=== PATIENT | female | born 1950 | race Caucasian/White ===

== ENCOUNTER 2020-07-20 09:26 | Outpatient (CLI) | payer OTHER, SELFPAY ==
--- NOTE | ~2020-07-20 | MM_ITS ---
EXAMINATION: MM screening [facility] BI w noe HISTORY: Screening TECHNIQUE: Craniocaudal and mediolateral oblique 3-D tomosynthesis images were obtained and synthetic 2-D images were generated. CAD analysis was submitted and interpreted. COMPARISON: Comparison to multiple prior studies sequentially, with oldest reviewed study dated 07/01. BREAST PARENCHYMAL COMPOSITION: There are scattered areas of fibroglandular density. FINDINGS: There is no evidence of suspicious mass, calcification, or architectural distortion to sugg est malignancy in either breast. There has been no suspicious interval change. IMPRESSION: 1. No mammographic evidence of malignancy. 2. Recommend routine screening mammography in one year. BI-RADS Category 1: Negative Reviewed, dictated and finalized at location A.
== END 2020-07-20 09:27 | disposition home or self-care (01) ==
LOC: ANHIMG 09:32
PROVIDERS: PCP Physician Assistant; Visit Provider Physician Assistant
DX: Z12.31 Encounter for screening mammogram for malignant neoplasm of breast (principal)
CPT/HCPCS: 77063; 77067

== ENCOUNTER → 2020-09-02 10:21 | Outpatient (CLI) | payer OTHER, SELFPAY ==
--- NOTE | ~2020-09-02 | MR_ITS ---
EXAMINATION: MR shoulder RT wo con DATE: 09/02/2020 11:18 INDICATION: Right shoulder pain. TECHNIQUE: Magnetic resonance imaging (MRI) of the right shoulder was performed without intravenous c ontrast. Sequences included axial PD-weighted FS FSE, coronal oblique PD-weighted FS FSE and T2-weigh russ FS FSE, and sagittal oblique T2-weighted FS FSE and T1-weighted FSE. COMPARISON: None. FINDINGS: Coracoacromial arch: The acromion undersurface is curved in morphology (type II). There is severe acromioclavicular joint osteoarthritis including inferiorly directed osteophytes. There is moderate subacromial/subdeltoid bu rsitis. Rotator cuff: There is a full-thickness tear of anterior supraspinatus tendon measuring 4 mm anterior to posterior by 8 mm proximal to distal. There is severe supraspinatus and infraspinatus tendinopathy. Teres minor tendon is normal. There is mild subscapularis tendinopathy. There is no asymmetric fatty atrophy of the rotator cuff muscle bellies. Biceps tendon and glenoid labrum: Biceps tendon is in bicipital groove. Intra-articular biceps tendon is normal. The glenoid labrum is normal. Fluid: There is a small glenohumeral joint effusion. Bones/cartilage: There is cartilage surface irregularity of glenoid and humeral head. IMPRESSION: 1. Full-thickness rotator cuff tear. 2. Mild glenohumeral joint chondrosis. 3. Severe acromioclavicular joint osteoarthritis. 4. Moderate subacromial/subdeltoid bursitis and small glenohumeral joint effusion. Reviewed, dictated and finalized at location A. 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 Full-thickness rotator cuff tear. 2. Mild glenohumeral joint chondrosis. 3. Severe acromioclavicular joint osteoarthritis. 4. Moderate subacromial/subdeltoid bursitis and small glenohumeral joint effusi on.
== END ==
PROVIDERS: PCP Physician Assistant; Visit Provider Orthopaedic Surgery
DX: M19.012 Primary osteoarthritis, left shoulder (principal); M75.51 Bursitis of right shoulder; M75.121 Complete rotator cuff tear or rupture of right shoulder, not specified as traumatic; M25.411 Effusion, right shoulder
CPT/HCPCS: 73221

== ENCOUNTER 2020-09-12 09:09 | Outpatient (NON) | payer OTHER, SELFPAY ==
[2020-09-12 18:51] LABS: SARS-CoV-2 RNA PCR Positive
== END 2020-09-12 09:10 ==
LOC: ANHCOVIDDT 09:12
PROVIDERS: PCP Physician Assistant; Visit Provider Physician Assistant
DX: U07.1 COVID-19 (principal)
CPT/HCPCS: 87635; C9803; U0003

== ENCOUNTER → 2021-01-02 14:17 | Outpatient (REF) | payer OTHER, SELFPAY | LOC: ANHLAB 14:17 | PROVIDERS: PCP Physician Assistant; Visit Provider Nurse Practitioner | DX: L72.0 Epidermal cyst (principal) | CPT/HCPCS: 88304 ==

== ENCOUNTER → 2021-06-14 10:45 | Outpatient (CLI) | payer OTHER, SELFPAY ==
--- NOTE | ~2021-06-14 | XR_ITS ---
EXAMINATION: XR hip RT min 2V EXAM DATE: 06/14/2021 11:00 INDICATION: Right groin pain for one month. No known recent injury. TECHNIQUE: Right hip frontal, 'frog leg' projections for interpretation. There is no prior study for comparison. FINDINGS: Smooth right hip femoral head contour, no radiographic evidence of avascular necrosis. The re is mild right hip primary osteoarthritis. There are no acute fractures or dislocations identified. There is no subcutaneous gas. Pelvic calcifications which are most likely phleboliths. There are no radiopaque foreign bodies. IMPRESSION: Mild right hip osteoarthritis. Reviewed, dictated and finalized at location A.
== END ==
PROVIDERS: PCP Physician Assistant; Visit Provider Physician Assistant
DX: M17.11 Unilateral primary osteoarthritis, right knee (principal); R10.31 Right lower quadrant pain
CPT/HCPCS: 73502

== ENCOUNTER 2021-07-06 09:22 | Outpatient (CLI) | payer OTHER, SELFPAY ==
[2021-07-06 10:10] LABS: Basophils Absolute Auto 0.1 K/mm3 (0.0-0.1); Basophils Percent Auto 0.7 % (0.2-1.2); Eosinophils Absolute Auto 0.2 K/mm3 (0-0.3); Eosinophils Percent Auto 2.2 % (0-4.4); Hematocrit 39.5 % (37.0-47.0); Hemoglobin 12.7 g/dL (12.0-15.0); Immature Granulocyte Absolute 0.04 K/mm3 (0.00-0.031); Immature Granulocyte Percent A 0.4 % (0-0.5); Lymphocytes Absolute Auto 2.68 K/mm3 (0.9-3.2); Lymphocytes Percent Auto 28.2 % (18.3-44.2); Mean Corpuscular HGB Conc 32.2 g/dl (32-36); Mean Corpuscular Hemoglobin 31.4 pg (26-34); Mean Corpuscular Volume 97.5 fl (80-100); Mean Platelet Volume 8.4 fl (7.4-10.4); Monocytes Absolute Auto 0.6 K/mm3 (0.1-0.6); Monocytes Percent Auto 6.1 % (2.6-8.5); Neutrophils Absolute Auto 5.9 K/mm3 (1.3-6.7); Neutrophils Percent Auto 62.4 % (45.5-73.1); Platelet Count Result 422 k/mm3 (150-375); Red Blood Count 4.05 M/mm3 (4.2-5.4); White Blood Count 9.5 K/mm3 (4.5-10.0)
[2021-07-06 10:21] LABS: CRP < 0.5 mg/dL (<1.0)
[2021-07-06 12:35] LABS: Erythrocyte Sedimentation Rate 21 mm/hr (0-20)
== END 2021-07-06 09:23 | disposition home or self-care (01) ==
PROVIDERS: PCP Physician Assistant
DX: M25.559 Pain in unspecified hip (principal)
CPT/HCPCS: 36415; 85025; 85652; 86140

== ENCOUNTER 2021-08-31 10:40 | Emergency (ER) | payer OTHER, SELFPAY ==
--- NOTE | ~2021-08-31 | XR_ITS ---
EXAMINATION: XR foot RT min 3V DATE: 08/31/2021 10:58 INDICATION: Lateral right midfoot pain post injury 2 days prior TECHNIQUE: Dorsoplantar, two oblique and lateral views of the right foot were obtained. COMPARISON: None. FINDINGS: Nondisplaced intra-articular fracture at the lateral base/tuberosity of the right fifth metatarsal. A lignment remains essentially anatomic with no significant fracture gap or incongruity at the articula r surface. No other fractures identified. Mild polyarticular osteoarthritis at the first metatarsopha langeal and a few tarsometatarsal and interphalangeal joints. IMPRESSION: 1. Nondisplaced intra-articular fracture at the lateral base of the right fifth metatarsal. Reviewed, dictated and finalized at location A. DESIGNER
--- NOTE | 2021-08-31 10:57 | ED.GENADULT ---
HPI - General Adult General Chief complaint: Extremity Injury, Lower Stated complaint: ight foot pain Time Seen by Provider: 08/31/21 10:57 Source: patient Mode of arrival: ambulatory Limitations: no limitations History of Present Illness HPI narrative: 71-year-old female patient presents to the [facility] with complaints of right foot pain. Patient states that 2 days ago she was walking out to the garage and tripped over her 's shoe and twisted her foot. Patient states that she has been having pain to the lateral side of the foot since then. Patient states she has been trying to elevate it and ice it but has been walking on it due to the recent holiday. Denies any numbness or tingling to the toes. Related Data Home Medications Medication Instructions Recorded Confirmed Ca 600 mg-D3 20 mcg-mag oxide 50 tablet PO 07/17/21 zb-Gb-nhvavg-manganese-boron tablet ascorbic acid (vitamin C) 1,000 mg 1 g PO DAILY 07/17/21 tablet aspirin 81 mg tablet,delayed 81 mg PO DAILY 07/17/21 release duloxetine 60 mg capsule,delayed 60 mg PO DAILY 07/17/21 release fluticasone propionate 50 1 spray INTRANASAL DAILY 07/17/21 mcg/actuation nasal spray,suspension gabapentin 800 mg tablet 800 mg PO DAILY 07/17/21 levothyroxine 50 mcg capsule 50 mcg PO DAILY 07/17/21 lisinopril 10 mg tablet 10 mg PO DAILY 07/17/21 metformin 500 mg tablet 500 mg PO DAILY 07/17/21 omega 8-zjd-lmw-fish oil 1,000 mg 1 cap PO DAILY 07/17/21 (120 mg-180 mg) capsule omeprazole 40 mg capsule,delayed 40 mg PO DAILY 07/17/21 release rosuvastatin 5 mg tablet 5 mg PO DAILY 07/17/21 valacyclovir 1 gram tablet 1,000 mg PO .PRN tablet 07/17/21 alendronate 70 mg PO DAILY 08/31/21 08/31/21 Allergies Allergy/AdvReac Type Severity Reaction Status Date / Time No Known Allergies Allergy Unknown Verified 08/31/21 10:56 Review of Systems Review of Systems: CONSTITUTIONAL: Denies fever, chills, or sweats. EYES: Denies visual changes, redness, or discharge. ENT: Denies rhinorrhea, congestion, sore throat, or otalgia. CARDIOVASCULAR: Denies chest pain, palpitations, or edema. RESPIRATORY: Denies cough or dyspnea. GASTROINTESTINAL: Denies abdominal pain, nausea, vomiting, or diarrhea. GENITOURINARY: Denies dysuria or hematuria. SKIN: Denies rash or itching. MUSCULOSKELETAL: Denies back pain, joint pain, or myalgia. Positive right lateral foot pain NEUROLOGIC: Denies headache, numbness, or weakness. PSYCHIATRIC: Denies anxiety or depression. [facility] Past Medical History Medical History Anxiety Diabetes High cholesterol Hypertension after donor nephrectomy requiring medication Thyroid disease Surgical History Surgical History H/O: hysterectomy 1982 History of cholecystectomy History of thyroid surgery Family History Family History Mother Hypertension Family history of diabetes mellitus in first degree relative Other Carcinoma of colon Family history of cardiovascular disease Family history of malignant neoplasm Social History Social History Smoking status: Never smoker Alcohol intake: never Comments At the time of my signature I agree with nursing past medical history, surgical, social, and family history. There is no relevant family history pertinent to the presenting complaint. Exam Narrative: GENERAL: Well-appearing, well-nourished, and in no acute distress. HEAD: Normocephalic, atraumatic. EYES: PERRLA and EOMI. ENT: Nares clear, no rhinorrhea or epistaxis. Mucous membranes moist. NECK: Supple. No lymphadenopathy CHEST: Clear to auscultation. No respiratory distress. HEART: Regular rate and rhythm. No murmur heard. Normal peripheral pulses. ABDOMEN: Soft, nontender, nondistended, normal active bow
[2021-08-31 11:06] VITALS: BP 115/68; PULSE 99; RESP 18; TEMP 36.7; O2SAT 97
== END 2021-08-31 11:16 | disposition home or self-care (01) ==
PROVIDERS: Emergency Provider Nurse Practitioner Family; PCP Physician Assistant
DX: S92.901A Unspecified fracture of right foot, initial encounter for closed fracture (principal); W18.09XA Striking against other object with subsequent fall, initial encounter; E11.9 Type 2 diabetes mellitus without complications; E78.00 Pure hypercholesterolemia, unspecified; I10 Essential (primary) hypertension; Z90.5 Acquired absence of kidney; E07.9 Disorder of thyroid, unspecified; Z79.82 Long term (current) use of aspirin
CPT/HCPCS: 73630; 99213; G0463

== ENCOUNTER → 2021-09-14 09:06 | Outpatient (CLI) | payer OTHER, SELFPAY ==
--- NOTE | ~2021-09-14 | MR_ITS ---
EXAMINATION: MR cervical spine wo con EXAM DATE: 09/14/2021 10:07 INDICATION: Paresthesia of skin paresthesia of skin. Bilateral foot numbness. TECHNIQUE: Multi-sequential, multiplanar MR images of the cervical spine were obtained without contra st. Axial T2, axial T2 MERGE sequence. Sagittal T1, T2, T2 fat saturation images also obtained. Th ere is no prior study for comparison. FINDINGS: There is moderate disc disease from C3 through C7. The vertebral bodies are aligned in the AP dimension. The spinal cord signal intensity and intrinsic morphology is normal. Cervicomedullary junction is normal in appearance. There are no suspicious marrow signal abnormalities. Paraspinal sof t tissue is unremarkable. Level by level evaluation: C2-C3: Disc does not extend beyond the endplate margin. Uncovertebral joint arthropathy: None. Facet joint arthropathy: Mild to moderate right, mild left. Neural foraminal stenosis: No stenosis. Central canal stenosis: No stenosis. C3-C4: There is a mild diffuse disc bulge. Uncovertebral joint arthropathy: Moderate bilateral. Facet joint arthropathy: Moderate to severe bilateral. Neural foraminal stenosis: Moderate to severe bilateral. Central canal stenosis: Mild. C4-C5: There is a mild diffuse disc bulge. Uncovertebral joint arthropathy: Moderate to severe right, moderate left. Facet joint arthropathy: Moderate to severe bilateral. Neural foraminal stenosis: Moderate to severe bilateral. Central canal stenosis: Mild. C5-C6: There is a mild diffuse disc bulge. Uncovertebral joint arthropathy: Moderate to severe left, moderate right. Facet joint arthropathy: Moderate bilateral. Neural foraminal stenosis: Moderate to severe left, mild right. Central canal stenosis: Mild. C6-C7: There is a mild to moderate diffuse disc bulge. Uncovertebral joint arthropathy: Moderate bilateral. Facet joint arthropathy: Moderate bilateral. Neural foraminal stenosis: Moderate left, mild right. Central canal stenosis: Mild. C7-T1: Disc does not extend beyond the endplate margin. Uncovertebral joint arthropathy: Moderate bilateral. Facet joint arthropathy: Moderate right, mild left. Neural foraminal stenosis: No stenosis. Central canal stenosis: No stenosis. IMPRESSION: 1. Significant multilevel neural foraminal stenosis as detailed above. Reviewed, dictated and finalized at location A. 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
== END ==
PROVIDERS: PCP Physician Assistant; Visit Provider Nurse Practitioner Gerontology
DX: R20.2 Paresthesia of skin (principal); M47.813 Spondylosis without myelopathy or radiculopathy, cervicothoracic region; M48.03 Spinal stenosis, cervicothoracic region
CPT/HCPCS: 72141

== ENCOUNTER → 2022-01-28 11:22 | Outpatient (CLI) | payer OTHER, SELFPAY ==
--- NOTE | ~2022-01-28 | DEXA_ITS ---
Bone Density Report Name: DEVANTE RING Age: 71 Sex: Female Ethnicity: White Date of : 1950 Indication: postmenopausal; screening for osteoporosis; parental hip fracture; height loss; hysterectomy; Referring Provider: ELSA, SHANTANU Study: Bone densitometry was performed. Exam Date: January 28, 2022 Accession number: [id number] Bone Density: Region BMD T-score Z-score Classification AP Spine (L1-L4) 0.837 -1.9 0.2 Osteopenia Femoral Neck (Left) 0.710 -1.3 0.5 Osteopenia Total Hip (Left) 0.863 -0.7 0.8 Normal Femoral Neck (Right) 0.798 -0.5 1.3 Normal Total Hip (Right) 0.843 -0.8 0.7 Normal Total Hip Mean 0.853 -0.8 0.8 Normal World Health Organization criteria for BMD impression classify patients as: Normal (T-score at or above -1.0), Osteopenia (T-score between -1.0 and -2.5), or Osteoporosis (T-score at or below -2.5). 10-year Fracture Risk: FRAX not reported because: Treated for osteoporosis Clinical Information Provided by Patient: Parent has had a hip fracture Is being treated for osteoporosis Has used the following medications: Fosamax (i.e. alendronate), Vitamin D, Calcium, LEVOTHYROXINE Has the following medical conditions: Hysterectomy, HX OF VAGINAL CA W/ RADIATION AND CHEMO -2019 Patient maximum height was 62.0 Menopause Age: 32 No regular weight bearing exercise Drinks caffeinated beverages Onset of menses at age 14 Number of children 2 Impression: The patient has low bone mass, based on the Total Spine T-score. The patient has risk factors, including: parental hip fracture. Discussion: It is important to ask patients whether they are taking their medications and to encourage continued and appropriate compliance with their osteoporosis therapies to reduce fracture risk. It is also important to review their risk factors and encourage appropriate calcium and vitamin D intakes, exercise, fall prevention and other lifestyle measures. Follow-Up: Consider a repeat BMD and Vertebral Fracture Assessment (VFA) exam in 2 years or sooner if medically necessary, to reassess this patient's status. Reported by: KAREN on 01/28/2022 1:54:00 PM. Reviewed, dictated and finalized at location ALisa HANKINS
--- NOTE | ~2022-01-28 | MM_ITS ---
EXAMINATION: MM screening [facility] BI w noe HISTORY: Screening TECHNIQUE: Craniocaudal and mediolateral oblique 3-D tomosynthesis images were obtained and synthetic 2-D images were generated. CAD analysis was submitted and interpreted. COMPARISON: Comparison to multiple prior studies sequentially, with oldest reviewed study dated 06/2014. BREAST PARENCHYMAL COMPOSITION: There are scattered areas of fibroglandular density. FINDINGS: There is no evidence of suspicious mass, calcification, or architectural distortion to sugg est malignancy in either breast. There has been no suspicious interval change. IMPRESSION: 1. No mammographic evidence of malignancy. 2. Recommend routine screening mammography in one year. BI-RADS Category 1: Negative Reviewed, dictated and finalized at location A.
== END ==
PROVIDERS: PCP Physician Assistant; Visit Provider Physician Assistant
DX: Z12.31 Encounter for screening mammogram for malignant neoplasm of breast (principal); Z78.0 Asymptomatic menopausal state; M85.89 Other specified disorders of bone density and structure, multiple sites
CPT/HCPCS: 77063; 77067; 77080

== ENCOUNTER → 2023-04-16 12:19 | Outpatient (CLI) | payer OTHER, SELFPAY ==
--- NOTE | ~2023-04-16 | MM_ITS ---
EXAMINATION: MM screening [facility] BI w noe HISTORY: Screening mammogram TECHNIQUE: Craniocaudal and mediolateral oblique 3-D tomosynthesis images were obtained and synthetic 2-D images were generated. CAD analysis was submitted and interpreted. COMPARISON: January 28, 2022, July 20, 2020, May 01, 2019 bilateral screening mammogram examination s BREAST PARENCHYMAL COMPOSITION: There are scattered areas of fibroglandular density. FINDINGS: There is no evidence of suspicious mass, calcification, or architectural distortion to sugg est malignancy in either breast. There has been no suspicious interval change. IMPRESSION: 1. No mammographic evidence of malignancy. 2. Recommend routine screening mammography in one year. BI-RADS Category 1: Negative Reviewed, dictated and finalized at location A.
== END ==
PROVIDERS: PCP Physician Assistant; Visit Provider Physician Assistant
DX: Z12.31 Encounter for screening mammogram for malignant neoplasm of breast (principal)
CPT/HCPCS: 77063; 77067

== ENCOUNTER 2023-08-06 16:40 | Emergency (ER) | payer OTHER, SELFPAY ==
--- NOTE | ~2023-08-06 | XR_ITS ---
EXAM: XR knee RT min 4V DATE: 08/06/2023 17:03 HISTORY: KNEE GAVE OUT ON STAIRS, LIMITED ROM . COMPARISON: None available. FINDINGS: Decreased mineralization. No fracture or dislocation. No lytic or blastic lesion. Mild tri compartmental osteoarthritis spaces are maintained. No erosion or periosteal change. Soft tissues wit hin normal limits. IMPRESSION: No acute osseous finding in the right knee. Reviewed, dictated and finalized at location K.
[2023-08-06 16:50] VITALS: BP 109/62; PULSE 100; RESP 12; TEMP 36.9; O2SAT 96
--- NOTE | 2023-08-06 17:23 | ED.LOWEXIN ---
HPI - Extremity Injury (Lower) General Chief Complaint: Extremity Injury, Lower Stated Complaint: Right Knee Pain Time Seen by Provider: 08/06/23 17:00 Source: patient Mode of arrival: ambulatory Limitations: no limitations History of Present Illness HPI Narrative: Tracey is a 73-year-old female patient presenting to clinic today with complaints of right knee pain that occurred today. She reports she was walking up some steps and posteriorly hyperextended her knee and felt a pop. Has pain to the posterior knee. States pain is very severe when she is trying to ambulate. Related Data Home Medications Medication Instructions Recorded Confirmed Ca 600 mg-D3 20 mcg-mag oxide 50 1 tablet PO DAILY 07/17/21 01/02/23 qg-Dn-fifrcg-manganese-boron tablet (Calcium 600-D3 Plus (mag-zinc)) ascorbic acid (vitamin C) 1,000 mg 1 g PO DAILY 07/17/21 01/02/23 tablet aspirin 81 mg tablet,delayed 81 mg PO DAILY 07/17/21 01/02/23 release (Adult Aspirin Regimen) duloxetine 60 mg capsule,delayed 60 mg PO DAILY 07/17/21 01/02/23 release fluticasone propionate 50 1 spray intranasal DAILY 07/17/21 01/02/23 mcg/actuation nasal spray,suspension gabapentin 800 mg tablet 800 mg PO DAILY 07/17/21 01/02/23 levothyroxine 50 mcg capsule 50 mcg PO DAILY 07/17/21 01/02/23 lisinopril 10 mg tablet 10 mg PO DAILY 07/17/21 01/02/23 metformin 500 mg tablet 500 mg PO DAILY 07/17/21 01/02/23 omega 0-wld-zkn-fish oil 1,000 mg 1 cap PO DAILY 07/17/21 01/02/23 (120 mg-180 mg) capsule (Fish Oil) omeprazole 40 mg capsule,delayed 40 mg PO DAILY 07/17/21 01/02/23 release rosuvastatin 5 mg tablet 5 mg PO DAILY 07/17/21 01/02/23 valacyclovir 1 gram tablet 1,000 mg PO .PRN 07/17/21 01/02/23 alendronate 70 mg tablet 70 mg PO DAILY 08/31/21 01/02/23 tumeric 100 mg-iona 150 mg-olive cap PO 08/02/22 01/02/23 50 mg-oreg 150 mg-caprylate capsule Allergies Allergy/AdvReac Type Severity Reaction Status Date / Time No Known Allergies Allergy Unknown Verified 08/06/23 16:50 Review of Systems Review of Systems: Pertinent positives per HPI. Patient denies any fever, chills, rash, headache, visual changes, dizziness, cough, shortness of breath, chest pain, palpitations, nausea, vomiting, diarrhea, constipation, abdominal pain, or any urinary issues. PMFSH Past Medical History Medical History Anxiety Diabetes High cholesterol History of bruising easily History of stress test Hypertension after donor nephrectomy requiring medication Numbness of left hand Thyroid disease Surgical History Surgical History H/O: hysterectomy 1982 History of carpal tunnel surgery History of cholecystectomy History of thyroid surgery History of tooth extraction Family History Family History Mother Hypertension Family history of diabetes mellitus in first degree relative Grandparent Cancer Other Carcinoma of colon Family history of cardiovascular disease Family history of malignant neoplasm Social History Social History Smoking status: Never smoker Alcohol intake: never Substance use: never Substance use type: does not use Lack of Transportation: No Lack of Food: Never True Current Housing: I Have Housing Concerned About Future Housing: No Difficulty Paying Gas/Electric Bills: No Difficulty Paying for Meds: No Currently Unemployed: No Education: High School Diploma/GED Difficulty w/ Childcare or Family Care: No Comments At the time of my signature, I reviewed and agree with the nursing past medical, surgical, social, and family history. There is no relevant family history pertinent to the patient complaint. Exam Narrative: General: Well-developed, well nourished, in no apparen
== END 2023-08-06 17:30 | disposition home or self-care (01) ==
PROVIDERS: Emergency Provider Nurse Practitioner Family; PCP Physician Assistant
DX: S83.521A Sprain of posterior cruciate ligament of right knee, initial encounter (principal); X50.9XXA Other and unspecified overexertion or strenuous movements or postures, initial encounter; E78.00 Pure hypercholesterolemia, unspecified; I10 Essential (primary) hypertension; E11.9 Type 2 diabetes mellitus without complications; Z79.84 Long term (current) use of oral hypoglycemic drugs; E89.0 Postprocedural hypothyroidism; Z79.82 Long term (current) use of aspirin; Z90.5 Acquired absence of kidney
CPT/HCPCS: 73564; 99213; G0463

== ENCOUNTER → 2023-09-18 12:48 | Outpatient (CLI) | payer OTHER, SELFPAY ==
--- NOTE | ~2023-09-18 | MR_ITS ---
EXAMINATION: MR shoulder LT wo con DATE: 09/18/2023 13:25 INDICATION: Generalized left shoulder pain radiating down the arm and decreased range of motion TECHNIQUE: Magnetic resonance imaging (MRI) of the left shoulder was performed without intravenous co ntrast. Sequences included axial PD-weighted FS FSE, coronal oblique PD-weighted FS FSE, coronal obli que T2-weighted FS FSE, sagittal PD-weighted FS FSE, and sagittal T1-weighted SE. COMPARISON: None. FINDINGS: Coracoacromial arch: The acromion undersurface is curved in morphology (type II). Small anterior subacromial spur at the a cromial attachment of the otherwise normal coracoacromial ligament. Moderate acromioclavicular osteoa rthritis. Rotator cuff: Moderate supraspinatus and infraspinatus tendinopathy. There is a linear tear plane which appears to extend obliquely from the anterior bursal side of the supraspinatus tendon posteriorly to the bursal side of the infraspinatus tendon without a homogeneously fluid signal intensity tear defect. There is associated 1 cm medial retraction of an intrasubstance component to the tear at the conjoined portio n of the tendon. Intrasubstance split tear in the distal infraspinatus tendon with small ganglion cys t tracking 2.5 cm medially from the middle facet footplate. The subscapularis and teres minor tendons are normal. Normal rotator cuff muscle bulk and signal. Biceps tendon, glenoid labrum and glenohumeral cartilage: Long head of the biceps tendon is normal. Glenoid labrum is normal. Glenohumeral cartilage is normal. Fluid: Physiologic amount of fluid in the glenohumeral joint and biceps tendon sheath. No loose osteochondr al bodies. Small to moderate amount of fluid in the subacromial/subdeltoid bursa consistent with burs itis. Bones: There is focal mild cystlike and edema-like signal change centrally along the middle facet of the gre ater tuberosity likely related to rotator cuff disease. There is otherwise normal marrow signal with no fracture or pathologic marrow replacing process. IMPRESSION: 1. Moderate supraspinatus and infraspinatus tendinopathy with oblique tear, partial thickness at any given location, but which appears to extend from the bursal side of the supraspinatus tendon anterior ly to the articular side of the infraspinatus tendon posteriorly and with intervening mild retraction of a mild intrasubstance portion of the tear. 2. Moderate acromioclavicular osteoarthritis. 3. Moderate subacromial/subdeltoid bursitis. Reviewed, dictated and finalized at location A. 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 Moderate supraspinatus and infraspinatus tendinopathy with oblique tear, par tial thickness at any given location, but which appears to extend from the burs al side of the supraspinatus tendon anteriorly to the articular side of the inf raspinatus tendon posteriorly and with intervening mild retraction of a mild in trasubstance portion of the tear. 2. Moderate acromioclavicular osteoarthritis. 3. Moderate subacromial/subdeltoid bursitis.
== END ==
PROVIDERS: PCP Physician Assistant
DX: M75.82 Other shoulder lesions, left shoulder (principal); M67.814 Other specified disorders of tendon, left shoulder; M19.012 Primary osteoarthritis, left shoulder; M75.52 Bursitis of left shoulder
CPT/HCPCS: 73221

== ENCOUNTER 2024-01-13 13:02 | Outpatient (CLI) | payer OTHER, SELFPAY ==
--- NOTE | 2024-01-13 13:21 | ECG_ITS ---
Measurements Intervals [place] Rate: 92 P: 36 HI: 160 QRS: 48 QRSD: 85 T: -2 QT: 340 QTc: 390 LOW QRS VOLTAGE IN PRECORDIAL LEADS (QRS DEFLECTION <10 mV IN CHEST LEADS) POSSIBLE ANTERIOR MYOCARDIAL INFARCTION [30 ms Q WAVE IN V3/V4, OR R < 0.2 mV IN V4) OF INDETERMINATE AGE ABNORMAL ECG MTDD
--- NOTE | 2024-01-13 13:21 | ECG_ITS ---
Measurements Intervals [place] Rate: 92 P: 36 [place]: 160 QRS: 48 QRSD: 85 T: -2 QT: 340 QTc: 390 Interpretive Statements SINUS RHYTHM LOW QRS VOLTAGE IN PRECORDIAL LEADS [QRS DEFLECTION < 1.0 mV IN CHEST LEADS] POSSIBLE ANTERIOR MYOCARDIAL INFARCTION [30 ms Q WAVE IN V3/V4, OR R < 0.2 mV IN V4], OF INDETERMINATE AGE ABNORMAL ECG SEE SCANNED COPY FOR SIGNATURE MTDD
[2024-01-13 14:14] LABS: Anion Gap 11 mmol/L (4-12); Blood Urea Nitrogen 19 mg/dL (7-17); Calcium 9.8 mg/dL (8.4-10.2); Carbon Dioxide 24 mmol/L (22-30); Chloride 105 mmol/L (98-107); Estimated Glomerular Filt Rate > 60; Glucose 139 mg/dL (65-110); Potassium 4.1 mmol/L (3.4-5.0); Sodium 140 mmol/L (137-145)
== END 2024-01-13 13:03 | disposition home or self-care (01) ==
LOC: ANHSURGERY 13:05
PROVIDERS: Anesthesiology; PCP Physician Assistant; Visit Provider Orthopaedic Surgery
DX: Z01.818 Encounter for other preprocedural examination (principal); E11.9 Type 2 diabetes mellitus without complications; R94.31 Abnormal electrocardiogram [ECG] [EKG]; R93.1 Abnormal findings on diagnostic imaging of heart and coronary circulation
CPT/HCPCS: 36415; 80048; 93005

== ENCOUNTER 2024-01-16 01:09 | Day surgery (SDC) | payer OTHER, SELFPAY ==
[2024-01-12 12:46] VITALS: BMI 27.1
--- NOTE | 2024-01-12 12:57 | PC.NURSE ---
PRE-OP INSTRUCTIONS, PLEASE READ CAREFULLY Report to the Outpatient Waiting Room, entrance under the green pavilion located off [facility], at time _1000_ on date _01/16/24_. Planned Procedure Time: _1200_. Time changes happen often and if your time is changed the preop area will call you the afternoon before. - You and your visitor will be asked to self-screen and do not enter if you have any COVID symptoms. - A mask is optional within the hospital at this time. Patients may have clear liquids (water, carbonated beverages, clear teas, apple juice) until 3 hours prior to surgery with a maximum of 20 ounces. - No food from midnight until time of surgery Take the following medications with a SIP of water the morning of surgery: _DULOXETINE, GABAPENTIN, LEVOTHYROXINE, & NASAL SPRAY_ DO NOT STOP ANY OF YOUR OTHER PRESCRIPTION MEDICATIONS PRIOR TO SURGERY ?EXCEPT THE FOLLOWING Medications to discontinue per DR. MARTINEZ - _PT STATES STOPPING ASPIRIN 12/26/23_ Medications to discontinue per ANESTHESIA - _VITAMINS/SUPPLEMENTS 3 DAYS PRIOR TO SURGERY, Date to take last dose 01/12/24_ Please no make-up, nail yemeni, hairspray, perfume, deodorant, or body powder the day of surgery. No jewelry (including any body piercings) or valuables the day of surgery, leave them at home. Please take a shower or bath the night before, or the morning of, surgery with an antibacterial soap. Wear comfortable, loose fitting clothing. Children are encouraged to wear pajamas. - Jewelry must be removed prior to entering the operating room. Rings and piercings that are not removed may be cut off. - The hospital will not accept responsibility for valuables. - Please leave all valuables, including medications, at home the day of surgery. If you are going home after surgery, a licensed dedicated regional driver must drive you home. - NO public transportation without another adult if you receive anesthesia. - We recommend that an adult stay with you for 24 hours following discharge. - We also recommend that you do not drive, make important decision, drink alcoholic beverages, or take any drugs that were not prescribed by your health care provider for at least 24 hours after your discharge time. Follow any additional instructions given to you from your surgeon. If you or anyone in your household have experienced Covid symptoms in the past week, please notify your surgeon or the nurse liaison at the phone number below for possible testing. Telephone instructions given to _PATIENT_and asked if any additional questions and then verbalized understanding. Patient advised to call surgeon office or pre surgery nurse liaison [phone] if any additional questions.
[2024-01-16] VITALS (8 sets, daily range): BP systolic 109–129; BP diastolic 56–74; PULSE 82–87; RESP 13–19; TEMP 36.3–36.4; O2SAT 93–100; BMI 26.7
[2024-01-16] MEDS: LACTATED RINGERS 1,000 ML 30 ML IV CONT ×2 (10:25→14:20)
[2024-01-16 10:37] LABS: Glucose Point of Care 122 mg/dl (65-105)
[2024-01-16] MEDS: ACETAMINOPHEN 500 MG TABLET 1000 MG PO (10:47)
[2024-01-16] MEDS: KETOROLAC 15 MG/ML VIAL (*BKC) IV PUSH (10:48)
--- NOTE | 2024-01-16 11:18 | WPDHPUPDATE1 ---
History and Physical Update Update Date/Time: 01/16/24 11:18 History and Physical has been reviewed, including an updated exam of the patient. There are NO changes in the patient's condition. Risks, benefits, and alternatives have been discussed and questions answered. Patient agrees to proceed with procedure.
--- NOTE | 2024-01-16 11:23 | WPDANESEPPF ---
Anes - Initial Pre Proc Eval Procedure: Operation Date: 01/16/24 12:00 Proposed Procedures p Left Arthroscopic Rotator Cuff Repair with Biceps Tenodesis, Subacromial Decompression - Refugio Gomez MD Date/Time: 01/16/24 11:23 Surgeon: Refugio Gomez MD Pre Op Diagnosis: partial rot cuff tear, impingement syndrome lft Patient Data Age: 73 Gender: F Height: 1.55 m Weight: 64.2 kg Last Vital Signs Temp 97.6 F 01/16/24 10:07 Pulse 87 01/16/24 10:07 Resp 16 01/16/24 10:07 BP 114/66 01/16/24 10:07 Pulse Ox 96 01/16/24 10:07 O2 Del Method Room Air 01/16/24 10:07 Allergies Allergy/AdvReac Type Severity Reaction Status Date / Time No Known Allergies Allergy Unknown Verified 01/16/24 10:53 Home Medications Medication Instructions Recorded Confirmed Type Ca 600 mg-D3 20 mcg-mag oxide 50 1 tablet PO DAILY 07/17/21 01/16/24 History qb-Rg-nrocnt-manganese-boron tablet (Calcium 600-D3 Plus (mag-zinc)) ascorbic acid (vitamin C) 1,000 mg 1 g PO DAILY 07/17/21 01/16/24 History tablet aspirin 81 mg tablet,delayed 81 mg PO DAILY 07/17/21 01/12/24 History release (Adult Aspirin Regimen) duloxetine 60 mg capsule,delayed 60 mg PO DAILY 07/17/21 01/16/24 History release fluticasone propionate 50 1 spray intranasal DAILY 07/17/21 01/12/24 History mcg/actuation nasal spray,suspension gabapentin 800 mg tablet 800 mg PO TID 07/17/21 01/16/24 History levothyroxine 50 mcg capsule 50 mcg PO DAILY 07/17/21 01/16/24 History lisinopril 10 mg tablet 10 mg PO DAILY 07/17/21 01/12/24 History metformin 500 mg tablet 500 mg PO DAILY 07/17/21 01/16/24 History omega 9-kjd-nmu-fish oil 1,000 mg 1 cap PO DAILY 07/17/21 01/16/24 History (120 mg-180 mg) capsule (Fish Oil) omeprazole 40 mg capsule,delayed 40 mg PO DAILY 07/17/21 01/12/24 History release rosuvastatin 5 mg tablet 5 mg PO DAILY 07/17/21 01/12/24 History valacyclovir 1 gram tablet 1,000 mg PO .PRN PRN Cold Sores 07/17/21 01/12/24 History alendronate 70 mg tablet 70 mg PO DAILY 08/31/21 01/12/24 History Laboratory Tests 01/16/24 10:34 POC Capillary Glucose 122 H mg/dl (65-105) Patient hx anesthesia problems: none Family hx anesthesia problems: none Results Review: All pre-operative results and documents have been reviewed as part of the pre-operative evaluation. [facility] Past Medical History Medical History Anxiety Diabetes High cholesterol History of bruising easily History of stress test Hypertension after donor nephrectomy requiring medication Numbness of left hand Thyroid disease Surgical History Surgical History H/O: hysterectomy 1982 History of carpal tunnel surgery History of cholecystectomy History of thyroid surgery History of tooth extraction Family History Family History Mother Hypertension Family history of diabetes mellitus in first degree relative Grandparent Cancer Other Carcinoma of colon Family history of cardiovascular disease Family history of malignant neoplasm Social History Social History Smoking status: Never smoker Second hand tobacco smoke exposure: No Alcohol intake: never Substance use: never Substance use type: does not use Do You Feel Safe in your Home?: Yes Lack of Transportation: No Lack of Food: Never True Current Housing: I Have Housing Concerned About Future Housing: No Difficulty Paying Gas/Electric Bills: No Difficulty Paying for Meds: No Currently Unemployed: No Education: High School Diploma/GED Difficulty w/ Childcare or Family Care: No Living arrangements: with family Spiritual care concerns: No Anes - Eval Final PreProcedure Day of Procedure
--- NOTE | 2024-01-16 12:06 | WPDANESPNB ---
Anes - Peripheral Nerve Block Date/Time: 01/16/24 12:06 I have discussed with the patient/family/POA the placement of a peripheral nerve block for post-operative pain management, including associated risks, benefits, complications, and side effects. Alternative methods of post-operative analgesia were detailed. Questions were solicited and answers provided to the satisfaction of the patient/family/POA. Time-Out: A pre-procedural Time-Out was completed immediately before starting the procedure and confirmed: Patient Identification, Site, Procedure, Patient Position and the Availability of Requisite Equipment. Clinical Indications: Acute post-operative pain management requested by the operative surgeon. Nerve Block Insertion Note Anes-nerve block: interscalene left Patient position: supine Skin prep: chlorhexidine Needle: 22 gauge, stimulating, insulated echogenic needle. Needle length: 80 mm Technique: ultrasound Injectate: other (Bupiv 0.5%, 15 mls. ) Observations: tolerated well Complications: none Procedure start time:: 1150 Procedure end time:: 1157
[2024-01-16] MEDS: EPINEPHrine HCL INJ 1 MG/ML AMPUL 3 MG IRRIGATION (13:17)
--- NOTE | 2024-01-16 14:21 | W.PM.PROC2 ---
Procedure Note - Detailed Date of Procedure 01/16/24 Pre-op Diagnosis partial rot cuff tear, impingement syndrome t Post-op Diagnosis Other (Left shoulder 1. Complete Rotator cuff tear 2. Subacromial impingement) Procedure Performed Left shoulder 1. Arthroscopic rotator cuff repair 2. Arthroscopic subacromial decompression Surgeon Refugio Gomez MD Anesthesia General and Regional ( interscalene block) Findings Full-thickness tear of the supraspinatus with retraction. U shaped type tear with significant tendon loss. Fairly narrow and width. Able to just create 2 bone tunnels. Six tunnel rip stop. Two additional horizontal mattress sutures brought to a supplemental SwiveLock anchor laterally. Description of Procedure Preoperative antibiotics were given. An interscalene block was administered in the preoperative area. The patient was bought brought to the operating room. A general anesthetic was administered. The patient was carefully positioned in the beach chair position. The head and neck were carefully positioned. The non operative extremity was also carefully positioned. The shoulder was prepped and draped in the usual sterile fashion. Examination was performed. Standard posterior and anterior arthroscopic portals were established. Inflow achieved with the arthroscopic pump using saline and epinephrine. The glenohumeral joint was carefully inspected. There was no arthritic change. The labrum was intact. The biceps was healthy. The subscapularis normal. The supraspinatus anteriorly was completely torn. There was a thin cuff of bursa and intact bursal tissue over some of the defect. Attention was turned to the subacromial space. A complete bursectomy was performed. The rotator cuff and footprint were lightly debrided. A modest acromioplasty was performed. The tear configuration was carefully assessed. At this point, 2 tunnels were created at the rotator cuff. The ArthroTunneler technique was utilized. Three sutures were passed through each tunnel. All sutures were then passed through the cuff tissue. The sutures were tied arthroscopically. An additional horizontal mattress suture was placed at the anterior supraspinatus tissue and also at the center of the main retracted portion of the supraspinatus. These were brought laterally to a SwiveLock anchor reinforcing the tear nicely. The arthroscopic instruments were removed. The wounds were closed with 3-0 Monocryl subcuticular suture and steri strips. There were no complications. A sling was applied and the patient brought to the recovery room. Implants Arthrex SwiveLock anchor 4.75 mm. Estimated Blood Loss 10 Pathology None sent Complications No immediate complications Condition Stable Disposition PACU [facility] Billing Surgery - Charge Forward: Surgery Billing
[2024-01-16 14:59] LABS: Glucose Point of Care 127 mg/dl (65-105)
== END 2024-01-16 16:09 | disposition home or self-care (01) ==
PROVIDERS: PCP Physician Assistant; Visit Provider Orthopaedic Surgery
PROC: (CPT 29805; principal; 2024-01-16 12:00)
DX: M75.112 Incomplete rotator cuff tear or rupture of left shoulder, not specified as traumatic (principal); M75.42 Impingement syndrome of left shoulder; G89.18 Other acute postprocedural pain; E11.9 Type 2 diabetes mellitus without complications; E78.00 Pure hypercholesterolemia, unspecified; E07.9 Disorder of thyroid, unspecified; Z90.5 Acquired absence of kidney; Z79.82 Long term (current) use of aspirin; Z79.84 Long term (current) use of oral hypoglycemic drugs
CPT/HCPCS: 29827; 29826; 64415; 36415; 80048; 82948; 93005; A4565; A9270; C1713; J0171; J0690; J1100; J1885; J2250; J2405; J2704; J3010; J7120

== ENCOUNTER 2024-02-23 15:28 | Outpatient (CLI) | payer OTHER, SELFPAY ==
--- NOTE | ~2024-02-23 | XR_ITS ---
EXAMINATION: XR knee LT min 4V DATE: 02/23/2024 15:54 INDICATION: Left knee pain TECHNIQUE: Weight bearing anteroposterior and Rinaldi, sunrise, and flexed lateral views of the lef t knee were obtained COMPARISON: None. FINDINGS: Alignment is normal. No fracture. There are tiny marginal osteophytes in all 3 compartments with rel atively preserved joint spaces consistent with minimal tricompartmental osteoarthritis. No joint effu luciano/layering lipohemarthrosis. Soft tissues are unremarkable. IMPRESSION: 1. Minimal tricompartmental osteoarthritis at the left knee. Reviewed, dictated and finalized at location A.
== END 2024-02-23 15:29 | disposition home or self-care (01) ==
LOC: ANHIMG 15:31
PROVIDERS: PCP Physician Assistant; Visit Provider Physician Assistant Surgical
DX: M17.12 Unilateral primary osteoarthritis, left knee (principal)
CPT/HCPCS: 73564

== ENCOUNTER 2024-03-29 08:29 | Outpatient (CLI) | payer OTHER, SELFPAY ==
--- NOTE | ~2024-03-29 | MR_ITS ---
EXAMINATION: MR knee LT wo con DATE: 03/29/2024 09:03 INDICATION: Meniscal tear presenting with 3 months of posterior and medial left knee pain and knee gi ving out TECHNIQUE: Magnetic resonance imaging (MRI) of the left knee was performed without intravenous contra st. Sequences included coronal PD-weighted FSE, coronal PD-weighted FS FSE, sagittal T2-weighted FSE , sagittal PD-weighted FS FSE and axial PD weighted fat saturated FSE. COMPARISON: None. FINDINGS: Medial compartment: Complex tear of the medial meniscus with both a longitudinal horizontal tear plane extending to the i nferior articular surface of the body and posterior horn and a vertical parrot beak configuration tea r plane beginning at the inner free edge at the posterior horn and extending peripherally and lateral ly to the junction of the posterior horn and body. Shallow chondral ulceration and deeper fissuring a long the lateral half of the anterior weightbearing medial femoral condyle with underlying tiny centr al subchondral osteophyte and mild subarticular edema-like signal change. Cartilage along the medial tibial plateau appears relatively preserved. Lateral compartment: Lateral meniscus is normal. Articular cartilage is normal. Patellofemoral compartment: Deep chondral ulceration with mild underlying edema-like signal change at the central aspect of the p atellar apical ridge and along the inferior margin of the lateral patellar facet. Additional less sev ere partial thickness patellar cartilage loss with mild chondral surface irregularity. Small region o f deep chondral ulceration with mild subarticular edema-like signal change at the superolateral demi n of the lateral trochlea and deep fissuring with mild underlying cortical irregularity and minimal s ubarticular signal change at the inferior aspect of the trochlear groove. Ligaments and tendons: Anterior and posterior cruciate ligaments are normal. The medial collateral ligament and fibular johnnie ateral ligament complex are normal. Patellar tendon is normal. Minimal distal quadriceps tendinopathy . The visualized medial and lateral hamstring tendons as well as the iliotibial band are normal. Fluid: Mild synovitis at the suprapatellar pouch without joint effusion. Tiny loose osteochondral body in th e superior aspect of the recess posterior to the lateral femoral condyle. Small multilobulated Hernandez' s cyst. There is an additional moderate-sized ganglion cyst, potentially a meniscal cyst arising from the medial meniscal tear which extends along the distal semimembranosus tendon and deep to the pes a nserinus. Osseous/other: Bone alignment is normal. No fracture or pathologic marrow replacing process. IMPRESSION: 1. Complex medial meniscal tear. 2. Mild osteoarthritis with regions of high-grade chondromalacia at the medial and patellofemoral com partments. Reviewed, dictated and finalized at location B. IMPRESSION: 1. Complex medial meniscal tear. 2. 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
== END 2024-03-29 08:30 ==
PROVIDERS: PCP Orthopaedic Surgery; Visit Provider Orthopaedic Surgery
DX: S83.232A Complex tear of medial meniscus, current injury, left knee, initial encounter (principal); M17.12 Unilateral primary osteoarthritis, left knee; M94.262 Chondromalacia, left knee; X58.XXXA Exposure to other specified factors, initial encounter
CPT/HCPCS: 73721

== ENCOUNTER 2024-06-10 09:55 | Outpatient (CLI) | payer OTHER, SELFPAY ==
[2024-06-10 12:02] LABS: Anion Gap 14 mmol/L (4-12); Blood Urea Nitrogen 19 mg/dL (7-17); Calcium 10.2 mg/dL (8.4-10.2); Carbon Dioxide 23 mmol/L (22-30); Chloride 100 mmol/L (98-107); Estimated Glomerular Filt Rate > 60; Glucose 158 mg/dL (65-110); Sodium 137 mmol/L (137-145)
== END 2024-06-10 09:56 | disposition home or self-care (01) ==
PROVIDERS: Anesthesiology; PCP Physician Assistant; Visit Provider Orthopaedic Surgery
DX: Z01.818 Encounter for other preprocedural examination (principal); E11.9 Type 2 diabetes mellitus without complications
CPT/HCPCS: 36415; 80048

== ENCOUNTER 2024-06-17 01:39 | Day surgery (SDC) | payer OTHER, SELFPAY ==
--- NOTE | 2024-06-09 10:39 | PC.NURSE ---
Report to the Outpatient Waiting Room, entrance under the green pavilion located off [facility], at time _9 AM on date _06/17/24 . Planned Procedure Time: _11 AM .? Time changes happen often and if your time is changed the preop area will call you the afternoon before. - You and your visitor will be asked to self-screen and do not enter if you have any COVID symptoms. Please call surgeon if you need to reschedule. - A mask is optional within the hospital at this time. Patients may have clear liquids (water, carbonated beverages, clear teas, apple juice) until 3 hours prior to surgery ( 8 AM)with a maximum of 20 ounces. - No food from midnight until time of surgery and no smoking - Infants may have breast milk until 4 hours before surgery, formula 6 hours prior to surgery. - Children will be allowed to drink immediately following surgery.? If applicable, please bring a bottle or sippy cup to assist with drinking. Juice, water, soda, and popsicles are readily available.? For infants on formula, please bring formula the day of surgery.? Pacifiers are allowed. Take only the following medications with a SIP of water on the morning of surgery: _DULOXETINE,GABAPENTIN,LEVOTHYROXINE, DO NOT STOP ANY OF YOUR OTHER PRESCRIPTION MEDICATIONS PRIOR TO SURGERY EXCEPT THE FOLLOWING Medications to discontinue per physician _HOLD ASPIRIN AND IBUPROFEN 7 DAYS PRE OP PER DR MARTINEZ.LAST DOSE 06/09/24.MAY TAKE TYLENOL IF NEEDED FOR PAIN. HOLD ALL VITAMINS AND SUPPLEMENTS 3 DAYS PRE OP.LAST DOSE 06/13/24 Please no make-up, nail iranian, hairspray, perfume, deodorant, or body powder the day of surgery.? No jewelry (including any body piercings) or valuables the day of surgery, leave them at home.? Please take a shower or bath the night before, or the morning of, surgery with an antibacterial soap.? Wear comfortable, loose fitting clothing.? Children are encouraged to wear pajamas. - Jewelry must be removed prior to entering the operating room.? Rings and piercings that are not removed may be cut off. - The hospital will not accept responsibility for valuables.? - Please leave all valuables, including medications, at home the day of surgery. If you are going home after surgery, a licensed route sales delivery driver must drive you home.? - NO public transportation without another adult if you receive anesthesia. - We recommend that an adult stay with you for 24 hours following discharge. - We also recommend that you do not drive, make important decision, drink alcoholic beverages, or take any drugs that were not prescribed by your health care provider for at least 24 hours after your discharge time. Follow any additional instructions given to you from your surgeon. Telephone instructions given to __PATIENT and asked if any additional questions and then verbalized understanding. Patient advised to call surgeon office or pre surgery nurse liaison [phone] if any additional questions.
[2024-06-09 10:48] VITALS: BMI 25.6
[2024-06-17] VITALS (8 sets, daily range): BP systolic 94–113; BP diastolic 62–73; PULSE 74–86; RESP 13–20; TEMP 36.6–37.2; O2SAT 93–96; BMI 26.1
[2024-06-17 09:35] LABS: Glucose Point of Care 142 mg/dl (65-105)
--- NOTE | 2024-06-17 09:53 | WPDANESEPPF ---
Anes - Initial Pre Proc Eval Procedure: Operation Date: 06/17/24 11:00 Proposed Procedures p Left Knee Arthroscopic Partial Medial Meniscectomy - Refugio Gomez MD Date/Time: 06/17/24 09:53 Surgeon: Refugio Gomez MD Pre Op Diagnosis: left knee medial meniscal tear Patient Data Age: 74 Gender: F Height: 1.57 m Weight: 64.8 kg Allergies Allergy/AdvReac Type Severity Reaction Status Date / Time No Known Allergies Allergy Unknown Verified 06/09/24 10:30 Home Medications Medication Instructions Recorded Confirmed Type Ca 600 mg-D3 20 mcg-mag oxide 50 1 tablet PO DAILY 07/17/21 06/09/24 History ub-Ko-jlszja-manganese-boron tablet (Calcium 600-D3 Plus (mag-zinc)) ascorbic acid (vitamin C) 1,000 mg 1 g PO DAILY 07/17/21 06/09/24 History tablet aspirin 81 mg tablet,delayed 81 mg PO DAILY 07/17/21 06/09/24 History release (Adult Aspirin Regimen) duloxetine 60 mg capsule,delayed 60 mg PO DAILY 07/17/21 06/09/24 History release fluticasone propionate 50 1 spray intranasal DAILY 07/17/21 06/09/24 History mcg/actuation nasal spray,suspension gabapentin 800 mg tablet 800 mg PO TID 07/17/21 06/09/24 History levothyroxine 50 mcg capsule 50 mcg PO DAILY 07/17/21 06/09/24 History lisinopril 10 mg tablet 10 mg PO DAILY 07/17/21 06/09/24 History metformin 500 mg tablet 500 mg PO DAILY 07/17/21 06/09/24 History omega 3-hps-zvr-fish oil 1,000 mg 1 cap PO DAILY 07/17/21 06/09/24 History (120 mg-180 mg) capsule (Fish Oil) omeprazole 40 mg capsule,delayed 40 mg PO DAILY 07/17/21 06/09/24 History release rosuvastatin 5 mg tablet 5 mg PO DAILY 07/17/21 06/09/24 History valacyclovir 1 gram tablet 1,000 mg PO .PRN PRN Cold Sores 07/17/21 06/09/24 History alendronate 70 mg tablet 70 mg PO WEEKLY 08/31/21 06/09/24 History acetaminophen 650 mg 650 mg PO Q12H PRN Pain 06/09/24 06/09/24 History tablet,extended release ibuprofen 400 mg tablet 400 mg PO Q6H PRN Pain 06/09/24 06/09/24 History Laboratory Tests 06/17/24 09:18 POC Capillary Glucose 142 H mg/dl (65-105) Patient hx anesthesia problems: none Family hx anesthesia problems: none Results Review: All pre-operative results and documents have been reviewed as part of the pre-operative evaluation. [facility] Past Medical History Medical History Anxiety Diabetes High cholesterol History of bruising easily History of stress test Hypertension after donor nephrectomy requiring medication Numbness of left hand Thyroid disease Surgical History Surgical History H/O: hysterectomy 1982 History of carpal tunnel surgery History of cholecystectomy History of thyroid surgery History of tooth extraction Status post arthroscopy of left shoulder (~01/16/24) Left RCR, SAD, Biceps tenodesis Family History Family History Mother Hypertension Family history of diabetes mellitus in first degree relative Grandparent Cancer Other Carcinoma of colon Family history of cardiovascular disease Family history of malignant neoplasm Social History Social History Smoking status: Never smoker Second hand tobacco smoke exposure: No Alcohol intake: never Substance use: never Substance use type: does not use Do You Feel Safe in your Home?: Yes Lack of Transportation: No Lack of Food: Never True Current Housing: I Have Housing Concerned About Future Housing: No Difficulty Paying Gas/Electric Bills: No Difficulty Paying for Meds: No Currently Unemployed: No Education: High School Diploma/GED Difficulty w/ Childcare or Family Care: No Living arrangements: with family Spiritual care concerns: No Anes - Eval Final PreProcedure Day of Procedure 06/17/24 09:53
--- NOTE | 2024-06-17 09:57 | WPDHPUPDATE1 ---
History and Physical Update Update Date/Time: 06/17/24 09:57 History and Physical has been reviewed, including an updated exam of the patient. There are NO changes in the patient's condition. Risks, benefits, and alternatives have been discussed and questions answered. Patient agrees to proceed with procedure.
[2024-06-17] MEDS: ACETAMINOPHEN 500 MG TABLET 1000 MG PO (10:08)
[2024-06-17] MEDS: LACTATED RINGERS 1,000 ML 30 ML IV CONT (10:08)
[2024-06-17] MEDS: KETOROLAC 15 MG/ML VIAL (*BKC) IV PUSH (10:08)
[2024-06-17] MEDS: ceFAZolin 2 GM/D5W 50 ML 2 GM/50 ML BAG IVPB (10:34)
[2024-06-17] MEDS: BUPIVACAINE/EPINEPHRINE 0.5% 10 ML VIAL 20 ML INFILTRATE (11:20)
--- NOTE | 2024-06-17 11:51 | W.PM.PROC2 ---
Procedure Note - Detailed Date of Procedure 06/17/24 Pre-op Diagnosis Left knee medial meniscal tear Post-op Diagnosis Other (1. Left knee medial meniscus tear 2. Left knee osteochondral defect medial femoral condyle) Procedure Performed Arthroscopic partial medial meniscectomy, and medial femoral condyle microfracture, left knee. Surgeon Refugio Gomez MD Anesthesia General Findings 5 mm x 10 mm osteochondral defect medial femoral condyle. Extensive posterior horn complex medial meniscus tear. The remaining femoral cartilage and tibial cartilage appeared healthy. The ACL was intact. Lateral joint was normal. The patellofemoral articulation showed grade 2/Iii chondromalacia at the distal pole of the patella. The trochlea was normal. Description of Procedure The patient was identified and the surgical site confirmed and signed in the preoperative holding area. Antibiotics were started per protocol, and the patient was brought to the operative room and transferred to the OR table. A general anesthetic was administered. Supine position with the operative lower extremity position in the leg oh[place] after placement of a well padded tourniquet. The leg support was lowered and the contralateral limb was supported with a soft bolster. The knee was prepped and draped in the usual sterile fashion. A time-out was performed. The portal sites were marked and infiltrated with 0.5% Marcaine 20 mL. The limb was exsanguinated and the tourniquet inflated to 300 mL Hg. Standard inferolateral and inferomedial portals were established. Inflow was obtained with the saline pump. The camera was introduced. Diagnostic inspection of the joint was accomplished. The meniscus was debrided with the arthroscopic shaver and punches until stable. The radiofrequency probe was also used for further d?bridement. The medial femoral condylar defect was debrided with the arthroscopic shaver and a curette. Good stable rim of cartilage was created. The 1 cm x 5 mm defect was treated with microfracture. Good bleeding was confirmed at the release of the tourniquet. The arthroscopic instruments were removed. The tourniquet released and wounds closed with subcutaneous 4-0 Monocryl absorbable suture. Steri strips and a sterile dressing were applied. A light elastic wrap was placed. The patient was extubated and brought to the recovery room in stable condition. Estimated Blood Loss 5 Drains No Complications No immediate complications Condition Stable Disposition PACU [facility] Billing Surgery - Charge Forward: Surgery Billing
[2024-06-17 12:32] LABS: Glucose Point of Care 127 mg/dl (65-105)
== END 2024-06-17 13:40 | disposition home or self-care (01) ==
PROVIDERS: PCP Physician Assistant; Visit Provider Orthopaedic Surgery
PROC: (CPT 29870; principal; 2024-06-17 11:00)
DX: S83.232A Complex tear of medial meniscus, current injury, left knee, initial encounter (principal); M24.19 Other articular cartilage disorders, other specified site; X50.0XXA Overexertion from strenuous movement or load, initial encounter; E11.9 Type 2 diabetes mellitus without complications; E78.00 Pure hypercholesterolemia, unspecified; F41.9 Anxiety disorder, unspecified; E07.9 Disorder of thyroid, unspecified; Z90.5 Acquired absence of kidney; Z79.84 Long term (current) use of oral hypoglycemic drugs; Z79.82 Long term (current) use of aspirin
CPT/HCPCS: 29881; 29879; 36415; 80048; 82948; A9270; J0690; J1100; J1885; J2371; J2405; J2704; J3010; J7120

== ENCOUNTER 2024-09-09 13:29 | Outpatient (CLI) | payer OTHER, SELFPAY ==
--- NOTE | ~2024-09-09 | MM_ITS ---
EXAMINATION: MM screening jerald BI w noe HISTORY: Screening TECHNIQUE: Craniocaudal and mediolateral oblique 3-D tomosynthesis images were obtained and synthetic 2-D images were generated. CAD analysis was submitted and interpreted. COMPARISON: Comparison to multiple prior studies sequentially, with oldest reviewed study dated 11/19. BREAST PARENCHYMAL COMPOSITION: Not dense: There are scattered areas of fibroglandular density. FINDINGS: There is no evidence of suspicious mass, calcification, or architectural distortion to sugg est malignancy in either breast. There has been no suspicious interval change. IMPRESSION: 1. No mammographic evidence of malignancy. 2. Recommend routine screening mammography in one year. BI-RADS Category 1: Negative Reviewed, dictated and finalized at location B. [facility]
== END 2024-09-09 13:30 | disposition home or self-care (01) ==
PROVIDERS: PCP Physician Assistant; Visit Provider Physician Assistant
DX: Z12.31 Encounter for screening mammogram for malignant neoplasm of breast (principal)
CPT/HCPCS: 77063; 77067

== ENCOUNTER 2025-03-09 07:59 | Outpatient (CLI) | payer OTHER, SELFPAY ==
--- NOTE | ~2025-03-09 | CT_ITS ---
Non-contrast Head CT History: Dizziness Technique: Axial imaging of the brain was performed prior to and following intravenous administratio n of 100 cc of Omnipaque 350 contrast material. Dose reduction technique was used on this scan by uti lizing automated exposure control and iterative reconstruction technique. The dose-length product (DL P) was 1059.33 mGy-cm. Findings: There is no evidence of intracranial hemorrhage, mass lesion, or acute infarct. Brain par enchyma appears normal. The ventricles and subarachnoid spaces are normal in size. The calvarium ap pears normal. The visualized paranasal sinuses and mastoid air cells are clear. No abnormal postcontrast enhancement. Impression: No significant abnormality seen. Reviewed, dictated and finalized at [facility]. Impression: No significant abnormality seen.
--- OUTSIDE RECORDS SUMMARY | 2025-03-09 08:04 | XMS_ITS | Clinical Summary ---
Author Organization [facility] [address] [facility] Address [address] [place] [address] Care Team Providers Care Healthcare Translator Name Role Phone Christiano Kidd MD Unavailable [phone] Malcom Ramirez MD Unavailable [phone] Jatin Carver MD Unavailable [phone] Adryan Carver MD Unavailable [phone] Tracie Raphael MD Unavailable [phone] Jatin Giron MD Unavailable [phone] Monica Harvey Primary Care Provider [phone] Allergies No known active allergies Medications omega-3 fatty acids-fish oil 360-1,200 mg capsule 1,200 mg 2 (two) times a day Active aspirin 81 mg enteric coated tablet Take 1 tablet (81 mg total) by mouth daily Active ascorbic acid (VITAMIN C) 1,000 mg tablet Take 1 tablet (1,000 mg total) by mouth daily Active calcium carbonate/vitamin D3 (CALCIUM 600 + D,3, ORAL) Take 1 tablet by mouth daily Active blood glucose diagnostic (Contour Next Test Strips) strip TEST EVERYDAY DIRECTED 100 strip 1 2 Active Contour Next Meter misc USE TO TEST SUGAR DAILY 2 Active Microlet Lancet misc USE STRIPS TO TEST ONCE DAILY 2 Active fluticasone propionate (FLONASE) 50 mcg/actuation nasal sprayIndications:S easonal allergies SPRAY 1 SPRAY INTO EACH NOSTRIL EVERY DAY 48 mL 2 4 Active levothyroxine (SYNTHROID) 50 mcg tabletIndications: Acquired hypothyroidism TAKE 1 TABLET (50 MCG TOTAL) BY MOUTH WELLNESS PROGRAM MANAGER BEFORE BREAKFAST 90 tablet 2 4 Active lisinopriL (PRINIVIL,ZESTRIL) 10 mg tabletIndications: 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) Take 1 tablet (10 mg total) by mouth daily 90 tablet 2 4 Active gabapentin (NEURONTIN) 800 mg tablet Take 1 tablet (800 mg total) by mouth 3 (three) times a day 270 tablet [address] (CYMBALTA) 60 mg capsuleIndications :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),Moderate episode of recurrent major depressive disorder (HCC) Take 1 capsule (60 mg total) by mouth 2 (two) times a day 180 capsule 1 4 Active alendronate (FOSAMAX) 70 mg tabletIndications: Osteopenia of lumbar spine Take 1 tablet (70 mg total) by mouth every 7 days Take in the morning with a full glass of water, on an empty stomach, and do not take anything else by mouth or lie down for the next 30 min. 12 tablet 2 4 Active metFORMIN (GLUCOPHAGE) 500 mg tabletIndications: 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) Take 1 tablet (500 mg total) by mouth 2 (two) times a day with meals 180 tablet 2 4 Active valACYclovir (VALTREX) 1 gram tabletIndications: HSV (herpes simplex virus) infection TAKE 1 TABLET BY MOUTH EVERY DAY 90 tablet 1 5 Active omeprazole (PriLOSEC) 20 mg capsuleIndications :Gastroesophageal reflux disease with esophagitis, unspecified whether hemorrhage TAKE 1 CAPSULE BY MOUTH EVERY DAY BEFORE BREAKFAST 90 capsule 2 5 Active rosuvastatin (CRESTOR) 10 mg tablet TAKE 1 TABLET BY MOUTH EVERY DAY 90 tablet 1 5 Active ferrous sulfate 325 mg (65 mg of elemental iron) tabletIndications: Iron Deficiency Anemia Take 1 tablet (325 mg total) by mouth daily with breakfast 90 tablet 1 5 Active Active Problems Problem Noted Date Diagnosed Date Dizziness 02/07/2025 Assessment & Plan (02/07/2025 1:22 PM CDT): This is a significant, separately identifiable problem that was evaluated and managed on the same day as the wellness exam Patient presents with intermittent dizziness over the past 2 months that comes and goes without specific trigger. She has never been worked up for intracranial pathology, but with history of CRC, we will obtain CT head to rule it out. Neuro exam is normal except for some lightheadedness with gait testing and Romberg. EKG shows T-wave inversions, but we have no previous EKG to compare. She reports tinnitus and hearing loss unilaterally in her right ear from an unknown cause, diagnosed when she was 18. Has never seen an ENT but gets frequent ear wax cleanings. Inner ear pathology cannot be excluded due to uncertainty of etiology of her hearing loss, and we may pursue ENT eval if CT head is unremarkable and symptoms persist. Patient's hemoglobin was also noticed to be lower than her baseline with a low transferrin saturation (19%) which could contribute to patient's dizziness. No S/S of bleeding and recent colonoscopy was normal. Will prescribe iron supplement and monitor. - If symptoms persist or worsen or you have an episode of loss of consciousness, please go get evaluated at the emergency department - Start taking your ferrous sulfate, the iron supplement Dyspnea on exertion 02/07/2025 Assessment & Plan (02/07/2025 12:53 PM CDT): This is a significant, separately identifiable problem that was evaluated and managed on the same day as the wellness exam Patient admits to some dyspnea on exertion especially when climbing a hill in her backyard that makes her fatigued. She is otherwise pretty active but there are certain activities that tire her out more than they used to. EKG in clinic today shows T-wave inversions, but we have no previous EKG to compare to. She has never had a cardiac work-up. She denies chest pain or shortness of breath today. Will refer to cardiology for ischemic work-up especially with the new onset dizziness symptoms. - If you start to have severe shortness of breath or chest pain at rest or with exertion, please go to the emergency room for evaluation - Avoid lifting heavy objects and straining as that can precipitate cardiac events Screening for colon cancer 01/06/2025 Family history of colon cancer 01/06/2025 Neuropathy due to type 2 diabetes mellitus 08/29 Assessment & Plan (02/07/2025 1:12 PM CDT): She has history of lower extremity neuropathy. Now she is starting to have some numbness in her left hand, digits 3-5. Likely due to diabetes and history of chemotherapy. She reports her neuropathy has recently gotten worse, but she is on max dose of gabapentin and Cymbalta. Of note, she has stopped taking her B12 supplements. Will obtain a B12 and folate to check her levels. Encouraged patient to start taking her B12 supplement again as that can contribute to nerve health. - Take a B12 supplement OTC daily - Lab work has been sent to [email or web address] for you to get your B12 and folate levels checked Assessment & Plan (08/29/2024 8:09 PM COMBAT CONTROL): 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 Continue gabapentin 800 t.i.d. in the Cymbalta 60 mg b.i.d. she is also on B12 supplementation Need for influenza vaccination 08/29/2024 Assessment & Plan (08/29/2024 8:09 PM COMBAT CONTROL): Flu vaccine updated in the office today Medicare annual wellness visit, subsequent 08/29 Assessment & Plan (08/29/2024 8:09 PM COMBAT CONTROL): Encouraged healthy lifestyle, good nutrition and exercise. Encouraged Calcium and Vitamin D and weight bearing exercise for bone health. Reviewed immunizations. Reviewed age appropirate screenings. Medicare Wellness Documentation is completed within the chart Bilateral impacted cerumen 01/03/2024 Assessment & Plan (01/03/2024 3:50 PM CDT): Bilateral cerumen impaction. Both ears were washed as described under physical exam. Hearing improved and returned to baseline. Difficulty hearing, left 01/03/2024 Assessment & Plan (01/03/2024 3:50 PM CDT): Patient with difficulty hearing. Resolved and returned to baseline after removal cerumen impaction Left foot pain 12/27/2023 Assessment & Plan (12/27/2023 1:09 AM CDT): Patient is complaining of left foot pain. She has not had a history of an injury. Will check an x-ray determine additional follow-up. Instability of knee joint 08/25/2023 Assessment & Plan (08/25/2023 2:29 PM COMBAT CONTROL): This is a significant, separately identifiable problem that was evaluated and managed on the same day as the wellness exam Patient was picking up Halloween decorations. She was walking up the steps she bear weight and felt pain in the right knee and it gave way. She feels like the pain is is localized in the back of the knee. She is continued to have pain in the area especially in the back difficulty bearing weight. She has been using asleep like brace as well as her mom's walker. X-rays done at [facility] were negative. Has an appointment with Orthopedics but hoping to get MRI prior to that visit due to possible derangement of the internal working of the knee. Suspect meniscus verses PCL tear. Will place order for MRI right knee to be done at [facility]. Vitamin D deficiency 08/25/2023 Assessment & Plan (12/27/2023 1:07 AM CDT): Supplement Assessment & Plan (08/25/2023 2:29 PM COMBAT CONTROL): Supplement Annual physical exam 12/22/2022 Assessment & Plan (02/07/2025 9:06 AM CDT): Discussed age-appropriate screening tests. Discussed immunizations. Please keep your future appointments with PCP and/or other specialists. Maintain healthy weight with regular exercise and diet. Assessment & Plan (12/27/2023 1:08 AM CDT): Encouraged healthy lifestyle, good nutrition and exercise. Encouraged Calcium and Vitamin D and weight bearing exercise for bone health. Reviewed immunizations Reviewed age appropirate screenings. Assessment & Plan (12/22/2022 9:35 AM CDT): Encouraged healthy lifestyle, good nutrition and exercise. Encouraged Calcium and Vitamin D and weight bearing exercise for bone health. Reviewed immunizations Reviewed age appropirate screenings. Nondisplaced fracture of fif th right metatarsal bone with routine healing 09/15/2021 Assessment & Plan (09/15/2021 11:21 PM COMBAT CONTROL): Referral to orthopedics for this fracture. Continue in the heart so chew until she is able to be seen. Decreased hearing of both ears 07/01/2021 Assessment & Plan (07/01/2021 2:03 PM CDT): Appears to be secondary to cerumen as improved once canals were clear. Monitor. Tinnitus of right ear 06/05/2021 Assessment & Plan (07/01/2021 2:02 PM CDT): Will monitor to see if resolves with cerumen removal. Assessment & Plan (06/05/2021 11:00 AM CDT): This is a significant, separately identifiable problem that was evaluated and managed on the same day as the wellness exam May be secondary to cerumen impaction. Will have pt use DeBrox then return to the office to reasses. Menopause 06/05/2021 Assessment & Plan (12/27/2023 1:08 AM CDT): Check DEXA Assessment & Plan (06/05/2021 11:03 AM CDT): Recheck DXA Right groin pain 06/05/2021 Assessment & Plan (06/05/2021 11:02 AM CDT): This is a significant, separately identifiable problem that was evaluated and managed on the same day as the wellness exam Groin pain with rising from chair and getting off floor. Start with checking xray and determine if needs further evaluation Bilateral impacted cerumen 06/05/2021 Assessment & Plan (07/01/2021 2:01 PM CDT): Ears cleared of cerumen in the office. Hearing improved. Assessment & Plan (06/05/2021 10:59 AM CDT): This is a significant, separately identifiable problem that was evaluated and managed on the same day as the wellness exam Start DeBrox otc and return to the office in 2-3 weeks to have ears rechecked and washed out if needed. BMI 26.0-26.9,adult 04/06/2021 Assessment & Plan (02/07/2025 9:54 AM CDT): Weight/BMI is in healthy range. Continue healthy lifestyle to maintain. Assessment & Plan (04/06/2021 11:45 AM CDT): Weight/BMI is in healthy range. Continue healthy lifestyle to maintain. Chronic right shoulder pain 11/27/2020 Assessment & Plan (11/27/2020 9:20 PM COMBAT CONTROL): This is a significant, separately identifiable problem that was evaluated and managed on the same day as the wellness exam Per patient - following with Ortho Dr. Perez. He has encouraged PT for RC tear. She has been resistant but willing. Order provided. [facility]ence referral sent. Fatigue 11/27/2020 Assessment & Plan (08/25/2023 2:28 PM COMBAT CONTROL): Probably multifactorial. Check labs and followup to re-evaluate Assessment & Plan (12/22/2022 9:35 AM CDT): Probably multifactorial. Check labs and followup to re-evaluate Assessment & Plan (06/23/2022 6:44 PM CDT): Probably multifactorial. Check labs and followup to re-evaluate Assessment & Plan (04/08/2021 12:04 AM CDT): Probably multifactorial. Check labs and followup to re-evaluate Assessment & Plan (11/27/2020 9:20 PM COMBAT CONTROL): Probably multifactorial. Check labs and followup to re-evaluate LFT elevation 08/15/2020 Breast cancer screening by mammogram 05/31/2020 Assessment & Plan (12/27/2023 1:08 AM CDT): Mammogram order provided Assessment & Plan (08/25/2023 2:28 PM COMBAT CONTROL): Mammogram order provided Assessment & Plan (12/22/2022 9:34 AM CDT): Mammogram order provided Assessment & Plan (06/05/2021 11:02 AM CDT): Mammogram order provided Assessment & Plan (05/31/2020 9:19 AM CDT): Mammogram order provided Gastroesophageal reflux disease with esophagitis 02/10/2020 Assessment & Plan (02/07/2025 9:06 AM CDT): - Keep a food diary to identify triggers of acid reflux - Do not eat large meals - Avoid laying down at least 2 hours after eating - Avoid spicy, acidic and fatty foods - Stop drinking alcohol - Take your acid reflux medication 30 minutes prior to eating Assessment & Plan (12/27/2023 1:07 AM CDT): Continue PPI p.r.n. Assessment & Plan (12/22/2022 9:34 AM CDT): PPI p.r.n. Assessment & Plan (12/16/2021 10:24 AM CDT): Continue PPI Assessment & Plan (06/05/2021 11:00 AM CDT): Continue PPI Assessment & Plan (11/27/2020 9:16 PM COMBAT CONTROL): Continue PPI Assessment & Plan (05/31/2020 9:13 AM CDT): Was scoped. Doing great. Seasonal allergies 01/26/2020 Assessment & Plan (02/07/2025 1:03 PM CDT): Patient reports that her dizziness is associated with a pressure sensation in her head, especially in her maxillary sinuses. Has a history of allergic rhinitis. Explained to patient that if the inner ear mechanism is obstructed due to congestion, it may contribute to symptoms of dizziness. Recommended increasing her usage of Flonase as needed. Nasal corticosteroids (Flonase) work best when used daily; may take up to 2 weeks to reach full effect Use OTC antihistamines like Claritin or Fely Do not use Afrin for longer than 3 days for congestion relief Assessment & Plan (11/27/2020 9:19 PM COMBAT CONTROL): Continue flonase/antihistamine prn Assessment & Plan (05/31/2020 9:17 AM CDT): Continue current regimen Assessment & Plan (01/26/2020 9:54 PM CDT): Continue current regimen Dehydration 12/02/2019 Assessment & Plan (02/07/2025 1:20 PM CDT): This is a significant, separately identifiable problem that was evaluated and managed on the same day as the wellness exam She notes that she has trouble staying hydrated throughout the day. Her blood pressure has been lower on multiple occasions during visits with her doctors especially when presenting for her colonoscopy last week. Orthostatics in clinic today show mild drop in SBP when rising from sitting to standing. Could be a source of patient's dizziness. Encouraged patient to increase her daily fluid intake. 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 She continues to follow very closely with oncology q.6 months for very close monitoring of this cancer. Assessment & Plan (12/22/2022 9:34 AM CDT): Continue very close follow-up with Oncology. Continue six-month visits with Dr. Rodriguez and has regular imaging. 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 Continues to follow with ONC. Undergoing very close surveillance. Has followup/imaging at the end of the month. Assessment & Plan (09/15/2021 11:21 PM COMBAT CONTROL): Continue per Oncology. She is under close surveillance Assessment & Plan (04/08/2021 12:03 AM CDT): Continue per ONC Active surveillance Assessment & Plan (11/27/2020 9:16 PM COMBAT CONTROL): Continue per ONC Has imaging for close monitoring in december Assessment & Plan (09/17/2020 9:46 AM COMBAT CONTROL): Active treatment/surveillance with the oncologist. 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 Imaging today. Continue with close monitoring Assessment & Plan (01/26/2020 9:53 PM CDT): Continue per ONC BMI 27.0-27.9,adult 08/16/2019 Overview (08/16/2024): Weight/BMI is in healthy range. Continue healthy lifestyle to maintain. Assessment & Plan (08/29/2024 8:08 PM COMBAT CONTROL): Weight/BMI is in healthy range. Continue healthy lifestyle to maintain. Assessment & Plan (01/03/2024 3:50 PM CDT): Weight/BMI is in healthy range. Continue healthy lifestyle to maintain. Assessment & Plan (12/27/2023 1:08 AM CDT): Weight/BMI is in healthy range. Continue healthy lifestyle to maintain. Assessment & Plan (08/25/2023 2:27 PM COMBAT CONTROL): Weight/BMI is in healthy range. Continue healthy lifestyle to maintain. Assessment & Plan (05/31/2020 9:17 AM CDT): Weight/BMI is in healthy range. Continue healthy lifestyle to maintain. Assessment & Plan (08/16/2019 2:34 PM COMBAT CONTROL): Weight/BMI is in healthy range. Continue healthy lifestyle to maintain. Adenocarcinoma 07/30/2019 Cancer Staging:Clinical stage from 08/05/2019:Stage STEVIE(cT0, cN0, cM1a) - Unsigned Overview (07/30/2019): 07/2019 -- vaginal mass bx showed adenocarcinoma probable colon primary Assessment & Plan (02/07/2025 1:19 PM CDT): She continues to follow closely with oncology, Dr. Raphael, who she sees every 6 months. No new updates or changes in management. - Keep your appointments with oncology Assessment & Plan (12/27/2023 1:07 AM CDT): Patient with Craigmont metastatic adenocarcinoma colorectal cancer with a metastatic lesion in the vaginal introitus. She continues to follow very closely with oncology q.6 months for very close monitoring of this cancer. 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 Continue with Dr. Carver with very close surveillance Assessment & Plan (06/05/2021 11:05 AM CDT): Continue close observation with ONC Has imaging scheduled in June Assessment & Plan (04/08/2021 12:03 AM CDT): Continue per ONC Active surveillance Assessment & Plan (08/16/2019 10:49 PM COMBAT CONTROL): Still awaiting recommendations as vaginal mass showed adenocarcinoma of probable colonic origin but colonoscopy was essentially negative (adenoma polyp--->repeat 7 years). Continue to await recommendations from Ladonna Carver Osteopenia of lumbar spine 06/30/2019 Assessment & Plan (02/07/2025 1:15 PM CDT): Stable on weekly Fosamax and daily vitamin D and calcium supplements. Sent order for DXA to be done with her mammogram later this year. - Continue taking your bone medications as prescribed - Get you DXA scan with your mammogram in September Assessment & Plan (08/29/2024 8:08 PM COMBAT CONTROL): Patient with osteopenia of the lumbar spine. On Fosamax weekly. Continue calcium and vitamin-D. DEXA is due Assessment & Plan (12/27/2023 1:08 AM CDT): Continue Fosamax weekly with calcium and vitamin-D. Assessment & Plan (12/22/2022 9:34 AM CDT): Continue Fosamax weekly. Continue calcium vitamin-D Assessment & Plan (06/23/2022 6:41 PM CDT): Continue Fosamax weekly. Continue calcium vitamin-D and exercise. Last DEXA was done in 2018 Assessment & Plan (12/16/2021 10:24 AM CDT): Continu Fosamax calcium and vitamin-D. Assessment & Plan (09/15/2021 11:21 PM COMBAT CONTROL): Continue Fosamax weekly calcium and vitamin-D. Continue to monitor DEXA. Assessment & Plan (06/05/2021 11:05 AM CDT): Check DXA Assessment & Plan (04/08/2021 12:04 AM CDT): Continue Fosamax Assessment & Plan (11/27/2020 9:17 PM COMBAT CONTROL): Continue Fosamax, calcium and Vit D. DXA due in the next year. Assessment & Plan (05/31/2020 9:15 AM CDT): Restart fosamax. Recheck DXA in 2020 Assessment & Plan (06/30/2019 12:07 AM CDT): Discussed osteopenia at length including T-scores interpretation and possible treatment plans. Encouraged calcium vitamin-D and exercise to maintain bone density. Will restart the Fosamax a taking 1 tablet weekly on an empty stomach 1st thing in the morning and drinking a full glass of water nightly down for at least an hour. Will continue to monitor her DXA in 2 years for stability. She is to call if she has any further problems. Adnexal mass 05/15/2019 Assessment & Plan (06/30/2019 12:05 AM CDT): Will go ahead and reorder the ultrasound of the pelvis to recheck this at next so mass. Assessment & Plan (05/15/2019 3:13 PM CDT): This is a significant, separately identifiable problem that was evaluated and managed on the same day as the wellness exam Recheck US. If persistent, may consider referral to [employer] HSV (herpes simplex virus) infection 02/08/2019 Overview (02/08/2019): On her right buttock. Assessment & Plan (12/27/2023 1:06 AM CDT): Continue Valtrex p.r.n. Assessment & Plan (12/22/2022 9:34 AM CDT): Continue with Valtrex p.r.n. Assessment & Plan (05/31/2020 9:16 AM CDT): Continue valtrex prn Assessment & Plan (05/15/2019 3:13 PM CDT): Stable with valtrex Assessment & Plan (02/21/2019 5:15 PM CDT): No outbreaks with Valtrex. Controlled type 2 diabetes m gregorio with complication, without long-term current use of insulin 02/06/2019 Assessment & Plan (02/07/2025 1:08 PM CDT): Most recent A1c is 6.9. Doing well with the metformin 500 mg BID. Will continue to monitor A1c. - Will have to get your A1c checked every 3-6 months - Reasonable A1c of <7 - Check the bottoms of your feet - See your eye doctor yearly - Sweating, shaking, hunger and anxiety can indicate hypoglycemia - Weight management - Monitoring carb intake Assessment & Plan (08/29/2024 8:07 PM COMBAT CONTROL): Stressed importance of continued A1c control to minimize the intermediate frame tender effects of diabetes. Bring accuchecks to office when instructed to do so. Check A1c about every 3-6 months. Take medication as prescribed. Get annual eye exam. Encouraged PADMINI/Statin if able to tolerate. Encouraged weight control and encouraged diabetic diet and exercise. Due for labs. Continue metformin 500 b.i.d. Assessment & Plan (12/27/2023 1:07 AM CDT): Stressed importance of continued A1c control to minimize the correction effects of diabetes. Bring accuchecks to office when instructed to do so. Check A1c about every 3-6 months. Take medication as prescribed. Get annual eye exam. Encouraged PADMINI/Statin if able to tolerate. Encouraged weight control and encouraged diabetic diet and exercise. A1c is tightly controlled. Continue metformin 500 b.i.d. Assessment & Plan (12/22/2022 9:32 AM CDT): Stressed importance of continued A1c control to minimize the intermediate frame tender effects of diabetes. Bring accuchecks to office when instructed to do so. Check A1c about every 3-6 months. Take medication as prescribed. Get annual eye exam. Encouraged PADMINI/Statin if able to tolerate. Encouraged weight control and encouraged diabetic diet and exercise. Continue metformin b.i.d. Assessment & Plan (06/23/2022 6:39 PM CDT): Stressed importance of continued A1c control to minimize the intermediate frame tender effects of diabetes. Bring accuchecks to office when instructed to do so. Check A1c about every 3-6 months. Take medication as prescribed. Get annual eye exam. Encouraged PADMINI/Statin if able to tolerate. Encouraged weight control and encouraged diabetic diet and exercise. . Continue metformin 500 b.i.d. Assessment & Plan (12/16/2021 10:22 AM CDT): Stressed importance of continued A1c control to minimize the intermediate frame tender effects of diabetes. Bring accuchecks to office when instructed to do so. Check A1c about every 3-6 months. Take medication as prescribed. Get annual eye exam. Encouraged PADMINI/Statin if able to tolerate. Encouraged weight control and encouraged diabetic diet and exercise. Assessment & Plan (06/05/2021 10:58 AM CDT): Stressed importance of continued A1c control to minimize the correction effects of diabetes. Bring accuchecks to office when instructed to do so. Check A1c about every 3-6 months. Take medication as prescribed. Get annual eye exam. Encouraged PADMINI/Statin if able to tolerate. Encouraged weight control and encouraged diabetic diet and exercise. Continue metformin Assessment & Plan (04/08/2021 12:02 AM CDT): Stressed importance of continued A1c control to minimize the intermediate frame tender effects of diabetes. Bring accuchecks to office when instructed to do so. Check A1c about every 3-6 months. Take medication as prescribed. Get annual eye exam. Encouraged PADMINI/Statin if able to tolerate. Encouraged weight control and encouraged diabetic diet and exercise. Assessment & Plan (11/27/2020 9:17 PM COMBAT CONTROL): Stressed importance of continued A1c control to minimize the intermediate frame tender effects of diabetes. Bring accuchecks to office when instructed to do so. Check A1c about every 3-6 months. Take medication as prescribed. Get annual eye exam. Encouraged PADMINI/Statin if able to tolerate. Encouraged weight control and encouraged diabetic diet and exercise. Due for labs to determine control Assessment & Plan (05/31/2020 9:15 AM CDT): Stressed importance of continued A1c control to minimize the intermediate frame tender effects of diabetes. Bring accuchecks to office when instructed to do so. Check A1c about every 3-6 months. Take medication as prescribed. Get annual eye exam. Encouraged PADMINI/Statin if able to tolerate. Encouraged weight control and encouraged diabetic diet and exercise. Due for labs Assessment & Plan (01/26/2020 9:53 PM CDT): Stressed importance of continued A1c control to minimize the correction effects of diabetes. Bring accuchecks to office when instructed to do so. Check A1c about every 3-6 months. Take medication as prescribed. Get annual eye exam. Encouraged PADMINI/Statin if able to tolerate. Encouraged weight control and encouraged diabetic diet and exercise. Continue metformin Assessment & Plan (06/30/2019 12:08 AM CDT): Stressed importance of continued A1c control to minimize the intermediate frame tender effects of diabetes. Bring accuchecks to office when instructed to do so. Check A1c about every 3-6 months. Take medication as prescribed. Get annual eye exam. Encouraged PADMINI/Statin if able to tolerate. Encouraged weight control and encouraged diabetic diet and exercise. Check labs Assessment & Plan (05/15/2019 3:12 PM CDT): Stressed importance of continued A1c control to minimize the correction effects of diabetes. Bring accuchecks to office when instructed to do so. Check A1c about every 3-6 months. Take medication as prescribed. Get annual eye exam. Encouraged PADMINI/Statin if able to tolerate. Encouraged weight control and encouraged diabetic diet and exercise. Assessment & Plan (02/21/2019 5:15 PM CDT): Stressed importance of continued A1c control to minimize the intermediate frame tender effects of diabetes. Bring accuchecks to office when instructed to do so. Check A1c about every 3-6 months. Take medication as prescribed. Get annual eye exam. Encouraged PADMINI/Statin if able to tolerate. Encouraged weight control and encouraged diabetic diet and exercise. Type 2 diabetes mellitus with hyperlipidemia 01/2019 Assessment & Plan (02/07/2025 1:12 PM CDT): Recent cholesterol panel is WNL. Patient is tolerating the Crestor 10 well. Will continue at same dose and monitor. Follow a Mediterranean Diet Eat a diet low in saturated fat, trans fats and cholesterol Participate in 30-60 minutes of moderate exercise 5-6 times a week Limit your consumption of alcohol Assessment & Plan (08/29/2024 8:07 PM COMBAT CONTROL): Encouraged patient to follow low fat/low chol diet like the Mediterranean diet. Increase good fats in the diet. Increase exercise. Monitor labs as needed. Continue Crestor Assessment & Plan (12/27/2023 1:06 AM CDT): Stressed importance of continued A1c control to minimize the correction effects of diabetes. Bring accuchecks to office when instructed to do so. Check A1c about every 3-6 months. Take medication as prescribed. Get annual eye exam. Encouraged PADMINI/Statin if able to tolerate. Encouraged weight control and encouraged diabetic diet and exercise. Encouraged patient to follow low fat/low chol diet like the Mediterranean diet. Increase good fats in the diet. Increase exercise. Monitor labs as needed. Continue Crestor 10 Assessment & Plan (08/25/2023 2:26 PM COMBAT CONTROL): Stressed importance of continued A1c control to minimize the correction effects of diabetes. Bring accuchecks to office when instructed to do so. Check A1c about every 3-6 months. Take medication as prescribed. Get annual eye exam. Encouraged PADMINI/Statin if able to tolerate. Encouraged weight control and encouraged diabetic diet and exercise. Encouraged patient to follow low fat/low chol diet like the Mediterranean diet. Increase good fats in the diet. Increase exercise. Continue metformin 500 b.i.d. and Crestor 10 Assessment & Plan (12/22/2022 9:32 AM CDT): Stressed importance of continued A1c control to minimize the intermediate frame tender effects of diabetes. Bring accuchecks to office when instructed to do so. Check A1c about every 3-6 months. Take medication as prescribed. Get annual eye exam. Encouraged PADMINI/Statin if able to tolerate. Encouraged weight control and encouraged diabetic diet and exercise. Encouraged patient to follow low fat/low chol diet like the Mediterranean diet. Increase good fats in the diet. Increase exercise. Monitor labs as needed. Continue Crestor Assessment & Plan (06/23/2022 6:39 PM CDT): Encouraged patient to follow low fat/low chol diet like the Mediterranean diet. Increase good fats in the diet. Increase exercise. Monitor labs as needed. Continue Crestor 5 Assessment & Plan (12/16/2021 10:22 AM CDT): Encouraged patient to follow low fat/low chol diet like the Mediterranean diet. Increase good fats in the diet. Increase exercise. Monitor labs as needed. Continue Crestor Assessment & Plan (06/05/2021 10:58 AM CDT): Encouraged patient to follow fat/low chol diet like the Mediterranean diet. Increase good fats in the diet. Increase exercise. Monitor labs as needed. Continue Crestor Assessment & Plan (04/08/2021 12:02 AM CDT): Encouraged patient to follow fat/low chol diet like the Mediterranean diet. Increase good fats in the diet. Increase exercise. Monitor labs as needed. Continue statin Assessment & Plan (11/27/2020 9:18 PM COMBAT CONTROL): Encouraged patient to follow fat/low chol diet like the Mediterranean diet. Increase good fats in the diet. Increase exercise. Monitor labs as needed. Assessment & Plan (05/31/2020 9:16 AM CDT): Encouraged patient to continue low fat/low chol diet. Continue exercise. Increase good fats in the diet. Monitor labs as needed. Continue statin Hypertension associated with diabetes 02/06/2019 Assessment & Plan (02/07/2025 1:14 PM CDT): Blood pressure today is stable. Has noted a couple of low readings in previous appointments. Likely from mild orthostatic hypotension. Encouraged patient to increase her fluid intake. Tolerating the lisinopril well. Will continue. - Take blood pressure medication as prescribed - Monitor your blood pressure using a cuff at home (top number <120/130, bottom number <80/90) - Participate in 30-60 minutes of moderate exercise 5-6 days a week - Eat less salt by avoiding processed foods and canned foods. Buy fresh or fresh-frozen vegetables. (<1500 mg of sodium a day) - Get plenty of vegetables, fiber, nuts, beans, low-fat foods, fish in your diet - Limit alcohol consumption Assessment & Plan (08/29/2024 8:07 PM COMBAT CONTROL): Bp is stable/in acceptable range for any co-morbidities. Encouraged to limit sodium intake and exercise for weight control. Stressed importance of continued A1c control to minimize the intermediate frame tender effects of diabetes. Bring accuchecks to office when instructed to do so. Check A1c about every 3-6 months. Take medication as prescribed. Get annual eye exam. Encouraged PADMINI/Statin if able to tolerate. Encouraged weight control and encouraged diabetic diet and exercise. Due for A1c and labs. Continue metformin 500 b.i.d. Assessment & Plan (12/27/2023 1:06 AM CDT): Bp is stable/in acceptable range for any co-morbidities. Encouraged to limit sodium intake and exercise for weight control. Stressed importance of continued A1c control to minimize the correction effects of diabetes. Bring accuchecks to office when instructed to do so. Check A1c about every 3-6 months. Take medication as prescribed. Get annual eye exam. Encouraged PADMINI/Statin if able to tolerate. Encouraged weight control and encouraged diabetic diet and exercise. Continue lisinopril Assessment & Plan (08/25/2023 2:26 PM COMBAT CONTROL): Bp is stable/in acceptable range for any co-morbidities. Encouraged to limit sodium intake and exercise for weight control. Continue lisinopril Assessment & Plan (12/22/2022 9:32 AM CDT): Bp is stable/in acceptable range for any co-morbidities. Encouraged to limit sodium intake and exercise for weight control. Continue lisinopril Assessment & Plan (06/23/2022 6:39 PM CDT): Bp is stable/in acceptable range for any co-morbidities. Encouraged to limit sodium intake and exercise for weight control. Continue lisinopril Assessment & Plan (12/16/2021 10:22 AM CDT): Bp is stable/in acceptable range for any co-morbidities. Encouraged to limit sodium intake and exercise for weight control. Continue lisinopril Assessment & Plan (09/15/2021 11:19 PM COMBAT CONTROL): Bp is stable/in acceptable range for any co-morbidities. Encouraged to limit sodium intake and exercise for weight control. Continue with lisinopril Stressed importance of continued A1c control to minimize the correction effects of diabetes. Bring accuchecks to office when instructed to do so. Check A1c about every 3-6 months. Take medication as prescribed. Get annual eye exam. Encouraged PADMINI/Statin if able to tolerate. Encouraged weight control and encouraged diabetic diet and exercise. A1c is stable and at goal. Continue with metformin Assessment & Plan (06/05/2021 10:52 AM CDT): Bp is stable/in acceptable range for any co-morbidities. Encouraged to limit sodium intake and exercise for weight control. Continue lisinopril Assessment & Plan (04/08/2021 12:00 AM CDT): Bp is stable/in acceptable range for any co-morbidities. Encouraged to limit sodium intake and exercise for weight control. Continue lisinopril Assessment & Plan (11/27/2020 9:16 PM COMBAT CONTROL): Bp is stable/in acceptable range for any co-morbidities. Encouraged to limit sodium intake and exercise for weight control. Continue lisinopril Assessment & Plan (05/31/2020 9:13 AM CDT): Bp is stable/in acceptable range for any co-morbidities. Encouraged to limit sodium intake and exercise for weight control. Low normal -- no sxs. monitor Assessment & Plan (01/26/2020 9:52 PM CDT): Bp is stable/in acceptable range for any co-morbidities. Encouraged to limit sodium intake and exercise for weight control. Assessment & Plan (06/30/2019 12:10 AM CDT): Bp is stable/in acceptable range for any co-morbidities. Encouraged to limit sodium intake and exercise for weight control. Assessment & Plan (05/15/2019 3:11 PM CDT): Bp is stable/in acceptable range for any co-morbidities. Encouraged to limit sodium intake and exercise for weight control. Assessment & Plan (02/21/2019 5:29 PM CDT): Bp is stable/in acceptable range for any co-morbidities. Encouraged to limit sodium intake and exercise for weight control. Tolerating the Lisinopril. Microalbumin done in office today Neuropathy 02/06/2019 Assessment & Plan (12/27/2023 1:06 AM CDT): Patient with persistent neuropathy. Could be secondary to diabetes and or chemotherapy for her cancer. Continue with the gabapentin Assessment & Plan (08/25/2023 2:27 PM COMBAT CONTROL): Persistent neuropathy that really intensified when on chemo. Currently on gabapentin 800 t.i.d. and Cymbalta 60 b.i.d.. Started B12 and also thinks it may be helping Assessment & Plan (12/22/2022 9:33 AM CDT): Continue gabapentin 800 t.i.d. and Cymbalta. Patient has just started B12 and thinks it is helping. Continue to monitor Assessment & Plan (06/23/2022 6:41 PM CDT): Patient has neuropathy. 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 She continues with gabapentin 800 mg t.i.d. in the Cymbalta Assessment & Plan (12/16/2021 10:23 AM CDT): Continue gabapentin. She is at 800 t.i.d. with Cymbalta. She is still having discomfort in the feet but it is a little better than it was before is probably secondary to getting further out from the cancer treatments. Will continue to monitor. Assessment & Plan (09/15/2021 11:20 PM COMBAT CONTROL): Using gabapentin 800 mg t.i.d. and Cymbalta 60 mg b.i.d.. She is following with neurology for assistance. Assessment & Plan (06/05/2021 11:06 AM CDT): This is a significant, separately identifiable problem that was evaluated and managed on the same day as the wellness exam Increase Cymbalta to 30mg AM and 60mg PM. Will see in increased dose helps with the neuropathy. Assessment & Plan (04/08/2021 12:04 AM CDT): Stressed importance of continued A1c control to minimize the correction effects of diabetes. Bring accuchecks to office when instructed to do so. Check A1c about every 3-6 months. Take medication as prescribed. Get annual eye exam. Encouraged PADMINI/Statin if able to tolerate. Encouraged weight control and encouraged diabetic diet and exercise. Continue gabapentin Assessment & Plan (11/27/2020 9:15 PM COMBAT CONTROL): Stressed importance of continued A1c control to minimize the intermediate frame tender effects of diabetes. Bring accuchecks to office when instructed to do so. Check A1c about every 3-6 months. Take medication as prescribed. Get annual eye exam. Encouraged PADMINI/Statin if able to tolerate. Encouraged weight control and encouraged diabetic diet and exercise. Check labs to determine control Continue gabapentin 800mg tid Assessment & Plan (05/31/2020 9:12 AM CDT): Check dm control Check b12 levels as may be contributing as well as recent chemo Continue cymbalta and neurontin. Await labs and if b12 in range will increase gabapentin to 800tid Assessment & Plan (01/26/2020 9:52 PM CDT): Continue the Gabapentin and Cymbalta Assessment & Plan (08/16/2019 10:49 PM COMBAT CONTROL): Stable with gabapentin 600mg tid. Will send new Rx for 600mg tabs and d/c 300mg tabs Assessment & Plan (06/30/2019 12:09 AM CDT): Patient continues to feel increased pain and numbness in her feet. Have increase the Neurontin to 300 3 times a day. Advised she could increase it to 2 tablets in the morning and 2 tablets at bedtime and see if she is able to get improvement with her symptoms but not have such sedation. Will continue to monitor closely. Check labs to look for any other deficiencies. Assessment & Plan (05/15/2019 3:11 PM CDT): Continue the cymbalta and gabapentin Control the DM tightly Assessment & Plan (02/21/2019 5:32 PM CDT): Neuropathy noted on exam today. Reviewed importance of good feet care, wear shoes all the time and check feet for wounds/sores and address immediately. Check B12 level. Continue gabapentin and Cymbalta. Stressed importance of continued A1c control to minimize the intermediate frame tender effects of diabetes. Bring accuchecks to office when instructed to do so. Check A1c about every 3-6 months. Take medication as prescribed. Get annual eye exam. Encouraged PADMINI/Statin if able to tolerate. Encouraged weight control and encouraged diabetic diet and exercise. Moderate episode of recurrent major depressive d isorder 02/06/2019 Assessment & Plan (02/07/2025 1:16 PM CDT): Mood is stable with the Cymbalta. Will continue with this dose and monitor. Assessment & Plan (08/29/2024 8:08 PM COMBAT CONTROL): Depression symptoms are stable with Cymbalta Assessment & Plan (12/27/2023 1:06 AM CDT): Stable with Cymbalta Assessment & Plan (12/22/2022 9:33 AM CDT): Continue Cymbalta Assessment & Plan (06/23/2022 6:41 PM CDT): Continue Cymbalta Assessment & Plan (09/15/2021 11:20 PM COMBAT CONTROL): Continue the Cymbalta Assessment & Plan (06/05/2021 11:05 AM CDT): Continue Cymbalta. Assessment & Plan (04/08/2021 12:03 AM CDT): Stable with cymbalta Assessment & Plan (11/27/2020 9:18 PM COMBAT CONTROL): Continue cymbalta Assessment & Plan (05/31/2020 9:16 AM CDT): Stable with cymbalta Assessment & Plan (01/26/2020 9:54 PM CDT): Continue cymbalta Assessment & Plan (06/30/2019 12:08 AM CDT): Continue the Cymbalta. Assessment & Plan (05/15/2019 3:14 PM CDT): Stable with the Cymbalta. Continue to monitor. Assessment & Plan (02/21/2019 5:16 PM CDT): Stable with the Cymbalta. Acquired hypothyroidism 02/06/2019 Assessment & Plan (02/07/2025 1:16 PM CDT): TSH level stable. Patient tolerating levothyroxine well. Will continue medication at that dose and monitor - Take your levothyroxine as prescribed Assessment & Plan (08/29/2024 8:08 PM COMBAT CONTROL): Continue levothyroxine. Monitor labs. Assessment & Plan (12/27/2023 1:06 AM CDT): Continue levothyroxine. Monitor labs. Assessment & Plan (08/25/2023 2:27 PM COMBAT CONTROL): Continue levothyroxine. Monitor labs. Assessment & Plan (12/22/2022 9:33 AM CDT): Continue levothyroxine. Monitor labs. Assessment & Plan (06/23/2022 6:41 PM CDT): Continue levothyroxine. Monitor labs. Assessment & Plan (12/16/2021 10:23 AM CDT): Continue Cymbalta Assessment & Plan (09/15/2021 11:20 PM COMBAT CONTROL): Continue levothyroxine Assessment & Plan (06/05/2021 10:52 AM CDT): Continue levothyroxine. Monitor labs. Assessment & Plan (04/08/2021 12:02 AM CDT): Continue levothyroxine. Monitor labs. Assessment & Plan (11/27/2020 9:17 PM COMBAT CONTROL): Continue levothyroxine Assessment & Plan (05/31/2020 9:15 AM CDT): Check labs Continue levothyroxine Assessment & Plan (01/26/2020 9:53 PM CDT): Check labs. Continue levothyroxine Assessment & Plan (06/30/2019 12:07 AM CDT): Check labs Assessment & Plan (05/15/2019 3:12 PM CDT): Stable. Continue levothyroxine Assessment & Plan (02/21/2019 5:15 PM CDT): Check labs. Continue the levothyroxine Resolved Problems Problem Noted Date Diagnosed Date Resolved Date Positive depression screening 12/30/2023 01/03/2024 Need for influenza vaccination 08/25/2023 12/27/2023 Assessment & Plan (08/25/2023 2:29 PM COMBAT CONTROL): Flu vaccine updated in the office today Medicare annual wellness visit, subsequent 06/10/2023 12/27/2023 Assessment & Plan (08/25/2023 2:25 PM COMBAT CONTROL): Encouraged healthy lifestyle, good nutrition and exercise. Encouraged Calcium and Vitamin D and weight bearing exercise for bone health. Reviewed immunizations. Reviewed age appropirate screenings. Medicare Wellness Documentation is completed within the chart BMI 28.0-28.9,adult 12/10/2022 12/27/19 24 Assessment & Plan (12/10/2022 10:07 AM COMBAT CONTROL): Weight/BMI is in healthy range. Continue healthy lifestyle. BMI 28.0-28.9,adult 06/22/2022 12/11/19 Assessment & Plan (06/23/2022 6:45 PM CDT): Weight/BMI is in healthy range. Continue healthy lifestyle to maintain. Neuropathy due to type 2 diabetes mellitus 12/16/2021 12/16/2021 Hyperlipidemia 12/16/2021 12/16/2021 Flu vaccine need 09/15/2021 06/22/2022 Assessment & Plan (09/15/2021 11:21 PM COMBAT CONTROL): Flu vaccine updated in office BMI 29.0-29.9,adult 09/05/2021 06/22/20 22 Assessment & Plan (12/16/2021 10:24 AM CDT): Weight/BMI is in healthy range. Continue healthy lifestyle to maintain. Assessment & Plan (09/05/2021 1:24 PM COMBAT CONTROL): Weight/BMI is in healthy range. Continue healthy lifestyle to maintain. BMI 27.0-27.9,adult 06/20/2021 09/05/20 Assessment & Plan (06/20/2021 11:19 AM CDT): Obesity is unchanged. Discussed the patient's BMI. The BMI is above average. BMI management plan is completed. BMI Follow-up includes: nutrition counseling, exercise counseling and education provided. BMI 26.0-26.9,adult 06/05/2021 06/20/20 Assessment & Plan (06/05/2021 9:38 AM CDT): Weight/BMI is in healthy range. Continue healthy lifestyle to maintain. Medicare annual wellness visit, subsequent 06/05/2021 12/09/2022 Assessment & Plan (06/23/2022 6:45 PM CDT): Encouraged healthy lifestyle, good nutrition and exercise. Encouraged Calcium and Vitamin D and weight bearing exercise for bone health. Reviewed immunizations. Reviewed age appropirate screenings. Medicare Wellness Documentation is completed within the chart Assessment & Plan (06/05/2021 11:06 AM CDT): Encouraged healthy lifestyle, good nutrition and exercise. Encouraged Calcium and Vitamin D and weight bearing exercise for bone health. Reviewed immunizations. Reviewed age appropirate screenings. Medicare Wellness Documentation is completed within the chart B12 deficiency 04/08/2021 06/05/2021 Assessment & Plan (04/08/2021 12:05 AM CDT): Check labs Claudication ([facility] 04/07/202112/09 Assessment & Plan (04/08/2021 12:00 AM CDT): Leg pain seem consistent with claudication. Recommend GERA study. Prefers at [place] BMI 27.0-27.9,adult 11/27/2020 04/06/20 Assessment & Plan (11/27/2020 8:38 AM COMBAT CONTROL): Weight/BMI is in healthy range. Continue healthy lifestyle to maintain. Hyperlipidemia 11/27/2020 04/07/2021 Annual physical exam 11/24/2020 022 Assessment & Plan (12/16/2021 10:24 AM CDT): Encouraged healthy lifestyle, good nutrition and exercise. Encouraged Calcium and Vitamin D and weight bearing exercise for bone health. Reviewed immunizations Reviewed age appropirate screenings. Assessment & Plan (11/27/2020 9:18 PM COMBAT CONTROL): Encouraged healthy lifestyle, good nutrition and exercise. Encouraged Calcium and Vitamin D and weight bearing exercise for bone health. Reviewed immunizations Reviewed age appropirate screenings. Nasal congestion 09/11/2020 02/07/2025 Assessment & Plan (09/17/2020 9:47 AM COMBAT CONTROL): Discussed symptoms with patient. With COVID in the community it would not be wrong to test but her symptoms seem most consistent with a cold/allergies at this point. Recommend [id number] treatment and supportive therapy. If she starts running fever chills sweats notes change in her taste or smell, starts noticing a cough or a progression in symptoms she is to call and we will set her up for testing. She is in agreement with this plan. Assessment & Plan (09/11/2020 2:09 PM COMBAT CONTROL): Will send patient to [place] for Covid-19 testing. The patient was advised to quarantine at least 10 days from symptom onset, but this determination will depend on result of testing. They were advised to contact us in the next 72h if they have not heard results of testing. They were advised to report to the ER if worsening. Fever 09/11/2020 11/27/2020 Assessment & Plan (09/11/2020 2:10 PM COMBAT CONTROL): Will send patient to [place] for Covid-19 testing. The patient was advised to quarantine at least 10 days from symptom onset, but this determination will depend on result of testing. They were advised to contact us in the next 72h if they have not heard results of testing. They were advised to report to the ER if worsening. Flu vaccine need 07/17/2020 06/05/2021 Medicare annual wellness visit, subsequent 05/30/2020 11/24/2020 Assessment & Plan (05/31/2020 9:18 AM CDT): Encouraged healthy lifestyle, good nutrition and exercise. Encouraged Calcium and Vitamin D and weight bearing exercise for bone health. Reviewed immunizations. Reviewed age appropirate screenings. Medicare Wellness Documentation is completed within the chart Skin lesion 05/11/2020 06/05/2021 Assessment & Plan (04/08/2021 12:04 AM CDT): Continue per [employer] Hyperlipidemia 01/26/2020 05/31/2020 Assessment & Plan (01/26/2020 9:54 PM CDT): Encouraged patient to continue low fat/low chol diet. Continue exercise. Increase good fats in the diet. Monitor labs as needed. Screen for colon cancer 07/27/201908/06 Overview (07/27/2019): Added automatically from request for surgery [id number] Other fatigue 06/30/2019 05/31/2020 BMI 28.0-28.9,adult 02/08/2019 08/16/20 Assessment & Plan (06/29/2019 4:00 PM CDT): Weight/BMI is in healthy range. Continue healthy lifestyle to maintain. Assessment & Plan (05/10/2019 11:11 AM CDT): Weight/BMI is in healthy range. Continue healthy lifestyle to maintain. Assessment & Plan (02/08/2019 6:13 PM CDT): Weight/BMI is in healthy range. Continue healthy lifestyle to maintain. Dysuria 01/04/2019 05/31/2020 Assessment & Plan (02/21/2019 5:06 PM CDT): Followup with Dr. Kidd as planned. She will call back to reschedule for the hematuria/dysuria. 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); Type 2 diabetes mellitus with hyperlipidemia (HCC); Hypertension associated with diabetes (HCC); Osteopenia of lumbar spine; Acquired hypothyroidism; Moderate episode of recurrent major depressive disorder (HCC); Menopause; BMI 26.0-26.9,adult 02/05/2025 Results Follow-Up [address] [place] [phone] Monica Harvey PA Comprehensive metabolic panel, Lipid panel, TSH, Additional followed-up results: 3 02/03/2025 Results Follow-Up [facility] at [address] [phone] Yordy Melgar MD Surgical pathology 02/02/2025 Nurse Triage [address] [place] [phone] Jeny Salas RN 02/01/2025 10:49 AM CDT Anesthesia Event [facility] [address] [place] [phone] Yoni Gaona MD 02/01/2025 10:00 AM CDT - 02/01/2025 10:30 AM CDT Surgery [facility] [address] [place] [phone] Yordy Melgar MD COLON REMOVAL SNARE 02/01/2025 8:52 AM CDT - 02/01/2025 12:13 PM CDT Hospital Encounter [facility] [address] [place] [phone] Yordy Melgar MD Screening for colon cancer; Family history of colon cancer Discharge Disposition: Discharge to home or self care 01/24/2025 Orders Only [facility] [address] [place] [phone] Monica Harvey PA Hypertension associated with diabetes (HCC) (Primary Dx); Acquired hypothyroidism; Controlled type 2 diabetes mellitus with complication, without long-term current use of insulin (HCC); Vitamin D deficiency; Type 2 diabetes mellitus with hyperlipidemia (HCC) 01/18/2025 10:45 AM CDT Office Visit 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) Discharge Disposition: Discharge to home or self care 01/12/2025 7:58 AM CDT - 01/12/2025 11:59 PM CDT Hospital Encounter [facility] [address] [place] [phone] 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 at [address] [place] [address] Yordy Melgar MD Screening for colon cancer (Primary Dx) 12/31/2024 Telephone [facility] [address] [place] [address] Monica Harvey PA Referral Request 12/29/[address] [facility] [address] [place] [address] Frances Dumont RN 12/17/2024 Telephone [facility] [address] [place] [address] Monica Harvey PA Referral Request from Last 3 Months Immunizations Immunization Administration Dates Next Due Influenza, Quadrivalent, Hig h Dose, Preservative Free, Intrr 08/13/2023,07/31/2022,09/05/2021,07/17 Influenza, Trivalent, High D ose, Split, Preservative Free, Intramuscular 08/16/2024,07/21/2019,08/10/2018 Influenza, Trivalent, IM (MDV) 10/05/2012 Pfizer SARS-CoV-2 Monovalent Vaccination (12+ Yrs) PURPLE 12/22/2020,12/01/2020 Pneumococcal Conjugate PCV 13 08/10/2018 Pneumococcal Polysaccharide PPV23 09/14/2019 Tdap 11/12/2010 ZOSTER LIVE 10/05/2012 Surgical History Surgery Date Site/Laterality Comments PARATHYROIDECTOMY HYSTERECTOMY 10/06/1981 - 10/05/1982 BREAST LUMPECTOMY 10/06/2000 - 10/05/2001 THYROID SURGERY 10/06/2001 - 10/05/2002 CHOLECYSTECTOMY PORT PLACEMENT CHEST >5 YEARS 09/08/2019 N/A US ABDOMEN COMPLETE W LIVER DOPPLER (C) PORT REMOVAL 01/10/2021 N/A FLUORO GUIDED ASPIRATION OR INJECTION LARGE JOINT RIGHT 07/03/2021 Right FLUORO GUIDED INJECTION HIP RIGHT 07/30/2021 Right SHOULDER SURGERY 01/05/2024 - 02/03/2024 Left KNEE SURGERY 06/06/2024 - 07/05/2024 Left Medical History Medical History Date Comments Hyperlipidemia Hypertension Type 2 diabetes mellitus (HCC) Hypothyroidism Dysphagia Adenocarcinoma (HCC) 07/30/2019 Colon cancer (HCC) 07/2019 colon cancer in vaginal area per pt Neuropathy Fatigue LFT elevation Osteopenia of lumbar spine Family History Medical History Relation Name Comments Hypertension Father Alzheimer's disease Mother Arthritis Mother Diabetes Mother Hyperlipidemia Mother Colon cancer Other grandfather Breast cancer Neg Hx Ovarian cancer Neg Hx Uterine cancer Neg Hx Relation Name Status Comments Father Mother Other grandfather Alive Social History Tobacco Use Types Packs/Day Years Used Date Smoking Tobacco: Never Smokeless Tobacco: Never Tobacco Cessation:Counseling Given: No Alcohol Use Standard Drinks/Week Comments Never 0 (1 standard drink = 0.6 oz pur e alcohol) AUDIT-C Answer Date Recorded Q1: How often do you have a drink containing alcohol? Never 02/07/2025 Q2: How many drinks containi ng alcohol do you have on a typical day when you are drinking? Patient does not drink Q3: How often do you have si x or more drinks on one occasion? Never 02/07/2025 PHQ-2 Answer Date Recorded PHQ-2 Total Score (If total score is 3 or more points, staff should administer the PHQ-9) 0 02/07/2025 PHQ-9 Answer Date Recorded PHQ-9 Total Score 6 12/30/2023 Personal Safety Answer Date Recorded Have you ever been in or are you currently in a harmful physical or emotional relationship or is someone making you feel afraid or unsafe? Denies 02/01/2025 Comments No Sex and Gender Information Value Date Recorded Sex Assigned at Not on file Legal Sex Female 11:59 PM COMBAT CONTROL Gender Identity Not on file Sexual Orientation Not on file Obstetrics History Para Term AB IAB SAB Ectopic Multiple Livin g Live Births 2 2 2 2 2 Date Outcome GA Total Labor Labor/2nd/3rd Weight Sex Type Anes PTL Rere A1 A5 Name Clin Term Term Comments 09/25/29 Last Filed Vital Signs Vital Sign Reading Time Taken Comments Blood Pressure 110/70 02/07/2025 10:27 AM CDT Pulse 82 02/07/2025 9:53 AM CDT Temperature 36.7 C (98 F) 02/07/2025 9:53 AM CDT Respiratory Rate 16 02/01/2025 11:55 AM CDT Oxygen Saturation 97% 02/07/2025 9:53 AM CDT Inhaled Oxygen Concentration - - Weight 64 kg (141 lb) 02/07/2025 9:53 AM CDT Height 152.4 cm (5') 02/07/2025 9:53 AM CDT Body Mass Index 27.54 02/07/2025 9:53 AM CDT Plan of Treatment Health Maintenance Due Date Last Done Comments Hepatitis B Screening 02/19/1970 Zoster Vaccine (1 of 2) 11/30/2012 10/05/2012 DTaP/Tdap/Td Vaccine (2 - Td or Tdap) 11/12/2020 11/12/2010 Covid-19 Vaccine (3 - Pfizer risk series) 01/19/2021 12/22/2020, 12/01/2020 Foot Exam 05/31/2021 05/31/2020, 02/08/2019 Osteoporosis Screening-Bone Density Scan 01/29/2024 01/28/2022, 05/01/2019 Dilated Eye Exam 03/19/2025 03/19/2024, , 11/23/2020 Hemoglobin A1C 08/07/2025 02/04/2025, 08/07, 08/13/2023, Additional history exists Breast Cancer Screening-Mammogram 09/09/2025 09/09/2024, 04/16/2023, 01/28/2022, Additional history exists Albumin Creatinine Ratio, Urine 02/04/2026 02/04/2025, 08/30/2024, 12/19/2022, Additional history exists Lipid Panel 02/04/2026 02/04/2025, 08/07, 12/19/2022, Additional history exists eGFR 02/04/2026 02/04/2025, 01/04, 08/30/2024, Additional history exists Depression Screening 02/07/2026 02/07/2025, 08/16/2024, 12/30/2023, Additional history exists Fall Risk Assessment 02/07/2026 02/07/2025, 02/01/2025, 08/16/2024, Additional history exists Well Visit 65+ 02/07/2026 02/07/2025, 08/06, 12/15/2023, Additional history exists Colon Cancer Screening-Colonoscopy 02/02/2032 02/01/2025, 08/05/2019 Pneumococcal vaccine 65+ Completed 09/14/2019, 1102/2018 Hepatitis C Screening Completed 05/10/2020 Influenza Vaccine Completed 08/16/2024, , 07/31/2022, Additional history exists Colon Cancer Screening-CT Colonography Discontinued 02/01/2025, 08/05/2019 Colon Cancer Screening-DNA Stool Discontinued 02/02/20, 08/05/2019 Colon Cancer Screening-FIT Discontinued 02/01/2025, Colon Cancer Screening-Sigmoidoscopy Discontinued 02/01/2025, 08/05/2019 Medical Devices Implanted Type Area [employer] Consultant Device Identifier Shelf Expiration Date Model / Serial / Lot Port Chest Wall Explanted Type Area [employer] Consultant Device Identifier Shelf Expiration Date Model / Serial / Lot [employer] [id number] Xcela 8fr 1.6mm 1 Lumen Power Injectable Attach Catheter Fill - [id number] Implanted:Qty: 1 on 09/08/2019 at [facility] Explanted:Qty: 1 on 01/10/2021 [employer] 04/12/2024 [id number] / / [id number] Description:IR port removal on 01/10/21 Procedures Procedure Name Priority Date/Time Associated Diagnosis Comments ECG 12-LEAD Routine 02/07/2025 Dizziness VITAMIN D 25 HYDROXY Routine 02/04/2025 9:03 AM CDT Vitamin D deficiency ALBUMIN CREATININE RATIO, URINE Routine 02/04/2025 9:03 AM CDT Type 2 diabetes mellitus with hyperlipidemia (HCC) HEMOGLOBIN A1C Routine 02/04/2025 9:03 AM CDT Type 2 diabetes mellitus with hyperlipidemia (HCC) TSH Routine 02/04/2025 9:03 AM CDT Acquired hypothyroidism LIPID PANEL Routine 02/04/2025 9:03 AM CDT Type 2 diabetes mellitus with hyperlipidemia (HCC) COMPREHENSIVE METABOLIC PANEL Routine 02/04/2025 9:03 AM CDT Hypertension associated with diabetes (HCC) Type 2 diabetes mellitus with hyperlipidemia (HCC) POCT GLUCOSE DEVICE Routine 02/01/2025 11:33 AM CDT SURGICAL PATHOLOGY Routine 02/01/2025 10:59 AM CDT Screening for colon cancer Family history of colon cancer ENDO ADD ON COLON BIOPSY 02/01/2025 10:49 AM CDT Screening for colon cancer Family history of colon cancer COLON REMOVAL SNARE 02/01/2025 10:49 AM CDT Screening for colon cancer Family history of colon cancer COLONOSCOPY 02/01/2025 10:46 AM CDT POCT GLUCOSE DEVICE Routine 02/01/2025 9 :18 AM CDT EGFR Routine 01/18/2025 10:03 AM CDT 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) DIFFERENTIAL AUTO Routine 01/18/2025 10:03 AM CDT 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) CBC WITH AUTO DIFFERENTIAL Routine 01/18/2025 10:03 AM CDT 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) CEA Routine 01/18/2025 10:03 AM CDT 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) Other abnormal tumor markers COMPREHENSIVE METABOLIC PANEL Routine 01/18/2025 10:03 AM CDT 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) IRON PROFILE W/ IBC Routine 01/18/2025 10:03 AM CDT 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) FERRITIN Routine 01/18/2025 10:03 AM CDT 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) MRI PELVIS W WO CONTRAST Schedule Routine, Read Routine (OP Routine) 01/12/2025 10:55 AM CDT 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) CT ABDOMEN W CONTRAST Schedule Routine, Read Routine (OP Routine) 01/12/2025 8:20 AM CDT 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) CT CHEST W CONTRAST Schedule Routine, Read Routine (OP Routine) 01/12/2025 8:14 AM CDT 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) POCT CREATININE FOR CONTRAST EVALUATION Routine 01/12/2025 8:14 AM CDT SCREENING MAMMOGRAM BILATERAL W AUDI Schedule Routine, Read Routine (OP Routine) 09/09/2024 Breast cancer screening by mammogram HM DIABETES EYE EXAM Routine 03/19/2024 9:03 AM CDT DEXA AXIAL SKELETON BONE DENSITY 1 OR MORE SITES Schedule Routine, Read Routine (OP Routine) 01/28/2022 Menopause HEPATITIS C ANTIBODY Routine 05/10/2020 10:50 AM CDT Hepatic insufficiency (HCC) from Last 3 Months or Most Recently Relevant to Health Maintenance Results * ECG 12 lead (02/07/2025) 02/07/2025 Narrative Monica Harvey PA - 02/07/2025 10:07 AM CDT Dx: MACK Sinus Rhythm -occasional PAC # PACs = 1. -Anterior infarct -age undetermined. ABNORMAL us Monica MOALLEY ECG ORDERABLES Edited Res ult - Final * Albumin Creatinine Ratio, Urine (02/04/2025 9:03 AM CDT) Creatinine ur 77.4 Not Estab. mg/dL [facility] - 01 Microalbumin, ur <3.0 Not Estab. ug/mL [facility] - 01 Microalbumin/cre at ratio <4 0 - 29 mg/g creat [facility] - 01 Comment: Normal: 0 - 29 Moderately increased: 30 - 300 Severely increased: >300 Urine 02/04/2025 9:03 AM CDT 02/04/2025 Narrative [facility] - 02/05/2025 4:10 PM CDT Performed at: [address] [id number] Anesthesia Assistant: Maurizio Pettit PhD, Phone: [phone] Monica OMALLEY LAB URINE ORDERABLES Final Result Performing Organization Address [facility] de Phone Number [facility] - * Vitamin D 25 hydroxy (02/04/2025 9:03 AM CDT) Vitamin D, 25-Hydroxy 53.2 30.0 - 100.0 ng/mL [facility] - Comment: Vitamin D deficiency has been defined by the [place] of [employer] and an Endocrine Society practice guideline as a level of serum 25-OH vitamin D less than 20 ng/mL (1,2). The Endocrine Society went on to further define vitamin D insufficiency as a level between 21 and 29 ng/mL (2). 1. IOM ([place] of [employer]). 2010. Dietary reference intakes for calcium and D. [place]: The National Academies Press. 2. Ela MF, Juan Carlos MERRITT, Angella DENG, et al. Evaluation, treatment, and prevention of vitamin D deficiency: an Endocrine Society clinical practice guideline. JCEM. 2010; 96(7):1911-30. Blood 02/04/2025 9:03 AM CDT 02/04/2025 Narrative [facility] - 02/05/2025 9:36 AM CDT Performed at: [address] [id number] Anesthesia Assistant: Maurizio Pettit PhD, Phone: [phone] Monica OMALLEY LAB BLOOD ORDERABLES Final Result Performing Organization Address [facility] Co de Phone Number [facility] - * TSH (02/04/2025 9:03 AM CDT) Pathologist [facility] TSH 1.620 0.450 - 4.500 uIU/mL [facility] - 01 Blood 02/04/2025 9:03 AM CDT 02/04/2025 Narrative [facility] - 02/05/2025 7:37 AM CDT Performed at: [address] [place] [id number] Anesthesia Assistant: Maurizio Pettit PhD, Phone: [phone] Monica OMALLEY LAB BLOOD ORDERABLES Final Result Performing Organization Address City/[facility]/ZIP Co de Phone Number [facility] - * (ABNORMAL) Hemoglobin A1c (02/04/2025 9:03 AM CDT) [facility] Hgb A1C 6.9(H) 4.8 - 5.6 % [facility] - 01 Comment: Prediabetes: 5.7 - 6.4 Diabetes: >6.4 Glycemic control for adults with diabetes: <7.0 Blood 02/04/2025 9:03 AM CDT 02/04/2025 Narrative [facility] - 02/05/2025 7:37 AM CDT Performed at: [address] [place] [id number] Anesthesia Assistant: Maurizio Pettit PhD, Phone: [phone] Monica OMALLEY LAB BLOOD ORDERABLES Final Result [facility] - * Lipid panel (02/04/2025 9:03 AM CDT) [facility] Cholesterol 110 100 - 199 mg/dL [facility] - 01 Triglycerides 147 0 - 149 mg/dL [facility] - 01 HDL Cholesterol 44 >39 mg/dL [facility] - 01 VLDL 25 5 - 40 mg/dL [facility] - 01 LDL, calculated 41 0 - 99 mg/dL [facility] - 01 Blood 02/04/2025 9:03 AM CDT 02/04/2025 Narrative [facility] - 02/05/2025 7:37 AM CDT Performed at: [address] [place] [id number] Anesthesia Assistant: Maurizio Pettit PhD, Phone: [phone] Monica OMALLEY LAB BLOOD ORDERABLES Final Result [facility] - 01 * (ABNORMAL) Comprehensive metabolic panel (02/04/2025 9:03 AM CDT) [facility] Glucose 139(H) 70 - 99 mg/dL [facility] - 01 BUN 19 8 - 27 mg/dL [facility] - 01 Creatinine, Serum 0.92 0.57 - 1.00 mg/dL [facility] - 01 eGFR 66 >59 mL/min/1.7 3 [facility] - 01 BUN/creat ratio 21 12 - 28 [facility] - 01 Sodium 138 134 - 144 mmol/L [facility] - 01 Potassium, sr 4.9 3.5 - 5.2 mmol/L [facility] - 01 Chloride 102 96 - 106 mmol/L [facility] - 01 CO2 21 20 - 29 mmol/L [facility] - 01 Calcium 10.1 8.7 - 10.3 mg/dL [facility] - 01 Protein, sr 6.8 6.0 - 8.5 g/dL [facility] - 01 Albumin 4.5 3.8 - 4.8 g/dL [facility] - 01 Globulin, Total 2.3 1.5 - 4.5 g/dL [facility] - 01 Bilirubin, Total 0.3 0.0 - 1.2 mg/dL [facility] - 01 Alk phos 61 44 - 121 IU/L [facility] - 01 AST 21 0 - 40 IU/L [facility] - 01 ALT 23 0 - 32 IU/L [facility] - 01 Blood 02/04/2025 9:03 AM CDT 02/04/2025 Narrative [facility] - 02/05/2025 7:37 AM CDT Performed at: [address] [id number] Anesthesia Assistant: Maurizio Pettit PhD, Phone: [phone] us Monica OMALLEY LAB BLOOD ORDERABLES Final Result Performing Organization Address City/[facility]/ZIP Co de Phone Number [facility] - 01 * POCT glucose (02/01/2025 11:33 AM CDT) Glucose, POC 120 70 - 199 mg/dL Blood 02/01/2025 11:3 3 AM CDT 02/01/2025 11:33 AM CDT us Yordy Melgar MD LAB POCT ORDERABLES - DEVICE Fin al Result Performing Organization Address [facility] Co de Phone Number [address] [place] [address] * Surgical pathology (02/01/2025 10:59 AM CDT) Tissue (Polyp(s), colon/colorectal, esophageal, gastric) 02/01/2025 10:59 AM CDT Tissue specimen (specimen) (Polyp(s), colon/colorectal, esophageal, gastric) 02/01/2025 11:02 AM CDT Tissue specimen (specimen) (Polyp(s), colon/colorectal, esophageal, gastric) 02/01/2025 11:05 AM CDT Tissue specimen (specimen) (Polyp(s), colon/colorectal, esophageal, gastric) 02/01/2025 11:08 AM CDT Tissue specimen (specimen) (Polyp(s), colon/colorectal, esophageal, gastric) 02/01/2025 11:14 AM CDT Narrative PATHOLOGY [facility] - 02/02/2025 4:31 PM CDT [facility] Department of Pathology [address] [place] [id number] Note to Patients: This report may contain a detailed description of human tissue sent by a health care provider to the laboratory for pathologic evaluation. The content of this report is essential for diagnosis and may provide important critical findings. This information may be unfamiliar to patients to review without a medical professional present. It is advised that the patient review this report in the presence of a health care provider who can answer questions and explain the details. Final Report Patient Name: DEVANTE LAMBERT : 1950 (Age: 74) Gender: F Address: [address] [place] [address] Hospital #: [id number] Service: Gastro Location: Patient Type: [facility] Taken: 02/01/2025 Received: 02/01/2025 Accessioned: 02/01/2025 Reported: 02/02/2025 Physician(s): Lurdes Jesus PA-C Diagnosis: A. Hepatic flexure, polyp, biopsy - Tubular adenoma B. Cecum, polyp, biopsy - Tubular adenoma C. Ascending colon, polyp, biopsy - Tubular adenoma D. Transverse colon, polyp, biopsy - Hyperplastic polyp E. Sigmoid colon, polyps x2, biopsy - Two tubular adenomas Brooks Kruger M.D. Report Electronically Reviewed and Signed Out By Brooks Kruger M.D. 02/02/2025 16:31:49 Specimen(s) Received: A: Hepatic flexure polyp- hot snare B: Cecal polyp- hot snare C: Ascending colon polyp - cold biopsy D: Transverse colon polyp- hot snare E: Sigmoid colon polyp x2- ot snare Microscopic Description: Microscopic examination is performed. Microscopic examination is performed. Clinical History: The patient is a 74-year-old woman presenting for colon cancer screening. Operative procedure: Colonoscopy with biopsy. Gross Description Received in five formalin jars labeled with the patient's identifiers. A. Labeled hepatic flexure polyp-hot snare and consists of a 0.5 cm vasquez-pink tissue fragment, which is entirely submitted. Labeled A1. Jar 0. B. Labeled cecal polyp-hot snare and consists of three vasquez tissue fragments admixed with debris, ranging from 0.3-0.4 cm. Entirely submitted. Labeled B1. Jar 0. C. Labeled ascending colon polyp-cold biopsy and consists of four vasquez tissue fragments ranging from 0.1-0.3 cm. Entirely submitted. Labeled C1. Jar 0. D. Labeled transverse colon polyp-hot snare and consists of a 0.4 cm vasquez-pink tissue fragment, which is entirely submitted. Labeled D1. Jar 0. E. Labeled sigmoid colon polyp x2-hot snare and consists of two vasquez-pink tissue fragments measuring 0.3 cm and 0.5 cm. Entirely submitted. Labeled E1. Jar 0. jjb/02/01/2025 15:14 STEFANIE Cast, PA (ASCP) Microscopic slide review and interpretation for this case was performed at [facility], Department of Surgical Pathology, [address] [facility] [place], [place] [id number], [place] [address] CLIA # [id number] us Yordy Melgar MD LAB PATHOLOGY ORDERABLES Final R esult PATHOLOGY [facility] * Colonoscopy (02/01/2025 10:46 AM CDT) Anatomical Region Laterality Modality Other Narrative Procedure Note Yordy Melgar MD - 02/01/2025 10:46 AM CDT [facility] GI ENDOSCOPY Patient Name: Devante Lambert Procedure Date: 02/01/2025 10:46 AM Date of : 1950 Admit Type: Outpatient Age: 74 Gender: Female Attending MD: Yordy Melgar M.D. Room: [facility] ENDOSCOPY ROOM 03 Note Status: Finalized Procedure: Colonoscopy Indications: Screening for colorectal malignant neoplasm Referring MD: Providers: Yordy Melgar M.D. Medicines: Monitored Anesthesia Care Complications: No immediate complications. Estimated Blood Loss: Estimated blood loss: none. Procedure: Pre-Anesthesia Assessment: - Prior to the procedure, a History and Physicalwas performed, and patient medications and allergieswere reviewed. The risks and benefits of the procedureand the sedation options and risks were discussed withthe patient. All questions were answered and informed consent was obtained. Patient identification and proposed procedure were verified. After reviewingthe risks and benefits, the patient was deemed in satisfactory condition to undergo the procedure.The anesthesia plan was to use monitored anesthesiacare (MAC). Immediately prior to administration of medications, the patient was re-assessed foradequacy to receive sedatives. The heart rate, respiratory rate, oxygen saturations, blood pressure, adequacyof pulmonary ventilation, and response to care were monitored throughout the procedure. The physical status of the patient was re-assessed after the procedure. The benefits, risks and alternatives of theprocedure and sedation were discussed and informed consentwas obtained. All questions were answered. Please referto the signed informed consent document in the medical record. The scope was passed under direct vision.The [id number] colonoscope was introduced through theanus and advanced to the cecum, identified byappendiceal orifice and ileocecal valve. The colonoscopy was performed without difficulty. The patient tolerated the procedure well. The quality of the bowel preparation was adequate. Scope withdrawal time was19 minutes. Prep was administered in a split dose. Findings: The perianal and digital rectal examinations were normal. A 15 mm polyp was found in the cecum. The polyp was sessile. Thepolyp was removed with a hot snare. Resection and retrieval were complete.To prevent bleeding post-intervention, one hemostatic clip wassuccessfully placed. Clip wall scraper: Pushfor. There was no bleedingat the end of the procedure. A diminutive polyp was found in the ascending colon. The polyp was removed with a cold biopsy forceps. Resection and retrieval were complete. An 8 mm polyp was found in the hepatic flexure. The polyp wassessile. The polyp was removed with a hot snare. Resection and retrieval were complete. Two sessile polyps were found in the transverse colon. The polypswere 10 mm in size. These polyps were removed with a hot snare. One polypwas retrieved, the other was not. Two sessile polyps were found in the sigmoid colon. The polyps were10 to 12 mm in size. These polyps were removed with a hot snare.Resection and retrieval were complete. Scattered medium-mouthed diverticula were found in the sigmoid colonand descending colon. Non-bleeding internal hemorrhoids were found during retroflexion. The hemorrhoids were small. The exam was otherwise without abnormality. Impression: - One 15 mm polyp in the cecum, removed with a hot snare. Resected and retrieved. Clip was placed.Clip wall scraper: Pushfor. - One diminutive polyp in the ascending colon,removed with a cold biopsy forceps. Resected andretrieved. - One 8 mm polyp at the hepatic flexure, removedwith a hot snare. Resected and retrieved. - Two 10 mm polyps in the transverse colon, removed with a hot snare. - Two 10 to 12 mm polyps in the sigmoid colon,removed with a hot snare. Resected and retrieved. - Diverticulosis in the sigmoid colon and in the descending colon. - Non-bleeding internal hemorrhoids. - The examination was otherwise normal. Recommendation: - Patient has a contact number available for emergencies. The signs and symptoms of potential delayed complications were discussed with thepatient. Return to normal activities tomorrow. Written discharge instructions were provided to thepatient. - High fiber diet. - Continue present medications. - Await pathology results. - Repeat colonoscopy in 3 years for surveillance. Yordy Melgar M.D. Yordy Melgar M.D. 02/01/2025 11:24:16 AM . Number of Addenda: 0 Note Initiated On: 02/01/2025 10:46 AM Recognized by the [employer] for promoting quality in endoscopy us Yordy Melgar MD ENDOSCOPY PROCEDURES Final Resul t * POCT glucose (02/01/2025 9:18 AM CDT) Glucose, POC 141 70 - 199 mg/dL Blood 02/01/2025 9:18 AM CDT 02/01/2025 9:18 AM CDT Yordy Melgar MD LAB POCT ORDERABLES - DEVICE Fin al Result Performing Organization Address City/[facility]/ZIP Co de Phone Number [facility] [address] [place] [address] * eGFR (01/18/2025 10:03 AM CDT) eGFR 78 >=60 mL/min/1. 73 m2 Comment: Interpretive Data Reference Interval Normal >/= 90 mL/min/1.73m2 Mildly decreased* 60 - 89 mL/min/1.73m2 Mildly to moderately decreased 45 - 59 mL/min/1.73m2 Moderately to severely decreased 30 - 44 mL/min/1.73m2 Severely decreased 15 - 29 mL/min/1.73m2 Kidney Failure < 15 mL/min/1.73m2 *Relative to young adult level Estimated glomerular filtration rate is determined by the 2020 CKD-EPI equation recommended by the National [employer] (A Unifying Approach to GFR Estimation: Recommendations of the NKF-ASK Task Force on Reassessing the Inclusion of Race in Diagnosing Kidney Disease, JASN 2020). The CKD-EPI equation should not be used for patients with unstable renal function and has not been validated in children and those over 70. Current interpretive data was last reviewed 2021. Testing performed by: [facility], [address] [place] [address]., [id number] Blood 01/18/2025 10:0 3 AM CDT 01/18/2025 10:05 AM CDT Tracie Raphael MD LAB BLOOD ORDERABLES Final Result [address] [place] [address] * Differential, auto (01/18/2025 10:03 AM CDT) Neutrophil abs 4.76 1.50 - 6.50 K/cumm Comment:Testing performed by : [address] [address] Imm gran abs 0.03 0.00 - 0.10 K/cumm [facility] Comment:Testing performed by : [address] [address] Lymphocyte abs 2.18 0.80 - 3.30 K/cumm [facility] Comment:Testing performed by : [address] [address] Monocyte abs 0.45 0.20 - 0.80 K/cumm [facility] Comment:Testing performed by : [address] [address] Eosinophil abs 0.23 0.00 - 0.50 K/cumm [facility] Comment:Testing performed by : [address] [address] Basophil abs 0.07 0.00 - 0.10 K/cumm [facility] Comment:Testing performed by : [address] [address] Neutrophil pct 61.7 % [facility] Comment: Interpretive Data Percent cell count reference ranges are not reported, since discordance with absolute values may lead to misinterpretation of CBC data. Current Interpretive Data was last revised on 2018. Testing performed by: [address] [address] Imm gran pct 0.4 % [facility] Comment: Interpretive Data Percent cell count reference ranges are not reported, since discordance with absolute values may lead to misinterpretation of CBC data. Current Interpretive Data was last revised on 2018. Testing performed by: [address] [address] Lymphocyte pct 28.2 % [facility] Comment: Interpretive Data Percent cell count reference ranges are not reported, since discordance with absolute values may lead to misinterpretation of CBC data. Current Interpretive Data was last revised on 2018. Testing performed by: [address] [address] Monocyte pct 5.8 % [facility] Comment: Interpretive Data Percent cell count reference ranges are not reported, since discordance with absolute values may lead to misinterpretation of CBC data. Current Interpretive Data was last revised on 2018. Testing performed by: [address] [address] Eosinophil pct 3.0 % [facility] Comment: Interpretive Data Percent cell count reference ranges are not reported, since discordance with absolute values may lead to misinterpretation of CBC data. Current Interpretive Data was last revised on 2018. Testing performed by: [address] [address] Basophil pct 0.9 % [facility] Comment: Interpretive Data Percent cell count reference ranges are not reported, since discordance with absolute values may lead to misinterpretation of CBC data. Current Interpretive Data was last revised on 2018. Testing performed by: [address] [address] Blood 01/18/2025 10:0 3 AM CDT 01/18/2025 10:05 AM CDT Tracie Raphael MD LAB BLOOD ORDERABLES Final Result [facility] [address] [facility] Department of Laboratories [place], [place] [id number] * (ABNORMAL) Iron profile w/ IBC (01/18/2025 10:03 AM CDT) Iron 58 35 - 145 mcg/dL Comment:Testing performed by : [address] [address] TIBC 301 250 - 400 mcg/dL [facility] Comment:Testing performed by : [address] [address] Transferrin saturation 19(L) 20 - 50 % [facility] Comment:Testing performed by : [address] [address] Blood 01/18/2025 10:0 3 AM CDT 01/18/2025 12:01 PM CDT Tracie Raphael MD LAB BLOOD ORDERABLES Final Result [facility] [address] [facility] [place] [address] * (ABNORMAL) CBC with auto differential (01/18/2025 10:03 AM CDT) Pathologist [facility] WBC 7.72 3.80 - 9.90 K/cumm Comment:Testing performed by : [address] [address] Hgb 11.6(L) 11.9 - 15.5 g/dL [facility] Comment:Testing performed by : [address] [address] Hct 34.4(L) 35.6 - 45.5 % [facility] Comment:Testing performed by : [address] [address] Plt 473(H) 150 - 400 K/cumm [facility] Comment:Testing performed by : [address] [address] MPV 8.4(L) 9.1 - 12.3 fL [facility] Comment:Testing performed by : [address] [address] RBC 3.72(L) 3.90 - 5.20 M/cumm [facility] Comment:Testing performed by : [address] [address] MCV 92.5 81.3 - 96.4 fL [facility] Comment:Testing performed by : [address] [address] MCH 31.2 27.1 - 33.3 pg [facility] Comment:Testing performed by : [address] [address] MCHC 33.7 32.3 - 35.7 g/dL [facility] Comment:Testing performed by : [address] [address] RDW CV 13.1 11.1 - 14.9 % [facility] Comment:Testing performed by : [address] [address] RDW SD 43.8 35.7 - 48.1 fL [facility] Comment:Testing performed by : [address] [address] NRBC abs 0.00 0.00 - 0.01 K/cumm [facility] Comment:Testing performed by : [address] [address] ANC Prelim 4.76 1.50 - 6.50 K/cumm [facility] Comment: Interpretive Data The rapid ANC is a preliminary automated count and may vary from the final ANC (Neut Abs) reported in the WBC differential that follows. Current interpretive data was last revised 2024. Testing performed by: [address] [address] Blood 01/18/2025 10:0 3 AM CDT 01/18/2025 10:05 AM CDT Tracie Raphael MD LAB BLOOD ORDERABLES Final Result Performing Organization Address City/[facility]/ZIP Co de Phone Number [address] [place] [address] * Ferritin (01/18/2025 10:03 AM CDT) [facility] Ferritin 96 15 - 150 ng/mL Comment:Testing performed by : [address] [address] Blood 01/18/2025 10:0 3 AM CDT 01/18/2025 12:01 PM CDT Tracie Raphael MD LAB BLOOD ORDERABLES Final Result [place] [id number] [facility] [place] [address] * CEA (01/18/2025 10:03 AM CDT) CEA 2.6 <=5.0 ng/mL Comment: Interpretive Data: Reference Range: Non-Smokers: 0.0 5.0 ng/mL Smokers: 0.0 6.5 ng/mL The Christine CEA assay procedure was used. Results from different manufacturers or methods may not be comparable. Serial testing should be performed using the same method. Current interpretive data was last revised 2023. Testing performed by: [address] [address] Blood 01/18/2025 10:0 3 AM CDT 01/18/2025 12:01 PM CDT Tracie Raphael MD LAB BLOOD ORDERABLES Final Result [facility] [place] [address] * (ABNORMAL) Comprehensive metabolic panel (01/18/2025 10:03 AM CDT) Pathologist [facility] Sodium 140 135 - 145 mmol/L Comment:Testing performed by : [address] [address] Potassium, pl 4.4 3.3 - 4.9 mmol/L [facility] Comment:Testing performed by : [address] [address] Chloride 105 97 - 110 mmol/L [facility] Comment:Testing performed by : [address] [address] CO2 25 22 - 32 mmol/L [facility] Comment:Testing performed by : [address] [address] Anion gap 10 2 - 15 mmol/L [facility] Comment:Testing performed by : [address] [address] BUN 20 6 - 25 mg/dL [facility] Comment:Testing performed by : [address] [address] Creatinine 0.80 0.60 - 1.10 mg/dL [facility] Comment:Testing performed by : [address] [address] Glucose 142 70 - 199 mg/dL [facility] Comment: Interpretive Data Fasting glucose >/= 126 mg/dl is diagnostic for diabetes. Fasting is defined as no caloric intake for at least 8 hours. Fasting glucose between 100 mg/dl to 125 mg/dl is diagnostic of prediabetes. In a patient with classic symptoms of hyperglycemia or hyperglycemic crisis, a random glucose >/= 200 mg/dl is diagnostic for diabetes. In the absence of unequivocal hyperglycemia, results should be confirmed by repeat testing. The classification and Diagnosis of Diabetes Diabetes Care 2021; 46: S19-S40. Current interpretive data was last revised 2022. Testing performed by: [address] [address] Calcium 10.7(H) 8.5 - 10.3 mg/dL [facility] Comment:Testing performed by : [address] [address] Bilirubin, total 0.5 0.1 - 1.2 mg/dL [facility] Comment:Testing performed by : [address] [address] Protein, pl 6.9 6.5 - 8.5 g/dL [facility] Comment:Testing performed by : [address] [address] Albumin 4.8 3.5 - 5.0 g/dL [facility] Comment:Testing performed by : [address] [address] Alk phos 61 40 - 130 Units/L [facility] Comment:Testing performed by : [address] [address] ALT 29 7 - 45 Units/L [facility] Comment:Testing performed by : [address] [address] AST 26 10 - 45 Units/L [facility] Comment:Testing performed by : [address] [address] Blood 01/18/2025 10:0 3 AM CDT 01/18/2025 10:05 AM CDT us rTacie Raphael MD LAB BLOOD ORDERABLES Final Result [facility] [address] [facility] [place] [address] * MRI Pelvis W WO Contrast (01/12/2025 10:55 AM CDT) Anatomical Region Laterality Modality Pelvis N/A Magnetic Resonan ce 01/18/2025 11:3 5 AM CDT Narrative 01/18/2025 11:51 AM CDT EXAM DESCRIPTION: MRI PELVIS W WO CONTRAST REASON FOR STUDY: Colon Cancer 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 Patient denies any symptoms. 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 Status post radiation therapy completed September 2019 and multiple cycles of chemotherapy. CT November 2019 with concern for hepatic metastatic disease. On surveillance since may 2020. TECHNIQUE: Multiplanar, multisequence MRI of the pelvis was performed before and after intravenous administration. CONTRAST TYPE/DOSE: 14mL of GADOTERATE MEGLUMINE 0.5 MMOL/ML INTRAVENOUS SOLUTION (SO) injected via intravenous COMPARISON: 07/13/2024 12/31/2023 06/30/2023 08/27/2019 09/03/2019 FINDINGS: GASTROINTESTINAL: Extensive colonic diverticulosis without acute inflammation. BLADDER/URINARY: No significant wall thickening. Excreted contrast within the bladder lumen on delayed venous phase. REPRODUCTIVE: Status post hysterectomy. No concerning adnexal mass. Unremarkable appearance of the vaginal cuff without evidence of local recurrence. LYMPH NODES: No pathologically enlarged lymphadenopathy. VASCULATURE: Grossly patent. 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 BONES/SOFT TISSUES: Mild enhancement at the hamstring tendon origin, favored degenerative. No aggressive appearing enhancing osseous lesions. OTHER: No other significant finding. IMPRESSION: No evidence of local recurrence or metastatic disease in the pelvis. THIS IS AN ELECTRONICALLY VERIFIED FINAL REPORT 01/18/2025 11:51 AM - Electronically signed by Garo Campbell M.D. 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 Patient denies anysymptoms. 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 Status post radiation therapy completed September 2019 and multiple cycles of chemotherapy. CT November 2019 with concern for hepatic metastaticdisease. On surveillance since may 2020. TECHNIQUE: Multiplanar, multisequence MRI of the pelvis was performedbefore and after intravenous administration. CONTRAST TYPE/DOSE: 14mL of GADOTERATE MEGLUMINE 0.5 MMOL/ML INTRAVENOUS SOLUTION (SO) injected via intravenous COMPARISON: 07/13/2024 12/31/2023 06/30/2023 08/27/2019 09/03/2019 FINDINGS: GASTROINTESTINAL: Extensive colonic diverticulosis withoutacute inflammation. BLADDER/URINARY: No significant wall thickening. Excreted contrastwithin the bladder lumen on delayed venous phase. REPRODUCTIVE: Status post hysterectomy. No concerning adnexal mass. Unremarkable appearance of the vaginal cuff without evidence of local recurrence. LYMPH NODES: No pathologically enlarged lymphadenopathy. VASCULATURE: Grossly patent. 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 BONES/SOFT TISSUES: Mild enhancement at the hamstring tendon origin,favored degenerative. No aggressive appearing enhancing osseous lesions. OTHER: No other significant finding. IMPRESSION: No evidence of local recurrence or metastatic disease in the pelvis. THIS IS AN ELECTRONICALLY VERIFIED FINAL REPORT 01/18/2025 11:51 AM - Electronically signed by Garo Campbell M.D. 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 Reconstructed coronal and sagittal MPR images reviewed. All images stored on PACS. Automated exposure control was used as a dose optimization technique for this examination. CONTRAST TYPE/DOSE: 85mL of IOVERSOL 350 MG IODINE/ML INTRAVENOUS SYRINGE was injected via the intravenous COMPARISON: 07/13/2024. REFERENCE: Per ACR white paper recommendations, unless otherwise specified no follow-up imaging is recommended for incidental renal and adrenal lesions per consensus recommendations based on imaging criteria. Further lab evaluation could be pursued based on clinical findings. FINDINGS: CHEST LUNGS: The central airways are patent. There is some mild subpleural ground-density most likely atelectasis. Few previous tiny pulmonary nodules are grossly stable. There is no pulmonary nodule or mass. There is atelectasis in the lingula and right middle lobe. No focal consolidation. PLEURA: No pleural effusion or pneumothorax. MEDIASTINUM/MEENA: No mediastinal or hilar mass. Thyroid gland is atrophic. There appears to be some surgical clips in the right aspect of the neck. HEART: Heart size is normal. There is no pericardial effusion. VASCULATURE CHEST: No filling defect in the central pulmonary arteries. The thoracic aorta is nonaneurysmal. AXILLA: No axillary lymphadenopathy is seen. CHEST WALL: No chest wall mass or subcutaneous emphysema. HARDWARE/LIFELINES: None. MUSCULOSKELETAL CHEST: Bone windows demonstrate no acute or aggressive osseous abnormality. There is mild anterior wedging in the midthoracic spine. Tiny sclerotic focus at T10. ABDOMEN LIVER: The liver size and contour normal. The portal and hepatic veins are patent. Few small hepatic lesions likely cysts common example in hepatic segment IV 0.5 cm (image 30). The liver is 19.8 cm. GALLBLADDER: Gallbladder is surgically absent. BILE DUCTS: No biliary ductal dilation. SPLEEN: Spleen size is normal. There are granulomatous calcifications in the spleen. PANCREAS: No pancreatic mass or inflammatory change. ADRENALS: Normal KIDNEYS/URINARY TRACT: No right renal calculus. No left renal calculus. There is a low-density lesion in the lower pole left kidney 0.7 cm -9 Hounsfield units. No ureteral calculus. No hydronephrosis or hydroureter. GI: The included bowel is unremarkable. The terminal ileum and the appendix are normal. There are mild descending colon diverticula. The stomach and duodenum are normal. No abnormal bowel wall thickening. PERITONEUM: No ascites or free air. There is no mesenteric mass or lymphadenopathy. RETROPERITONEUM: No retroperitoneal mass or lymphadenopathy. VASCULATURE ABDOMEN: Abdominal aorta is nonaneurysmal. MUSCULOSKELETAL ABDOMEN: Bone windows demonstrate no acute or aggressive osseous abnormality. There is trace anterolisthesis of L5 on S1. There is vacuum disc phenomena at L4-5. OTHER: No significant abnormality. IMPRESSION: No evidence of metastatic disease within the chest or abdomen. Cholecystectomy. Few small hepatic lesions likely cysts. Mild descending colon diverticulosis. See the separately dictated MRI pelvis. THIS IS AN ELECTRONICALLY VERIFIED FINAL REPORT 01/17/2025 11:21 AM - Electronically signed by Christian Ken M.D. 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 Reconstructed coronal and sagittal MPRimages reviewed. All images stored on PACS. Automated exposure control wasused as a dose optimization technique for this examination. CONTRAST TYPE/DOSE: 85mL of IOVERSOL 350 MG IODINE/ML INTRAVENOUSSYRINGE was injected via the intravenous COMPARISON: 07/13/2024. REFERENCE: Per ACR white paper recommendations, unless otherwise specifiedno follow-up imaging is recommended for incidental renal and adrenal lesionsper consensus recommendations based on imaging criteria. Further labevaluation could be pursued based on clinical findings. FINDINGS: CHEST LUNGS: The central airways are patent. There is some mild subpleural ground-density most likely atelectasis. Few previous tiny pulmonarynodules are grossly stable. There is no pulmonary nodule or mass. There is atelectasis in the lingula and right middle lobe. No focal consolidation. PLEURA: No pleural effusion or pneumothorax. MEDIASTINUM/MEENA: No mediastinal or hilar mass. Thyroid gland isatrophic. There appears to be some surgical clips in the right aspect of the neck. HEART: Heart size is normal. There is no pericardial effusion. VASCULATURE CHEST: No filling defect in the central pulmonary arteries.The thoracic aorta is nonaneurysmal. AXILLA: No axillary lymphadenopathy is seen. CHEST WALL: No chest wall mass or subcutaneous emphysema. HARDWARE/LIFELINES: None. MUSCULOSKELETAL CHEST: Bone windows demonstrate no acute or aggressive osseous abnormality. There is mild anterior wedging in the midthoracicspine. Tiny sclerotic focus at T10. ABDOMEN LIVER: The liver size and contour normal. The portal and hepatic veinsare patent. Few small hepatic lesions likely cysts common example in hepatic segment IV 0.5 cm (image 30). The liver is 19.8 cm. GALLBLADDER: Gallbladder is surgically absent. BILE DUCTS: No biliary ductal dilation. SPLEEN: Spleen size is normal. There are granulomatous calcifications inthe spleen. PANCREAS: No pancreatic mass or inflammatory change. ADRENALS: Normal KIDNEYS/URINARY TRACT: No right renal calculus. No left renal calculus. There is a low-density lesion in the lower pole left kidney 0.7 cm -9 Hounsfield units. No ureteral calculus. No hydronephrosis orhydroureter. GI: The included bowel is unremarkable. The terminal ileum and theappendix are normal. There are mild descending colon diverticula. The stomach and duodenum are normal. No abnormal bowel wall thickening. PERITONEUM: No ascites or free air. There is no mesenteric mass or lymphadenopathy. RETROPERITONEUM: No retroperitoneal mass or lymphadenopathy. VASCULATURE ABDOMEN: Abdominal aorta is nonaneurysmal. MUSCULOSKELETAL ABDOMEN: Bone windows demonstrate no acute or aggressive osseous abnormality. There is trace anterolisthesis of L5 on S1. Thereis vacuum disc phenomena at L4-5. OTHER: No significant abnormality. IMPRESSION: No evidence of metastatic disease within the chest or abdomen. Cholecystectomy. Few small hepatic lesions likely cysts. Mild descending colon diverticulosis. See the separately dictated MRI pelvis. THIS IS AN ELECTRONICALLY VERIFIED FINAL REPORT 01/17/2025 11:21 AM - Electronically signed by Christian Ken M.D. 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 Reconstructed coronal and sagittal MPR images reviewed. All images stored on PACS. Automated exposure control was used as a dose optimization technique for this examination. CONTRAST TYPE/DOSE: 85mL of IOVERSOL 350 MG IODINE/ML INTRAVENOUS SYRINGE was injected via the intravenous COMPARISON: 07/13/2024. REFERENCE: Per ACR white paper recommendations, unless otherwise specified no follow-up imaging is recommended for incidental renal and adrenal lesions per consensus recommendations based on imaging criteria. Further lab evaluation could be pursued based on clinical findings. FINDINGS: CHEST LUNGS: The central airways are patent. There is some mild subpleural ground-density most likely atelectasis. Few previous tiny pulmonary nodules are grossly stable. There is no pulmonary nodule or mass. There is atelectasis in the lingula and right middle lobe. No focal consolidation. PLEURA: No pleural effusion or pneumothorax. MEDIASTINUM/MEENA: No mediastinal or hilar mass. Thyroid gland is atrophic. There appears to be some surgical clips in the right aspect of the neck. HEART: Heart size is normal. There is no pericardial effusion. VASCULATURE CHEST: No filling defect in the central pulmonary arteries. The thoracic aorta is nonaneurysmal. AXILLA: No axillary lymphadenopathy is seen. CHEST WALL: No chest wall mass or subcutaneous emphysema. HARDWARE/LIFELINES: None. MUSCULOSKELETAL CHEST: Bone windows demonstrate no acute or aggressive osseous abnormality. There is mild anterior wedging in the midthoracic spine. Tiny sclerotic focus at T10. ABDOMEN LIVER: The liver size and contour normal. The portal and hepatic veins are patent. Few small hepatic lesions likely cysts common example in hepatic segment IV 0.5 cm (image 30). The liver is 19.8 cm. GALLBLADDER: Gallbladder is surgically absent. BILE DUCTS: No biliary ductal dilation. SPLEEN: Spleen size is normal. There are granulomatous calcifications in the spleen. PANCREAS: No pancreatic mass or inflammatory change. ADRENALS: Normal KIDNEYS/URINARY TRACT: No right renal calculus. No left renal calculus. There is a low-density lesion in the lower pole left kidney 0.7 cm -9 Hounsfield units. No ureteral calculus. No hydronephrosis or hydroureter. GI: The included bowel is unremarkable. The terminal ileum and the appendix are normal. There are mild descending colon diverticula. The stomach and duodenum are normal. No abnormal bowel wall thickening. PERITONEUM: No ascites or free air. There is no mesenteric mass or lymphadenopathy. RETROPERITONEUM: No retroperitoneal mass or lymphadenopathy. VASCULATURE ABDOMEN: Abdominal aorta is nonaneurysmal. MUSCULOSKELETAL ABDOMEN: Bone windows demonstrate no acute or aggressive osseous abnormality. There is trace anterolisthesis of L5 on S1. There is vacuum disc phenomena at L4-5. OTHER: No significant abnormality. IMPRESSION: No evidence of metastatic disease within the chest or abdomen. Cholecystectomy. Few small hepatic lesions likely cysts. Mild descending colon diverticulosis. See the separately dictated MRI pelvis. THIS IS AN ELECTRONICALLY VERIFIED FINAL REPORT 01/17/2025 11:21 AM - Electronically signed by Christian Ken M.D. 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 Reconstructed coronal and sagittal MPRimages reviewed. All images stored on PACS. Automated exposure control wasused as a dose optimization technique for this examination. CONTRAST TYPE/DOSE: 85mL of IOVERSOL 350 MG IODINE/ML INTRAVENOUSSYRINGE was injected via the intravenous COMPARISON: 07/13/2024. REFERENCE: Per ACR white paper recommendations, unless otherwise specifiedno follow-up imaging is recommended for incidental renal and adrenal lesionsper consensus recommendations based on imaging criteria. Further labevaluation could be pursued based on clinical findings. FINDINGS: CHEST LUNGS: The central airways are patent. There is some mild subpleural ground-density most likely atelectasis. Few previous tiny pulmonarynodules are grossly stable. There is no pulmonary nodule or mass. There is atelectasis in the lingula and right middle lobe. No focal consolidation. PLEURA: No pleural effusion or pneumothorax. MEDIASTINUM/MEENA: No mediastinal or hilar mass. Thyroid gland isatrophic. There appears to be some surgical clips in the right aspect of the neck. HEART: Heart size is normal. There is no pericardial effusion. VASCULATURE CHEST: No filling defect in the central pulmonary arteries.The thoracic aorta is nonaneurysmal. AXILLA: No axillary lymphadenopathy is seen. CHEST WALL: No chest wall mass or subcutaneous emphysema. HARDWARE/LIFELINES: None. MUSCULOSKELETAL CHEST: Bone windows demonstrate no acute or aggressive osseous abnormality. There is mild anterior wedging in the midthoracicspine. Tiny sclerotic focus at T10. ABDOMEN LIVER: The liver size and contour normal. The portal and hepatic veinsare patent. Few small hepatic lesions likely cysts common example in hepatic segment IV 0.5 cm (image 30). The liver is 19.8 cm. GALLBLADDER: Gallbladder is surgically absent. BILE DUCTS: No biliary ductal dilation. SPLEEN: Spleen size is normal. There are granulomatous calcifications inthe spleen. PANCREAS: No pancreatic mass or inflammatory change. ADRENALS: Normal KIDNEYS/URINARY TRACT: No right renal calculus. No left renal calculus. There is a low-density lesion in the lower pole left kidney 0.7 cm -9 Hounsfield units. No ureteral calculus. No hydronephrosis orhydroureter. GI: The included bowel is unremarkable. The terminal ileum and theappendix are normal. There are mild descending colon diverticula. The stomach and duodenum are normal. No abnormal bowel wall thickening. PERITONEUM: No ascites or free air. There is no mesenteric mass or lymphadenopathy. RETROPERITONEUM: No retroperitoneal mass or lymphadenopathy. VASCULATURE ABDOMEN: Abdominal aorta is nonaneurysmal. MUSCULOSKELETAL ABDOMEN: Bone windows demonstrate no acute or aggressive osseous abnormality. There is trace anterolisthesis of L5 on S1. Thereis vacuum disc phenomena at L4-5. OTHER: No significant abnormality. IMPRESSION: No evidence of metastatic disease within the chest or abdomen. Cholecystectomy. Few small hepatic lesions likely cysts. Mild descending colon diverticulosis. See the separately dictated MRI pelvis. THIS IS AN ELECTRONICALLY VERIFIED FINAL REPORT 01/17/2025 11:21 AM - Electronically signed by Christian Ken M.D. CH: Report ID: [id number] Reading Location: [id number] Tracie Raphael MD IMG CT PROCEDURES Fi nal Result * POCT creatinine for contrast evaluation (01/12/2025 8:14 AM CDT) Creatinine POC 0.70 0.60 - 1.10 mg/dL Comment:Testing performed by : [facility], [address] [place] [address]., [address] Blood 01/12/2025 8:14 AM CDT 01/12/2025 8:14 AM CDT Adryan Carver MD POINT OF CARE TEST ORDERABLE S Final Result [facility] [address] [facility] [place] [address] * Screening Mammogram Bilateral W Audi (09/09/2024) Anatomical Region Laterality Modality Breast Bilateral Mammography 09/09/2024 Impressions 09/10/2024 10:12 AM COMBAT CONTROL BI-RADS Category 1-Negative Monica OMALLEY IMG MAMMO PROCEDURES Final Result * DIABETES EYE EXAM (03/19/2024 9:03 AM CDT) SCRIBED DIABETIC DILATED EYE EXAM Normal Historical Provider HEALTH MAINTENANCE Edited Result - Final * Dexa Axial Skeleton Bone Density 1 or 2 Site (01/28/2022) Anatomical Region Laterality Modality Body N/A Radiographic Vania ging Monica OMALLEY IMG DXA PROCEDURES Final R esult * Hepatitis C antibody (05/10/2020 10:50 AM CDT) Hep C Ab Nonreactive Nonreactive [facility] REYNOLDS Comment:Antibodies to HCV no t detected. Does NOT exclude the possibility of recent exposure to HCV. Blood specimen (specimen) 05/10/2020 10:50 AM CDT 05/10/2020 10:59 AM CDT Julio Benedict MD LAB MICROBIOLOGY - [facility] [place] Edited Result - Final [facility] Department [place] [address] from Last 3 Months or Most Recently Relevant to Health Maintenance Insurance [facility] Member Subscriber Plan / Payer (Ef fective 2018-Present) Name:Devante Lambert Relation to Subscriber:Self Name:Devante Lambert Payer ID:[id number] (NAIC) Type:MEDICARE RISK OTHER Address: [address] [facility] [address] [facility] [place] [id number] [facility] Member Subscriber Plan / Payer (Ef fective 2018-Present) Name:Devante Lambert Relation to Subscriber:Self Name:Devante Lambert Payer ID:[id number] (NAIC) Type:MEDICARE RISK OTHER Address: [address] [facility] [place] [id number] Advance Directives For more information, please contact: [phone] Documents on File Type Date Recorded Patient [facility] Trucker Expl anation ADVANCE DIRECTIVE 09/29/2019 4:35 AM ADVANCE DIRECTIVE 07/27/2019 Living Lukas villalta * Full Code (Latest Code Status on File) Date Activated Date Inactivated Comments 01/10/2021 8:48 AM 01/10/2021 2:18 PM * Full Code Date Activated Date Inactivated Comments 05/15/2020 8:17 AM 05/15/2020 2:27 PM * Full Code Date Activated Date Inactivated Comments 02/16/2020 8:47 AM 02/16/2020 3:18 PM * Full Code Date Activated Date Inactivated Comments 09/21/2019 2:59 PM 09/24/2019 10:15 PM * Full Code Date Activated Date Inactivated Comments 09/08/2019 6:47 AM 09/08/2019 12:57 PM Care Teams Healthcare Translator Relationship Specialty Start Date End Date Monica Harvey PA [address] [place] [address] PCP - General Internal Medicine 01/03/24 Christiano Kidd MD Consulting Physician Urology 02/08/19 Malcom Ramirez MD Referring Physician Obstetrics and Gynecology 07/27/19 Jatin Carver MD [address] [facility] [id number] [place] [address] Medical Oncologist Gynecologic Oncology 08/25/19 Adryan Carver MD [address] [facility] [id number] [place] [address] Surgeon General Surgery 08/25/19 Tracie Raphael MD [address] [facility] [id number] [place] [address] Medical Oncologist/Candles Pourer Medical Oncology 09/08/19 Jatin Giron MD [address] [facility] [id number] [place] [address] Consulting Physician Family Medicine 02/11/20
--- OUTSIDE RECORDS SUMMARY | 2025-03-09 08:04 | XMS_ITS | Encounter Summary ---
Author Organization [facility] Care Team Providers Care Open Shank Coverer Name Role Phone Monica Harvey Primary Care Provider [phone] Christiano Kidd MD Unavailable [phone] Malcom Ramirez MD Unavailable [phone] Jatin Carver MD Unavailable [phone] Adryan Carver MD Unavailable [phone] Lynette Villela MD Unavailable [phone] Jatin Giron MD Primary Care Provider [phone] Jatin Giron MD Primary Care Provider [phone] Tracie Raphael MD Unavailable +- [phone] Monica Harvey Primary Care Provider +- [phone] Jatin Giron MD Unavailable [phone] Jatin Giron MD Primary Care Provider [phone] Monica Harvey Primary Care Provider [phone]- [phone] Encounter Details Date Type Department Care Team (Latest Contact Info) Description 09/18/2017 Orders Only [facility] Provider, MD Glenn [address] [place] [address] Social History Tobacco Use Types Packs/Day Years Used Date Smoking Tobacco: Never Assessed Comments Unknown Sex and Gender Information Value Date Recorded Sex Assigned at Not on file Legal Sex Female 11:59 PM APPLICATION DBA Gender Identity Not on file Sexual Orientation Not on file documented as of this encounter Plan of Treatment Not on file documented as of this encounter Procedures Procedure Name Priority Date/Time Associated Diagnosis Comments COLONOSCOPY - SCAN 09/18/2017 12 :00 AM APPLICATION DBA documented in this encounter Results * COLONOSCOPY - SCAN (09/18/2017 12:00 AM APPLICATION DBA) Narrative 09/18/2017 12:00 AM APPLICATION DBA Ordered by an unspecified provider. us Historical Provider Final Res ult documented in this encounter Visit Diagnoses Not on filedocumented in this encounter Additional Health Concerns Infection Onset Date Last Indicated Resolved Time COVID: Suspected 09/11/2020 09/11/2020 09/13/2020 4:02 PM APPLICATION DBA COVID19 09/12/2020 09/12/2020 09/26/2020 3:07 AM APPLICATION DBA COVID: Recovered Comment:Added based on recent COVID infection. 09/26/2020 10/02/2020 01/24/2021 3:05 AM C DT documented as of this encounter Care Teams Open Shank Coverer Relationship Specialty Start Date End Date Monica Harvey PA [address] [place] [address] PCP - General Internal Medicine 10/06/18 08/25/19 Jatin Giron MD [address] [facility] [id number] [place] [address] PCP - General Family Medicine 08/26/19 08/26/19 Jatin Giron MD [address] [facility] [id number] [place] [address] PCP - General 08/27/19 09/12/19 Monica Harvey PA [address] [place] [address] PCP - General Internal Medicine 09/13/19 12/30/23 Jatin Giron MD [address] [facility] [id number] [place] [address] PCP - General Family Medicine 12/31/23 01/02/24 Monica Harvey PA [address] [place] [address] PCP - General Internal Medicine 01/03/24 Christiano Kidd MD [address] [place] [address] Consulting Physician Urology 02/08/19 Malcom Ramirez MD [address] [place] [address] Referring Physician Obstetrics and Gynecology 07/27/19 Jatin Carver MD [address] [facility] [id number] [place] [address] Medical Oncologist Gynecologic Oncology 08/25/19 Adryan Carver MD [address] [facility] [id number] [place] [address] Surgeon General Surgery 08/25/19 Lynette Villela MD [address] [facility] [id number] [place] [address] Radiation Oncologist Radiation Oncology 08/25/19 Tracie Raphael MD [address] [facility] [id number] [place] [address] Medical Oncologist/Computer Hardware Developer Medical Oncology 09/08/19 Jatin Giron MD [address] [facility] [id number] [place] [address] Consulting Physician Family Medicine 02/11/20 documented as of this encounter
--- OUTSIDE RECORDS SUMMARY | 2025-03-09 08:04 | XMS_ITS | Encounter Summary ---
Author Organization [facility] Address [address] [place] [address] Care Team Providers Care Radio Division Officer Name Role Phone Christiano Kidd MD Unavailable [phone] Malcom Ramirez MD Unavailable [phone] Jatin Carver MD Unavailable [phone] Adryan Carver MD Unavailable Tracie Raphael MD Unavailable [phone] Jatin Giron MD Unavailable [phone] Monica Harvey Primary Care Provider [phone] Encounter Details Date Type Department Care Team (Late st Contact Info) Description 06/10/2024 Orders Only [facility] Health Information Management [address] [place] [address] Scanning, Provider Social History Tobacco Use Types Packs/Day Years Used Date Smoking Tobacco: Never Smokeless Tobacco: Never Alcohol Use Standard Drinks/Week Comments Never 0 (1 standard drink = 0.6 oz pur e alcohol) AUDIT-C Answer Date Recorded Q1: How often do you have a drink containing alcohol? Never 12/30/2023 Q2: How many drinks containi ng alcohol do you have on a typical day when you are drinking? Patient does not drink Q3: How often do you have si x or more drinks on one occasion? 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 Gender Identity Not on file Sexual Orientation Not on file documented as of this encounter Plan of Treatment Not on file documented as of this encounter Procedures Procedure Name Priority Date/Time Associated Diagnosis Comments SCAN - LABS 06/10/2024 documented in this encounter Results * SCAN - LABS (06/10/2024) us Provider Scanning Final Result documented in this encounter Visit Diagnoses Not on filedocumented in this encounter Care Teams Radio Division Officer Relationship Specialty Start Date End Date Monica Harvey PA [address] [place] [address] PCP - General Internal Medicine 01/03/24 Christiano Kidd MD Consulting Physician Urology 02/08/19 Malcom Ramirez MD Referring Physician Obstetrics and Gynecology 07/27/19 Jatin Carver MD [address] [facility] [id number] [place] [address] Medical Oncologist Gynecologic Oncology 08/25/19 Adryan Carver MD [address] [facility] [id number] [place] [address] Surgeon General Surgery 08/25/19 Tracie Raphael MD [address] [id number] [place] [address] Medical Oncologist/Creative Writer Medical Oncology 09/08/19 Jatin Giron MD [address] [facility] [id number] [place] [address] Consulting Physician Family Medicine 02/11/20 documented as of this encounter
--- OUTSIDE RECORDS SUMMARY | 2025-03-09 08:04 | XMS_ITS | Encounter Summary ---
Author Organization [facility] Address [address] [place] [address] Care Team Providers Care Wagon Drill Operator Name Role Phone Christiano Kidd MD Unavailable [phone] Malcom Ramirez MD Unavailable [phone] Jatin Carver MD Unavailable [phone] Adryan Carver MD Unavailable [phone] Lynette Villela MD Unavailable [phone] Tracie Raphael MD Unavailable [phone] Monica Harvey Primary Care Provider [phone] Jatin Giron MD Unavailable [phone] Jatin Giron MD Primary Care Provider [phone] Monica Harvey Primary Care Provider [phone] Encounter Details Date Type Department Care Team (Late st Contact Info) Description 07/26/2021 Telephone [facility] [address] [place] [address] Sanjeev Stark, RT Social History Tobacco Use Types Packs/Day Years Used Date Smoking Tobacco: Never Smokeless Tobacco: Never Alcohol Use Standard Drinks/Week Comments Never 0 (1 standard drink = 0.6 oz pur e alcohol) AUDIT-C Answer Date Recorded Q1: How often do you have a drink containing alc ohol? Never 06/05/2021 Average Number of Drinks Not on file 021 Q3: How often do you have si x or more drinks on one occasion? 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 Gender Identity Not on file Sexual Orientation Not on file documented as of this encounter Plan of Treatment Not on file documented as of this encounter Visit Diagnoses Not on filedocumented in this encounter Care Teams Wagon Drill Operator Relationship Specialty Start Date End Date Monica Harvey PA [address] [place] [address] PCP - General Internal Medicine 09/13/19 12/30/23 Jatin Giron MD [address] [place] [address] PCP - General Family Medicine 12/31/23 01/02/24 Monica Harvey PA [address] [place] [address] PCP - General Internal Medicine 01/03/24 Christiano Kidd MD Consulting Physician Urology 02/08/19 Malcom Ramirez MD Referring Physician Obstetrics and Gynecology 07/27/19 Jatin Carver MD [address] [facility] [id number] [place] [address] Medical Oncologist Gynecologic Oncology 08/25/19 Adryan Carver MD [address] [facility] [id number] [place] [address] Surgeon General Surgery 08/25/19 Lynette Villela MD [address] [facility] [id number] [place] [address] Radiation Oncologist Radiation Oncology 08/25/19 Tracie Raphael MD [address] [facility] [id number] [place] [address] Medical Oncologist/Pharmacology Teacher Medical Oncology 09/08/19 Jatin Giron MD [address] [address] Consulting Physician Family Medicine 02/11/20 documented as of this encounter
--- OUTSIDE RECORDS SUMMARY | 2025-03-09 08:04 | XMS_ITS | Encounter Summary ---
Author Organization [facility] Healthcare Address [address] [place] [address] Care Team Providers Care Manager Speech Name Role Phone Christiano Kidd MD Unavailable [phone] Malcom Ramirez MD Unavailable [phone] Jatin Carver MD Unavailable [phone] Adryan Carver MD Unavailable [phone] Tracie Raphael MD Unavailable [phone] Jatin Giron MD Unavailable [phone] Monica Harvey Primary Care Provider [phone] Encounter Details Date Type Department Care Team (Latest Contact Info) Description 02/05/2025 Results Follow-Up [facility] Medical Group Family Medicine [address] [place] [id number] Monica Harvey PA [address] [facility] [address] [place] [address] Comprehensive metabolic panel, Lipid panel, TSH, Additional followed-up results: 3 Social History Tobacco Use Types Packs/Day Years [...] on file 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 Never 02/07/2025 9:54 AM Loly Ortiz M A Q2: How many drinks containing alcohol do you have on a typical day when you are drinking? Patient does not drink 02/07/2025 9:54 AM Loly Ortiz MA Q3: How often do you have six or more drinks on one occasion? Never 02/07/2025 9:54 AM Loly Ortiz M A documented as of this encounter Plan of Treatment Not on file documented as of this encounter Visit Diagnoses Not on filedocumented in this encounter Care Teams Manager Speech Relationship Specialty Start Date End Date Monica Harvey PA [address] [place] [address] PCP - General Internal Medicine 01/03/24 Christiano Kidd MD Consulting Physician Urology 02/08/19 Malcom Ramirez MD Referring Physician Obstetrics and Gynecology 07/27/19 Jatin Carver MD [address] [facility] [id number] [place] [address] Medical Oncologist Gynecologic Oncology 08/25/19 Adryan Carver MD [address] [facility] [id number] [place] [address] Surgeon General Surgery 08/25/19 Tracie Raphael MD [address] [facility] [id number] [place] [address] Medical Oncologist/Quebracho Tanner Medical Oncology 09/08/19 Jatin Giron MD [address] [facility] [id number] [place] [address] Consulting Physician Family Medicine 02/11/20 documented as of this encounter
--- OUTSIDE RECORDS SUMMARY | 2025-03-09 08:04 | XMS_ITS | Encounter Summary ---
Author Organization [facility] Healthcare Address [address] [place] [address] Care Team Providers Care Inserter Name Role Phone Christiano Kidd MD Unavailable [phone] Malcom Ramirez MD Unavailable [phone] Jatin Carver MD Unavailable [phone] Adryan Carver MD Unavailable [phone] Tracie Raphael MD Unavailable [phone] Jatin Giron MD Unavailable [phone] Monica Harvey Primary Care Provider [phone] Encounter Details Date Type Department Care Team (Late st Contact Info) Description 08/30/2024 Orders Only [facility] Information [facility] [address] [place] [address] Bertha Hernandez MD [facility] [address] Social History Tobacco Use Types Packs/Day Years Used Date Smoking Tobacco: Never Smokeless Tobacco: Never Alcohol Use Standard Drinks/Week Comments Never 0 (1 standard drink = 0.6 oz pur e alcohol) AUDIT-C Answer Date Recorded Frequency of Alcohol Consumption Not on file 07/20/2024 Q2: How many drinks containi ng alcohol do you have on a typical day when you are drinking? 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 Gender Identity Not on file Sexual Orientation Not on file documented as of this encounter Plan of Treatment Not on file documented as of this encounter Procedures Procedure Name Priority Date/Time Associated Diagnosis Comments SCAN - LABS 08/30/2024 documented in this encounter Results * SCAN - LABS (08/30/2024) Bertha Hernandez MD Final Res ult documented in this encounter Visit Diagnoses Not on filedocumented in this encounter Care Teams Inserter Relationship Specialty Start Date End Date Monica Harvey PA [address] [place] [address] PCP - General Internal Medicine 01/03/24 Christiano Kidd MD Consulting Physician Urology 02/08/19 Malcom Ramirez MD Referring Physician Obstetrics and Gynecology 07/27/19 Jatin Carver MD [address] [facility] [id number] [place], [place] [id number] Medical Oncologist Gynecologic Oncology 08/25/19 Adryan Carver MD [address] [facility] [id number] [place] [address] Surgeon General Surgery 08/25/19 Tracie Raphael MD [address] [facility] [id number] [place] [address] Medical Oncologist/Ammonia Refrigeration Worker Medical Oncology 09/08/19 Jatin Giron MD [address] [facility] [id number] [place] [address] Consulting Physician Family Medicine 02/11/20 documented as of this encounter
--- OUTSIDE RECORDS SUMMARY | 2025-03-09 08:04 | XMS_ITS | Encounter Summary ---
Author Organization [facility] Facility Care Team Providers Care Oncology Account Specialist Name Role Phone Monica Harvey Primary Care Provider [phone] Christiano Kidd MD Unavailable [phone] Malcom Ramirez MD Unavailable [phone] Jatin Carver MD Unavailable [phone] Adryan Carver MD Unavailable [phone] Lynette Villela MD Unavailable [phone] Jatin Giron MD Primary Care Provider [phone] Jatin Giron MD Primary Care Provider [phone] Tracie Raphael MD Unavailable [phone] Monica Harvey Primary Care Provider [phone] Jatin Giron MD Unavailable [phone] Jatin Giron MD Primary Care Provider [phone] Monica Harvey Primary Care Provider [phone] Encounter Details Date Type Department Care Team (Latest Contact Info) Description 11/19/2016 Orders Only [facility] Provider, MD Glenn [address] [place] [address] Social History Tobacco Use Types Packs/Day Years Used Date Smoking Tobacco: Never Assessed Comments Unknown Sex and Gender Information Value Date Recorded Sex Assigned at Not on file Legal Sex Female 11:59 PM CUPOLA PATCHER Gender Identity Not on file Sexual Orientation Not on file documented as of this encounter Plan of Treatment Not on file documented as of this encounter Procedures Procedure Name Priority Date/Time Associated Diagnosis Comments SCAN - LABS 09/18/2017 12:00 AM CUPOLA PATCHER documented in this encounter Results * SCAN - LABS (09/18/2017 12:00 AM CUPOLA PATCHER) Narrative 09/18/2017 12:00 AM CUPOLA PATCHER Ordered by an unspecified provider. us Historical Provider Final Res ult documented in this encounter Visit Diagnoses Not on filedocumented in this encounter Additional Health Concerns Infection Onset Date Last Indicated Resolved Time COVID: Suspected 09/11/2020 09/11/2020 09/13/2020 4:02 PM CUPOLA PATCHER COVID19 09/12/2020 09/12/2020 09/26/2020 3:07 AM CUPOLA PATCHER COVID: Recovered Comment:Added based on recent COVID infection. 09/26/2020 10/02/2020 01/24/2021 3:05 AM C DT documented as of this encounter Care Teams Oncology Account Specialist Relationship Specialty Start Date End Date Monica Harvey PA [address] [place] [address] PCP - General Internal Medicine 10/06/18 08/25/19 Jatin Giron MD [address] [facility] [id number] [place] [address] PCP - General Family Medicine 08/26/19 08/26/19 Jatin Giron MD [address] [facility] [id number] [place] [address] PCP - General 08/27/19 09/12/19 Monica Harvey PA [address] [place] [address] PCP - General Internal Medicine 09/13/19 12/30/23 Jatin Giron MD [address] [facility] [id number] [place] [address] PCP - General Family Medicine 12/31/23 01/02/24 Monica Harvey PA [address] [place] [address] PCP - General Internal Medicine 01/03/24 Christiano Kidd MD [address] [place] [address] Consulting Physician Urology 02/08/19 Malcom Ramirez MD [address] [place] [address] Referring Physician Obstetrics and Gynecology 07/27/19 Jatin Carver MD [address] [facility] [id number] [place] [address] Medical Oncologist Gynecologic Oncology 08/25/19 Adryan Carver MD [address] [facility] [id number] [place] [address] Surgeon General Surgery 08/25/19 Lynette Villela MD [address] [facility] [id number] [place] [address] Radiation Oncologist Radiation Oncology 08/25/19 Tracie Raphael MD [address] [facility] [id number] [place] [address] Medical Oncologist/Dry Cell Sealer Medical Oncology 09/08/19 Jatin Giron MD [address] [facility] [id number] [place] [address] Consulting Physician Family Medicine 02/11/20 documented as of this encounter
--- OUTSIDE RECORDS SUMMARY | 2025-03-09 08:04 | XMS_ITS ---
Author Organization [facility] [place] [address] Address [address] [place] [address] Care Team Providers Care Technology Coordinator Name Role Phone Christiano Kidd MD Unavailable [phone] Malcom Ramirez MD Unavailable [phone] Jatin Carver MD Unavailable [phone] Adryan Carver MD Unavailable [phone] Tracie Raphael MD Unavailable [phone] Jatin Giron MD Unavailable [phone] Monica Harvey Primary Care Provider [phone] Active Problems Problem Noted Date Diagnosed Date [...] - Lab work has been sent to [facility] for you to get your B12 and folate levels checked Assessment & Plan (08/29/2024 8:09 PM TV NEWS DIRECTOR): 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 Continue gabapentin 800 t.i.d. in the Cymbalta 60 mg b.i.d. she is also on B12 supplementation Need for influenza vaccination 08/29/2024 Assessment & Plan (08/29/2024 8:09 PM TV NEWS DIRECTOR): Flu vaccine updated in the office today Medicare annual wellness visit, subsequent 08/29 Assessment & Plan (08/29/2024 8:09 PM TV NEWS DIRECTOR): Encouraged healthy lifestyle, good nutrition and exercise. [...] 08/25/2023 Assessment & Plan (08/25/2023 2:29 PM TV NEWS DIRECTOR): This is a significant, separately identifiable problem [...] as her mom's walker. X-rays done at [facility] were negative. Has an appointment with Orthopedics but hoping to get MRI prior to that visit due to possible derangement of the internal working of the knee. Suspect meniscus verses PCL tear. Will place order for MRI right knee to be done at [facility]. Vitamin D deficiency 08/25/2023 Assessment & Plan (12/27/2023 1:07 AM CDT): Supplement Assessment & Plan (08/25/2023 2:29 PM TV NEWS DIRECTOR): Supplement Annual physical exam 12/22/2022 Assessment & [...] 09/15/2021 Assessment & Plan (09/15/2021 11:21 PM TV NEWS DIRECTOR): Referral to orthopedics for this fracture. Continue [...] 11/27/2020 Assessment & Plan (11/27/2020 9:20 PM TV NEWS DIRECTOR): This is a significant, separately identifiable problem that was evaluated and managed on the same day as the wellness exam Per patient - following with Ortho Dr. Perez. He has encouraged PT for RC tear. She has been resistant but willing. Order provided. [facility] referral sent. Fatigue 11/27/2020 Assessment & Plan (08/25/2023 2:28 PM TV NEWS DIRECTOR): Probably multifactorial. Check labs and followup to re-evaluate Assessment & Plan (12/22/2022 9:35 AM CDT): Probably multifactorial. Check labs and followup to re-evaluate Assessment & Plan (06/23/2022 6:44 PM CDT): Probably multifactorial. Check labs and followup to re-evaluate Assessment & Plan (04/08/2021 12:04 AM CDT): Probably multifactorial. Check labs and followup to re-evaluate Assessment & Plan (11/27/2020 9:20 PM TV NEWS DIRECTOR): Probably multifactorial. 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 Assessment & Plan (09/15/2021 11:21 PM TV NEWS DIRECTOR): Continue per Oncology. She is under close surveillance Assessment & Plan (04/08/2021 12:03 AM CDT): Continue per ONC Active surveillance Assessment & Plan (11/27/2020 9:16 PM TV NEWS DIRECTOR): Continue per ONC Has imaging for close monitoring in december Assessment & Plan (09/17/2020 9:46 AM TV NEWS DIRECTOR): Active treatment/surveillance with the oncologist. 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 Imaging today. Continue with close monitoring Assessment & Plan (01/26/2020 9:53 PM CDT): Continue per ONC BMI 27.0-27.9,adult 08/16/2019 Overview (08/16/2024): Weight/BMI is in healthy range. Continue healthy lifestyle to maintain. Assessment & Plan (08/29/2024 8:08 PM TV NEWS DIRECTOR): Weight/BMI is in healthy range. Continue healthy lifestyle to maintain. Assessment & Plan (01/03/2024 3:50 PM CDT): Weight/BMI is in healthy range. Continue healthy lifestyle to maintain. Assessment & Plan (12/27/2023 1:08 AM CDT): Weight/BMI is in healthy range. Continue healthy lifestyle to maintain. Assessment & Plan (08/25/2023 2:27 PM TV NEWS DIRECTOR): Weight/BMI is in healthy range. Continue healthy lifestyle to maintain. Assessment & Plan (05/31/2020 9:17 AM CDT): Weight/BMI is in healthy range. Continue healthy lifestyle to maintain. Assessment & Plan (08/16/2019 2:34 PM TV NEWS DIRECTOR): Weight/BMI is in healthy range. 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 [...] vitamin-D. Assessment & Plan (09/15/2021 11:21 PM TV NEWS DIRECTOR): Continue Fosamax weekly calcium and vitamin-D. Continue to monitor DEXA. Assessment & Plan (06/05/2021 11:05 AM CDT): Check DXA Assessment & Plan (04/08/2021 12:04 AM CDT): Continue Fosamax Assessment & Plan (11/27/2020 9:17 PM TV NEWS DIRECTOR): Continue Fosamax, calcium and Vit D. DXA [...] US. 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 Controlled type 2 diabetes ajay perkins with complication, without long-term current use of [...] intake Assessment & Plan (08/29/2024 8:07 PM TV NEWS DIRECTOR): Stressed importance of continued A1c control to minimize the fdc effects of diabetes. Bring accuchecks to office [...] of continued A1c control to minimize the fdc effects of diabetes. Bring accuchecks to office [...] of continued A1c control to minimize the fdc effects of diabetes. Bring accuchecks to office when instructed to do so. Check A1c about every 3-6 months. Take medication as prescribed. Get annual eye exam. Encouraged PADMINI/Statin if able to tolerate. Encouraged weight control and encouraged diabetic diet and exercise. Continue metformin b.i.d. Assessment & Plan (06/23/2022 6:39 PM CDT): Stressed importance of continued A1c control to minimize the fdc effects of diabetes. Bring accuchecks to office when instructed to do so. Check A1c about every 3-6 months. Take medication as prescribed. Get annual eye exam. Encouraged PADMINI/Statin if able to tolerate. Encouraged weight control and encouraged diabetic diet and exercise. . Continue metformin 500 b.i.d. Assessment & Plan (12/16/2021 10:22 AM CDT): Stressed importance of continued A1c control to minimize the fdc effects of diabetes. Bring accuchecks to office when instructed to do so. Check A1c about every 3-6 months. Take medication as prescribed. Get annual eye exam. Encouraged PADMINI/Statin if able to tolerate. Encouraged weight control and encouraged diabetic diet and exercise. Assessment & Plan (06/05/2021 10:58 AM CDT): Stressed importance of continued A1c control to minimize the fdc effects of diabetes. Bring accuchecks to office when instructed to do so. Check A1c about every 3-6 months. Take medication as prescribed. Get annual eye exam. Encouraged PADMINI/Statin if able to tolerate. Encouraged weight control and encouraged diabetic diet and exercise. Continue metformin Assessment & Plan (04/08/2021 12:02 AM CDT): Stressed importance of continued A1c control to minimize the fdc effects of diabetes. Bring accuchecks to office when instructed to do so. Check A1c about every 3-6 months. Take medication as prescribed. Get annual eye exam. Encouraged PADMINI/Statin if able to tolerate. Encouraged weight control and encouraged diabetic diet and exercise. Assessment & Plan (11/27/2020 9:17 PM TV NEWS DIRECTOR): Stressed importance of continued A1c control to minimize the fdc effects of diabetes. Bring accuchecks to office when instructed to do so. Check A1c about every 3-6 months. Take medication as prescribed. Get annual eye exam. Encouraged PADMINI/Statin if able to tolerate. Encouraged weight control and encouraged diabetic diet and exercise. Due for labs to determine control Assessment & Plan (05/31/2020 9:15 AM CDT): Stressed importance of continued A1c control to minimize the fdc effects of diabetes. Bring accuchecks to office when instructed to do so. Check A1c about every 3-6 months. Take medication as prescribed. Get annual eye exam. Encouraged PADMINI/Statin if able to tolerate. Encouraged weight control and encouraged diabetic diet and exercise. Due for labs Assessment & Plan (01/26/2020 9:53 PM CDT): Stressed importance of continued A1c control to minimize the fdc effects of diabetes. Bring accuchecks to office when instructed to do so. Check A1c about every 3-6 months. Take medication as prescribed. Get annual eye exam. Encouraged PADMINI/Statin if able to tolerate. Encouraged weight control and encouraged diabetic diet and exercise. 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 Bring accuchecks to office when instructed to do so. Check A1c about every 3-6 months. Take medication as prescribed. Get annual eye exam. Encouraged PADMINI/Statin if able to tolerate. Encouraged weight control and encouraged diabetic diet and exercise. Check labs Assessment & Plan (05/15/2019 3:12 PM CDT): Stressed importance of continued A1c control to minimize the exterminator helper termite effects of diabetes. Bring accuchecks to office when instructed to do so. Check A1c about every 3-6 months. Take medication as prescribed. Get annual eye exam. Encouraged PADMINI/Statin if able to tolerate. Encouraged weight control and encouraged diabetic diet and exercise. Assessment & Plan (02/21/2019 5:15 PM CDT): Stressed importance of continued A1c control to minimize the exterminator helper termite effects of diabetes. Bring accuchecks to office [...] alcohol Assessment & Plan (08/29/2024 8:07 PM TV NEWS DIRECTOR): Encouraged patient to follow low fat/low chol diet like the Mediterranean diet. Increase good fats in the diet. Increase exercise. Monitor labs as needed. Continue Crestor Assessment & Plan (12/27/2023 1:06 AM CDT): Stressed importance of continued A1c control to minimize the exterminator helper termite effects of diabetes. Bring accuchecks to office [...] 10 Assessment & Plan (08/25/2023 2:26 PM TV NEWS DIRECTOR): Stressed importance of continued A1c control to minimize the fdc effects of diabetes. Bring accuchecks to office [...] of continued A1c control to minimize the exterminator helper termite effects of diabetes. Bring accuchecks to office [...] statin Assessment & Plan (11/27/2020 9:18 PM TV NEWS DIRECTOR): Encouraged patient to follow fat/low chol diet [...] consumption Assessment & Plan (08/29/2024 8:07 PM TV NEWS DIRECTOR): Bp is stable/in acceptable range for any co-morbidities. Encouraged to limit sodium intake and exercise for weight control. Stressed importance of continued A1c control to minimize the exterminator helper termite effects of diabetes. Bring accuchecks to office [...] of continued A1c control to minimize the fdc effects of diabetes. Bring accuchecks to office when instructed to do so. Check A1c about every 3-6 months. Take medication as prescribed. Get annual eye exam. Encouraged PADMINI/Statin if able to tolerate. Encouraged weight control and encouraged diabetic diet and exercise. Continue lisinopril Assessment & Plan (08/25/2023 2:26 PM TV NEWS DIRECTOR): Bp is stable/in acceptable range for any [...] lisinopril Assessment & Plan (09/15/2021 11:19 PM TV NEWS DIRECTOR): Bp is stable/in acceptable range for any co-morbidities. Encouraged to limit sodium intake and exercise for weight control. Continue with lisinopril Stressed importance of continued A1c control to minimize the fdc effects of diabetes. Bring accuchecks to office [...] lisinopril Assessment & Plan (11/27/2020 9:16 PM TV NEWS DIRECTOR): Bp is stable/in acceptable range for any [...] gabapentin Assessment & Plan (08/25/2023 2:27 PM TV NEWS DIRECTOR): Persistent neuropathy that really intensified when on [...] monitor. Assessment & Plan (09/15/2021 11:20 PM TV NEWS DIRECTOR): Using gabapentin 800 mg t.i.d. and Cymbalta [...] of continued A1c control to minimize the exterminator helper termite effects of diabetes. Bring accuchecks to office when instructed to do so. Check A1c about every 3-6 months. Take medication as prescribed. Get annual eye exam. Encouraged PADMINI/Statin if able to tolerate. Encouraged weight control and encouraged diabetic diet and exercise. Continue gabapentin Assessment & Plan (11/27/2020 9:15 PM TV NEWS DIRECTOR): Stressed importance of continued A1c control to minimize the fdc effects of diabetes. Bring accuchecks to office [...] Cymbalta Assessment & Plan (08/16/2019 10:49 PM TV NEWS DIRECTOR): Stable with gabapentin 600mg tid. Will send [...] of continued A1c control to minimize the exterminator helper termite effects of diabetes. Bring accuchecks to office [...] monitor. Assessment & Plan (08/29/2024 8:08 PM TV NEWS DIRECTOR): Depression symptoms are stable with Cymbalta Assessment & Plan (12/27/2023 1:06 AM CDT): Stable with Cymbalta Assessment & Plan (12/22/2022 9:33 AM CDT): Continue Cymbalta Assessment & Plan (06/23/2022 6:41 PM CDT): Continue Cymbalta Assessment & Plan (09/15/2021 11:20 PM TV NEWS DIRECTOR): Continue the Cymbalta Assessment & Plan (06/05/2021 11:05 AM CDT): Continue Cymbalta. Assessment & Plan (04/08/2021 12:03 AM CDT): Stable with cymbalta Assessment & Plan (11/27/2020 9:18 PM TV NEWS DIRECTOR): Continue cymbalta Assessment & Plan (05/31/2020 9:16 [...] prescribed Assessment & Plan (08/29/2024 8:08 PM TV NEWS DIRECTOR): Continue levothyroxine. Monitor labs. Assessment & Plan (12/27/2023 1:06 AM CDT): Continue levothyroxine. Monitor labs. Assessment & Plan (08/25/2023 2:27 PM TV NEWS DIRECTOR): Continue levothyroxine. Monitor labs. Assessment & Plan (12/22/2022 9:33 AM CDT): Continue levothyroxine. Monitor labs. Assessment & Plan (06/23/2022 6:41 PM CDT): Continue levothyroxine. Monitor labs. Assessment & Plan (12/16/2021 10:23 AM CDT): Continue Cymbalta Assessment & Plan (09/15/2021 11:20 PM TV NEWS DIRECTOR): Continue levothyroxine Assessment & Plan (06/05/2021 10:52 AM CDT): Continue levothyroxine. Monitor labs. Assessment & Plan (04/08/2021 12:02 AM CDT): Continue levothyroxine. Monitor labs. Assessment & Plan (11/27/2020 9:17 PM TV NEWS DIRECTOR): Continue levothyroxine Assessment & Plan (05/31/2020 9:15 AM CDT): Check labs Continue levothyroxine Assessment & Plan (01/26/2020 9:53 PM CDT): Check labs. Continue levothyroxine Assessment & Plan (06/30/2019 12:07 AM CDT): Check labs Assessment & Plan (05/15/2019 3:12 PM CDT): Stable. Continue levothyroxine Assessment & Plan (02/21/2019 5:15 PM CDT): Check labs. Continue the levothyroxine Current Treatment and Therapy Plans No current plan information found. Past Treatment and Therapy Plans Line Care Plan Name Start Date Discontinue Date Treatment Medications Discontinue Reason Plan Provider IV MAINTENANCE THERAPY PLAN 11/30/2019 12/16/2023 No medications scheduled. Automatic discontinuation of dormant plans Tracie Raphael MD Oncology Chemotherapy Treatment Plan Name Start Date Discontinue Date Treatment Medications Discontinue Reason Plan Provider Cycles [id number]: (Fluorouracil / Leucovorin / Oxaliplatin) 14 Day Cycles - GI 9 04/20/2020 fluorouracil (ADRUCIL)fluorou racil (ADRUCIL) infusion - for home infusion (ADRUCIL)leucovo rin IVPB in 250 mLoxaliplatin (ELOXATIN) IVPB Therapy Complete Tracie Raphael MD 12 of 12 cycles started Oncology Supportive Care Therapy Plan Plan Name Start Date Discontinue Date Treatment Medications Discontinue Reason Plan Provider Hydration Therapy Plan 12/03/2019 12/16/2023 No medications scheduled. Automatic discontinuation of dormant plans Tracie Raphael MD Lifetime Dose Tracking * Chemical Lifetime Dose Automatic Entry Manual Entr y Fluoro Time 0.667 minutes 0.667 minutes 0 minutes Air kerma at the reference point (Ka,r) 2.73 mGy 2 .73 mGy 0 mGy DLP 5,051 mGycm 5,051 mGycm 0 mGycm Resolved Problems Problem Noted Date Diagnosed Date Resolved Date Positive depression screening 12/30/2023 01/03/2024 Need for influenza vaccination 08/25/2023 12/27/2023 Assessment & Plan (08/25/2023 2:29 PM TV NEWS DIRECTOR): Flu vaccine updated in the office today Medicare annual wellness visit, subsequent 06/10/2023 12/27/2023 Assessment & Plan (08/25/2023 2:25 PM TV NEWS DIRECTOR): Encouraged healthy lifestyle, good nutrition and exercise. Encouraged Calcium and Vitamin D and weight bearing exercise for bone health. Reviewed immunizations. Reviewed age appropirate screenings. Medicare Wellness Documentation is completed within the chart BMI 28.0-28.9,adult 12/10/2022 12/27/19 24 Assessment & Plan (12/10/2022 10:07 AM TV NEWS DIRECTOR): Weight/BMI is in healthy range. Continue healthy lifestyle. BMI 28.0-28.9,adult 06/22/2022 12/11/19 Assessment & Plan (06/23/2022 6:45 PM CDT): Weight/BMI is in healthy range. Continue healthy lifestyle to maintain. Neuropathy due to type 2 diabetes mellitus 12/16/2021 12/16/2021 Hyperlipidemia 12/16/2021 12/16/2021 Flu vaccine need 09/15/2021 06/22/2022 Assessment & Plan (09/15/2021 11:21 PM TV NEWS DIRECTOR): Flu vaccine updated in office BMI 29.0-29.9,adult 09/05/2021 06/22/20 22 Assessment & Plan (12/16/2021 10:24 AM CDT): Weight/BMI is in healthy range. Continue healthy lifestyle to maintain. Assessment & Plan (09/05/2021 1:24 PM TV NEWS DIRECTOR): Weight/BMI is in healthy range. Continue healthy lifestyle to maintain. BMI 27.0-27.9,adult 06/20/2021 09/05/20 21 Assessment & Plan (06/20/2021 11:19 AM CDT): Obesity is unchanged. Discussed the patient's BMI. The BMI is above average. BMI management plan is completed. BMI Follow-up includes: nutrition counseling, exercise counseling and education provided. BMI 26.0-26.9,adult 06/05/2021 06/20/20 21 Assessment & Plan (06/05/2021 9:38 AM CDT): [...] (04/08/2021 12:05 AM CDT): Check labs Claudication ([facility]) 04/07/202112/09 Assessment & Plan (04/08/2021 12:00 AM CDT): Leg pain seem consistent with claudication. Recommend GERA study. Prefers at [place] BMI 27.0-27.9,adult 11/27/2020 04/06/20 21 Assessment & Plan (11/27/2020 8:38 AM TV NEWS DIRECTOR): Weight/BMI is in healthy range. Continue healthy lifestyle to maintain. Hyperlipidemia 11/27/2020 04/07/2021 Annual physical exam 11/24/2020 022 Assessment & Plan (12/16/2021 10:24 AM CDT): Encouraged healthy lifestyle, good nutrition and exercise. Encouraged Calcium and Vitamin D and weight bearing exercise for bone health. Reviewed immunizations Reviewed age appropirate screenings. Assessment & Plan (11/27/2020 9:18 PM TV NEWS DIRECTOR): Encouraged healthy lifestyle, good nutrition and exercise. Encouraged Calcium and Vitamin D and weight bearing exercise for bone health. Reviewed immunizations Reviewed age appropirate screenings. Nasal congestion 09/11/2020 02/07/2025 Assessment & Plan (09/17/2020 9:47 AM TV NEWS DIRECTOR): Discussed symptoms with patient. With COVID in the community it would not be wrong to test but her symptoms seem most consistent with a cold/allergies at this point. Recommend [id number] treatment and supportive therapy. If she starts running fever chills sweats notes change in her taste or smell, starts noticing a cough or a progression in symptoms she is to call and we will set her up for testing. She is in agreement with this plan. Assessment & Plan (09/11/2020 2:09 PM TV NEWS DIRECTOR): Will send patient to [place] for Covid-19 testing. The patient was advised to quarantine at least 10 days from symptom onset, but this determination will depend on result of testing. They were advised to contact us in the next 72h if they have not heard results of testing. They were advised to report to the ER if worsening. Fever 09/11/2020 11/27/2020 Assessment & Plan (09/11/2020 2:10 PM TV NEWS DIRECTOR): Will send patient to [place] for Covid-19 testing. The patient was advised [...] (07/27/2019): Added automatically from request for surgery [id number] Other fatigue 06/30/2019 05/31/2020 BMI 28.0-28.9,adult 02/08/2019 08/16/20 19 Assessment & Plan (06/29/2019 4:00 PM CDT): [...]
--- OUTSIDE RECORDS SUMMARY | 2025-03-09 08:04 | XMS_ITS | Referral Summary ---
Author Organization [facility] [address] [facility] Address [address] [place] [address] Care Team Providers Care Employee Communications Specialist Name Role Phone Christiano Kidd MD Unavailable [phone] Malcom Ramirez MD Unavailable Jatin Carver MD Unavailable [phone] Adryan Carver MD Unavailable [phone] Tracie Raphael MD Unavailable [phone] Jatin Giron MD Unavailable [phone] Monica Harvey Primary Care Provider [phone] Encounters Date Type Department Care Team Description 02/07/2025 10:00 AM CDT Office Visit [facility] Family Medicine [address] [facility] [address] [place] [phone] Monica Harvey PA Annual physical exam (Primary [...] (HCC); Menopause; BMI 26.0-26.9,adult 02/05/2025 Results Follow-Up [facility] [address] [place] [address] Monica Harvey PA Comprehensive metabolic panel, Lipid panel, TSH, Additional followed-up results: 3 02/03/2025 Results Follow-Up [facility] Gastroenterology at [address] [phone] Yordy Melgar MD Surgical pathology 02/02/2025 Nurse Triage [address] [place] [address] Jeny Salas RN 02/01/2025 10:49 AM CDT Anesthesia Event [facility] [address] [place] [address] Yoni Gaona MD 02/01/2025 10:00 AM CDT - 02/01/2025 10:30 AM CDT Surgery [facility] [address] [place] [address] Yordy Melgar MD COLON REMOVAL SNARE 02/01/2025 8:52 AM CDT - 02/01/2025 12:13 PM CDT Hospital Encounter [facility] [address] [place] [phone] oYrdy Melgra MD Screening for colon cancer; Family history of colon cancer Discharge Disposition: Discharge to home or self care 01/24/2025 Orders Only [facility] Medicine [address] [place] [address] [address] [place] [address] Monica Harvey PA Hypertension associated with diabetes (HCC) (Primary Dx); Acquired hypothyroidism; Controlled type 2 diabetes mellitus with complication, without long-term current use of insulin (HCC); Vitamin D deficiency; Type 2 diabetes mellitus with hyperlipidemia (HCC) 01/18/2025 10:15 AM CDT Lab [facility] at [address] [address] 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) Discharge Disposition: Discharge to home or self care 01/12/2025 7:58 AM CDT - 01/12/2025 11:59 PM CDT Hospital Encounter [facility] CT [address] [place] [address] 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) Discharge Disposition: Discharge to home or self care 01/12/2025 7:58 AM CDT - 01/12/2025 11:59 PM CDT Hospital Encounter [facility] CT [address] [place] [address] 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 Continue gabapentin 800 t.i.d. in the Cymbalta 60 mg b.i.d. she is also on B12 supplementation Need for influenza vaccination 08/29/2024 Assessment & Plan (08/29/2024 8:09 PM SOLUTION DIRECTOR): Flu vaccine updated in the office today Medicare annual wellness visit, subsequent 08/29 Assessment & Plan (08/29/2024 8:09 PM SOLUTION DIRECTOR): Encouraged healthy lifestyle, good nutrition and [...] 08/25/2023 Assessment & Plan (08/25/2023 2:29 PM SOLUTION DIRECTOR): This is a significant, separately identifiable [...] as her mom's walker. X-rays done at [facility] were negative. Has an appointment with Orthopedics but hoping to get MRI prior to that visit due to possible derangement of the internal working of the knee. Suspect meniscus verses PCL tear. Will place order for MRI right knee to be done at [facility]. Vitamin D deficiency 08/25/2023 Assessment & Plan (12/27/2023 1:07 AM CDT): Supplement Assessment & Plan (08/25/2023 2:29 PM SOLUTION DIRECTOR): Supplement Annual physical exam 12/22/2022 Assessment [...] 09/15/2021 Assessment & Plan (09/15/2021 11:21 PM SOLUTION DIRECTOR): Referral to orthopedics for this fracture. [...] 11/27/2020 Assessment & Plan (11/27/2020 9:20 PM SOLUTION DIRECTOR): This is a significant, separately identifiable problem that was evaluated and managed on the same day as the wellness exam Per patient - following with Ortho Dr. Perez. He has encouraged PT for RC tear. She has been resistant but willing. Order provided. [facility]ence referral sent. Fatigue 11/27/2020 Assessment & Plan (08/25/2023 2:28 PM SOLUTION DIRECTOR): Probably multifactorial. Check labs and followup to re-evaluate Assessment & Plan (12/22/2022 9:35 AM CDT): Probably multifactorial. Check labs and followup to re-evaluate Assessment & Plan (06/23/2022 6:44 PM CDT): Probably multifactorial. Check labs and followup to re-evaluate Assessment & Plan (04/08/2021 12:04 AM CDT): Probably multifactorial. Check labs and followup to re-evaluate Assessment & Plan (11/27/2020 9:20 PM SOLUTION DIRECTOR): Probably multifactorial. Check labs and followup to re-evaluate LFT elevation 08/15/2020 Breast cancer screening by mammogram 05/31/2020 Assessment & Plan (12/27/2023 1:08 AM CDT): Mammogram order provided Assessment & Plan (08/25/2023 2:28 PM SOLUTION DIRECTOR): Mammogram order provided Assessment & Plan [...] PPI Assessment & Plan (11/27/2020 9:16 PM SOLUTION DIRECTOR): Continue PPI Assessment & Plan (05/31/2020 [...] relief Assessment & Plan (11/27/2020 9:19 PM SOLUTION DIRECTOR): Continue flonase/antihistamine prn Assessment & Plan [...] month. Assessment & Plan (09/15/2021 11:21 PM SOLUTION DIRECTOR): Continue per Oncology. She is under close surveillance Assessment & Plan (04/08/2021 12:03 AM CDT): Continue per ONC Active surveillance Assessment & Plan (11/27/2020 9:16 PM SOLUTION DIRECTOR): Continue per ONC Has imaging for close monitoring in december Assessment & Plan (09/17/2020 9:46 AM SOLUTION DIRECTOR): Active treatment/surveillance with the oncologist. 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 Imaging today. Continue with close monitoring Assessment & Plan (01/26/2020 9:53 PM CDT): Continue per ONC BMI 27.0-27.9,adult 08/16/2019 Overview (08/16/2024): Weight/BMI is in healthy range. Continue healthy lifestyle to maintain. Assessment & Plan (08/29/2024 8:08 PM SOLUTION DIRECTOR): Weight/BMI is in healthy range. Continue healthy lifestyle to maintain. Assessment & Plan (01/03/2024 3:50 PM CDT): Weight/BMI is in healthy range. Continue healthy lifestyle to maintain. Assessment & Plan (12/27/2023 1:08 AM CDT): Weight/BMI is in healthy range. Continue healthy lifestyle to maintain. Assessment & Plan (08/25/2023 2:27 PM SOLUTION DIRECTOR): Weight/BMI is in healthy range. Continue healthy lifestyle to maintain. Assessment & Plan (05/31/2020 9:17 AM CDT): Weight/BMI is in healthy range. Continue healthy lifestyle to maintain. Assessment & Plan (08/16/2019 2:34 PM SOLUTION DIRECTOR): Weight/BMI is in healthy range. Continue [...] surveillance Assessment & Plan (08/16/2019 10:49 PM SOLUTION DIRECTOR): Still awaiting recommendations as vaginal mass [...] September Assessment & Plan (08/29/2024 8:08 PM SOLUTION DIRECTOR): Patient with osteopenia of the lumbar [...] vitamin-D. Assessment & Plan (09/15/2021 11:21 PM SOLUTION DIRECTOR): Continue Fosamax weekly calcium and vitamin-D. Continue to monitor DEXA. Assessment & Plan (06/05/2021 11:05 AM CDT): Check DXA Assessment & Plan (04/08/2021 12:04 AM CDT): Continue Fosamax Assessment & Plan (11/27/2020 9:17 PM SOLUTION DIRECTOR): Continue Fosamax, calcium and Vit D. [...] US. If persistent, may consider referral to [facility] HSV (herpes simplex virus) infection 02/08/2019 Overview [...] intake Assessment & Plan (08/29/2024 8:07 PM SOLUTION DIRECTOR): Stressed importance of continued A1c control to minimize the group home effects of diabetes. 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 Bring accuchecks to office [...] of continued A1c control to minimize the group home effects of diabetes. Bring accuchecks to office when instructed to do so. Check A1c about every 3-6 months. Take medication as prescribed. Get annual eye exam. Encouraged PADMINI/Statin if able to tolerate. Encouraged weight control and encouraged diabetic diet and exercise. Continue metformin b.i.d. Assessment & Plan (06/23/2022 6:39 PM CDT): Stressed importance of continued A1c control to minimize the group home effects of diabetes. Bring accuchecks to office when instructed to do so. Check A1c about every 3-6 months. Take medication as prescribed. Get annual eye exam. Encouraged PADMINI/Statin if able to tolerate. Encouraged weight control and encouraged diabetic diet and exercise. . Continue metformin 500 b.i.d. 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 Bring accuchecks to office when instructed to do so. Check A1c about every 3-6 months. Take medication as prescribed. Get annual eye exam. Encouraged PADMINI/Statin if able to tolerate. Encouraged weight control and encouraged diabetic diet and exercise. 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 Bring accuchecks to office when instructed to do so. Check A1c about every 3-6 months. Take medication as prescribed. Get annual eye exam. Encouraged PADMINI/Statin if able to tolerate. Encouraged weight control and encouraged diabetic diet and exercise. 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 Bring accuchecks to office when instructed to do so. Check A1c about every 3-6 months. Take medication as prescribed. Get annual eye exam. Encouraged PADMINI/Statin if able to tolerate. Encouraged weight control and encouraged diabetic diet and exercise. 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 Bring accuchecks to office when instructed to do so. Check A1c about every 3-6 months. Take medication as prescribed. Get annual eye exam. Encouraged PADMINI/Statin if able to tolerate. Encouraged weight control and encouraged diabetic diet and exercise. Due for labs to determine control Assessment & Plan (05/31/2020 9:15 AM CDT): Stressed importance of continued A1c control to minimize the group home effects of diabetes. Bring accuchecks to office when instructed to do so. Check A1c about every 3-6 months. Take medication as prescribed. Get annual eye exam. Encouraged PADMINI/Statin if able to tolerate. Encouraged weight control and encouraged diabetic diet and exercise. Due for labs Assessment & Plan (01/26/2020 9:53 PM CDT): Stressed importance of continued A1c control to minimize the group home effects of diabetes. Bring accuchecks to office when instructed to do so. Check A1c about every 3-6 months. Take medication as prescribed. Get annual eye exam. Encouraged PADMINI/Statin if able to tolerate. Encouraged weight control and encouraged diabetic diet and exercise. 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 Bring accuchecks to office when instructed to do so. Check A1c about every 3-6 months. Take medication as prescribed. Get annual eye exam. Encouraged PADMINI/Statin if able to tolerate. Encouraged weight control and encouraged diabetic diet and exercise. 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 Bring accuchecks to office when instructed to do so. Check A1c about every 3-6 months. Take medication as prescribed. Get annual eye exam. Encouraged PADMINI/Statin if able to tolerate. Encouraged weight control and encouraged diabetic diet and exercise. Assessment & Plan (02/21/2019 5:15 PM CDT): Stressed importance of continued A1c control to minimize the group home effects of diabetes. Bring accuchecks to office [...] alcohol Assessment & Plan (08/29/2024 8:07 PM SOLUTION DIRECTOR): Encouraged patient to follow low fat/low chol diet like the Mediterranean diet. Increase good fats in the diet. Increase exercise. Monitor labs as needed. 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 Bring accuchecks to office [...] statin Assessment & Plan (11/27/2020 9:18 PM SOLUTION DIRECTOR): Encouraged patient to follow fat/low chol [...] consumption Assessment & Plan (08/29/2024 8:07 PM SOLUTION DIRECTOR): Bp is stable/in acceptable range for any co-morbidities. Encouraged to limit sodium intake and exercise for weight control. Stressed importance of continued A1c control to minimize the group home effects of diabetes. Bring accuchecks to office [...] of continued A1c control to minimize the group home effects of diabetes. Bring accuchecks to office when instructed to do so. Check A1c about every 3-6 months. Take medication as prescribed. Get annual eye exam. Encouraged PADMINI/Statin if able to tolerate. Encouraged weight control and encouraged diabetic diet and exercise. Continue lisinopril Assessment & Plan (08/25/2023 2:26 PM SOLUTION DIRECTOR): Bp is stable/in acceptable range for [...] lisinopril Assessment & Plan (09/15/2021 11:19 PM SOLUTION DIRECTOR): Bp is stable/in acceptable range for any co-morbidities. Encouraged to limit sodium intake and exercise for weight control. 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 Bring accuchecks to office [...] lisinopril Assessment & Plan (11/27/2020 9:16 PM SOLUTION DIRECTOR): Bp is stable/in acceptable range for [...] gabapentin Assessment & Plan (08/25/2023 2:27 PM SOLUTION DIRECTOR): Persistent neuropathy that really intensified when [...] monitor. Assessment & Plan (09/15/2021 11:20 PM SOLUTION DIRECTOR): Using gabapentin 800 mg t.i.d. 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 Bring accuchecks to office when instructed to do so. Check A1c about every 3-6 months. Take medication as prescribed. Get annual eye exam. Encouraged PADMINI/Statin if able to tolerate. Encouraged weight control and encouraged diabetic diet and exercise. Continue gabapentin Assessment & Plan (11/27/2020 9:15 PM SOLUTION DIRECTOR): Stressed importance of continued A1c control to minimize the group home effects of diabetes. Bring accuchecks to office [...] Cymbalta Assessment & Plan (08/16/2019 10:49 PM SOLUTION DIRECTOR): Stable with gabapentin 600mg tid. 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 Bring accuchecks to office [...] monitor. Assessment & Plan (08/29/2024 8:08 PM SOLUTION DIRECTOR): Depression symptoms are stable with Cymbalta Assessment & Plan (12/27/2023 1:06 AM CDT): Stable with Cymbalta Assessment & Plan (12/22/2022 9:33 AM CDT): Continue Cymbalta Assessment & Plan (06/23/2022 6:41 PM CDT): Continue Cymbalta Assessment & Plan (09/15/2021 11:20 PM SOLUTION DIRECTOR): Continue the Cymbalta Assessment & Plan (06/05/2021 11:05 AM CDT): Continue Cymbalta. Assessment & Plan (04/08/2021 12:03 AM CDT): Stable with cymbalta Assessment & Plan (11/27/2020 9:18 PM SOLUTION DIRECTOR): Continue cymbalta Assessment & Plan (05/31/2020 [...] prescribed Assessment & Plan (08/29/2024 8:08 PM SOLUTION DIRECTOR): Continue levothyroxine. Monitor labs. Assessment & Plan (12/27/2023 1:06 AM CDT): Continue levothyroxine. Monitor labs. Assessment & Plan (08/25/2023 2:27 PM SOLUTION DIRECTOR): Continue levothyroxine. Monitor labs. Assessment & Plan (12/22/2022 9:33 AM CDT): Continue levothyroxine. Monitor labs. Assessment & Plan (06/23/2022 6:41 PM CDT): Continue levothyroxine. Monitor labs. Assessment & Plan (12/16/2021 10:23 AM CDT): Continue Cymbalta Assessment & Plan (09/15/2021 11:20 PM SOLUTION DIRECTOR): Continue levothyroxine Assessment & Plan (06/05/2021 10:52 AM CDT): Continue levothyroxine. Monitor labs. Assessment & Plan (04/08/2021 12:02 AM CDT): Continue levothyroxine. Monitor labs. Assessment & Plan (11/27/2020 9:17 PM SOLUTION DIRECTOR): Continue levothyroxine Assessment & Plan (05/31/2020 [...] 12/27/2023 Assessment & Plan (08/25/2023 2:29 PM SOLUTION DIRECTOR): Flu vaccine updated in the office today Medicare annual wellness visit, subsequent 06/10/2023 12/27/2023 Assessment & Plan (08/25/2023 2:25 PM SOLUTION DIRECTOR): Encouraged healthy lifestyle, good nutrition and exercise. Encouraged Calcium and Vitamin D and weight bearing exercise for bone health. Reviewed immunizations. Reviewed age appropirate screenings. Medicare Wellness Documentation is completed within the chart BMI 28.0-28.9,adult 12/10/2022 12/27/19 24 Assessment & Plan (12/10/2022 10:07 AM SOLUTION DIRECTOR): Weight/BMI is in healthy range. Continue healthy lifestyle. BMI 28.0-28.9,adult 06/22/2022 12/11/19 23 Assessment & Plan (06/23/2022 6:45 PM CDT): Weight/BMI is in healthy range. Continue healthy lifestyle to maintain. Neuropathy due to type 2 diabetes mellitus 12/16/2021 12/16/2021 Hyperlipidemia 12/16/2021 12/16/2021 Flu vaccine need 09/15/2021 06/22/2022 Assessment & Plan (09/15/2021 11:21 PM SOLUTION DIRECTOR): Flu vaccine updated in office BMI 29.0-29.9,adult 09/05/2021 06/22/20 22 Assessment & Plan (12/16/2021 10:24 AM CDT): Weight/BMI is in healthy range. Continue healthy lifestyle to maintain. Assessment & Plan (09/05/2021 1:24 PM SOLUTION DIRECTOR): Weight/BMI is in healthy range. Continue [...] (04/08/2021 12:05 AM CDT): Check labs Claudication ([facility]) 04/07/202112/09 Assessment & Plan (04/08/2021 12:00 AM CDT): Leg pain seem consistent with claudication. Recommend GERA study. Prefers at [place] BMI 27.0-27.9,adult 11/27/2020 04/06/20 Assessment & Plan (11/27/2020 8:38 AM SOLUTION DIRECTOR): Weight/BMI is in healthy range. Continue healthy lifestyle to maintain. Hyperlipidemia 11/27/2020 04/07/2021 Annual physical exam 11/24/2020 022 Assessment & Plan (12/16/2021 10:24 AM CDT): Encouraged healthy lifestyle, good nutrition and exercise. Encouraged Calcium and Vitamin D and weight bearing exercise for bone health. Reviewed immunizations Reviewed age appropirate screenings. Assessment & Plan (11/27/2020 9:18 PM SOLUTION DIRECTOR): Encouraged healthy lifestyle, good nutrition and exercise. Encouraged Calcium and Vitamin D and weight bearing exercise for bone health. Reviewed immunizations Reviewed age appropirate screenings. Nasal congestion 09/11/2020 02/07/2025 Assessment & Plan (09/17/2020 9:47 AM SOLUTION DIRECTOR): Discussed symptoms with patient. With COVID in the community it would not be wrong to test but her symptoms seem most consistent with a cold/allergies at this point. Recommend [id number] treatment and supportive therapy. If she starts running fever chills sweats notes change in her taste or smell, starts noticing a cough or a progression in symptoms she is to call and we will set her up for testing. She is in agreement with this plan. Assessment & Plan (09/11/2020 2:09 PM SOLUTION DIRECTOR): Will send patient to [facility] for Covid-19 testing. The patient was advised to quarantine at least 10 days from symptom onset, but this determination will depend on result of testing. They were advised to contact us in the next 72h if they have not heard results of testing. They were advised to report to the ER if worsening. Fever 09/11/2020 11/27/2020 Assessment & Plan (09/11/2020 2:10 PM SOLUTION DIRECTOR): Will send patient to [facility] for Covid-19 testing. The patient was advised [...] (07/27/2019): Added automatically from request for surgery [id number] Other fatigue 06/30/2019 05/31/2020 BMI 28.0-28.9,adult 02/08/2019 [...] call back to reschedule for the hematuria/dysuria. Immunizations Immunization Administration Dates Next Due Influenza, Quadrivalent, Hig h Dose, Preservative Free, Intrr 08/13/2023,07/31/2022,09/05/2021,07/17 Influenza, Trivalent, High D ose, Split, Preservative Free, Intramuscular 08/16/2024,07/21/2019,08/10/2018 Influenza, Trivalent, IM (MDV) 10/05/2012 Pfizer SARS-CoV-2 Monovalent Vaccination (12+ Yrs) PURPLE 12/22/2020,12/01/2020 Pneumococcal Conjugate PCV 13 08/10/2018 Pneumococcal Polysaccharide PPV23 09/14/2019 Tdap 11/12/2010 ZOSTER LIVE 10/05/2012 Social History Tobacco Use Types Packs/Day Years [...] on file Legal Sex Female 11:59 PM SOLUTION DIRECTOR Gender Identity Not on file Sexual Orientation Not on file Last Filed Vital Signs Vital Sign Reading [...] 02/07/2025 9:53 AM CDT Plan of Treatment Not on file Medical Devices Implanted Type Area Detention Sergeant Device Identifier Shelf Expiration Date Model / Serial / Lot Port Chest Wall Explanted Type Area Detention Sergeant Device Identifier Shelf Expiration Date Model / Serial / Lot [employer] [id number] Xcela 8fr 1.6mm 1 Lumen Power Injectable Attach Catheter Fill - [id number] Implanted:Qty: 1 on 09/08/2019 at [facility] Explanted:Qty: 1 on 01/10/2021 [employer] 04/12/2024 [id number] / / [id number] Description:IR port removal on 01/10/21 Procedures Procedure [...] -Anterior infarct -age undetermined. ABNORMAL us Monica OMALLEY ECG ORDERABLES Edited Res ult - Final [...] - 02/05/2025 4:10 PM CDT Performed at: [address] [place] [id number] Kier Hand: Maurizio Pettit PhD, Phone: [phone] Monica OMALLEY LAB URINE ORDERABLES Final Result [facility] - [facility] * Vitamin D 25 hydroxy (02/04/2025 9:03 AM CDT) Vitamin D, 25-Hydroxy 53.2 30.0 - 100.0 ng/mL [facility] - 01 Comment: Vitamin D deficiency has been defined by the [place] of Medicine and an Endocrine Society practice guideline as a level of serum 25-OH vitamin D less than 20 ng/mL (1,2). The Endocrine Society went on to further define vitamin D insufficiency as a level between 21 and 29 ng/mL (2). 1. IOM ([place] of Medicine). 2010. Dietary reference intakes for calcium and D. [place]: The National Academies Press. 2. Ela MF, Juan Carlos NC, Angella DENG, et al. Evaluation, treatment, and prevention of vitamin D deficiency: an Endocrine Society clinical practice guideline. JCEM. 2010; 96(7):1911-30. Blood 02/04/2025 9:03 AM CDT 02/04/2025 Narrative [facility] - 02/05/2025 9:36 AM CDT Performed at: [address] [id number] Kier Hand: Maurizio Pettit PhD, Phone: [phone] Monica OMALLEY LAB BLOOD ORDERABLES Final Result Performing Organization Address [facility]/ZIP Co de Phone Number [facility] - 01 * TSH (02/04/2025 9:03 AM CDT) [facility] TSH 1.620 0.450 - 4.500 uIU/mL [facility] - 01 Blood 02/04/2025 9:03 AM CDT 02/04/2025 Narrative [facility] - 02/05/2025 7:37 AM CDT Performed at: [address] [id number] Kier Hand: Maurizio Pettit PhD, Phone: [phone] Monica OMALLEY LAB BLOOD ORDERABLES Final Result Performing Organization Address [facility] Co de Phone Number [facility] - 01 * (ABNORMAL) Hemoglobin A1c (02/04/2025 9:03 AM CDT) [facility] Hgb A1C 6.9(H) 4.8 - 5.6 % [facility] - 01 Comment: Prediabetes: 5.7 - 6.4 Diabetes: >6.4 Glycemic control for adults with diabetes: <7.0 Blood 02/04/2025 9:03 AM CDT 02/04/2025 Narrative [facility] - 02/05/2025 7:37 AM CDT Performed at: [address] [place] [id number] Kier Hand: Maurizio Pettit PhD, Phone: [phone] Monica OMALLEY LAB BLOOD ORDERABLES Final Result Performing Organization Address City/[facility]/ZIP Co de Phone Number [facility] - 01 * Lipid panel (02/04/2025 9:03 AM CDT) Cholesterol 110 100 - 199 mg/dL [facility] - 01 Triglycerides 147 0 - 149 mg/dL [facility] - 01 HDL Cholesterol 44 >39 mg/dL [facility] - 01 VLDL 25 5 - 40 mg/dL [facility] - 01 LDL, calculated 41 0 - 99 mg/dL [facility] - 01 Blood 02/04/2025 9:03 AM CDT 02/04/2025 Narrative [facility] - 02/05/2025 7:37 AM CDT Performed at: [address] [id number] Kier Hand: Maurizio Pettit PhD, Phone: [phone] Monica OMALLEY LAB BLOOD ORDERABLES Final Result [facility] 01 * (ABNORMAL) Comprehensive metabolic panel (02/04/2025 9:03 AM CDT) Glucose 139(H) 70 - 99 mg/dL [facility] [...] - 02/05/2025 7:37 AM CDT Performed at: - [address] [id number] Kier Hand: Maurizio Pettit PhD, Phone: [phone] us Monica OMALLEY LAB BLOOD ORDERABLES Final Result Performing Organization Address City/[facility]/ZIP Co de Phone Number [facility] - 01 * POCT glucose (02/01/2025 11:33 AM CDT) [facility] Glucose, POC 120 70 - 199 mg/dL Blood 02/01/2025 11:3 3 AM CDT 02/01/2025 11:33 AM CDT us Yordy Melgar MD LAB POCT ORDERABLES - DEVICE Fin al Result Performing Organization Address City/[facility] Co de Phone Number [facility] [address] [facility] Department [place] [address] * Surgical pathology (02/01/2025 10:59 AM CDT) Tissue (Polyp(s), colon/colorectal, esophageal, gastric) 02/01/2025 10:59 AM CDT Tissue specimen (specimen) (Polyp(s), colon/colorectal, esophageal, gastric) 02/01/2025 11:02 AM CDT Tissue specimen (specimen) (Polyp(s), colon/colorectal, esophageal, gastric) 02/01/2025 11:05 AM CDT Tissue specimen (specimen) (Polyp(s), colon/colorectal, esophageal, gastric) 02/01/2025 11:08 AM CDT Tissue specimen (specimen) (Polyp(s), colon/colorectal, esophageal, gastric) 02/01/2025 11:14 AM CDT Narrative PATHOLOGY [facility] - 02/02/2025 4:31 PM CDT [facility] Department of Pathology [address] [place] [address] Note to Patients: This report may contain [...] : 1950 (Age: 74) Gender: F Address: [address] [place] [address] Hospital #: [id number] Service: Gastro Location: Patient Type: [facility] OUTPATIENT Taken: 02/01/2025 Received: 02/01/2025 Accessioned: 02/01/2025 [...] cm. Entirely submitted. Labeled E1. Jar 0. [facility]/02/01/2025 15:14 STEFANIE Cast, PA (ASCP) Microscopic slide review and interpretation for this case was performed at [facility], Department of Surgical Pathology, [address] [facility], [place] [id number], [place] [address] CLIA # [id number] us Yordy Melgar MD LAB PATHOLOGY ORDERABLES Final R esult PATHOLOGY [facility] * Colonoscopy (02/01/2025 10:46 AM CDT) Anatomical Region Laterality Modality Other Narrative Procedure Note Yordy Melgar MD - 02/01/2025 10:46 AM CDT [facility] GI ENDOSCOPY Patient Name: Devante Lambert Procedure Date: 02/01/2025 10:46 AM Date of : 1950 Admit Type: Outpatient Age: 74 Gender: Female Attending MD: Yordy Melgar M.D. Room: [facility] ENDOSCOPY ROOM 03 Note Status: [...] The scope was passed under direct vision.The [id number] colonoscope was introduced through theanus and advanced [...] post-intervention, one hemostatic clip wassuccessfully placed. Clip attendant self service store: [employer]. There was no bleedingat the end of [...] snare. Resected and retrieved. Clip was placed.Clip attendant self service store: [employer]. - One diminutive polyp in the ascending [...] On: 02/01/2025 10:46 AM Recognized by the [place] [employer] for promoting quality in endoscopy us Yordy Melgar MD ENDOSCOPY PROCEDURES Final Resul t * POCT glucose (02/01/2025 9:18 AM CDT) Glucose, POC 141 70 - 199 mg/dL Blood 02/01/2025 9:18 AM CDT 02/01/2025 9:18 AM CDT Yordy Melgar MD LAB POCT ORDERABLES - DEVICE Fin al Result [id number] [address] [facility] Department of Laboratories [place], [place] [id number] * eGFR (01/18/2025 10:03 AM CDT) eGFR [...] was last reviewed 2021. Testing performed by: [address] [address] Blood 01/18/2025 10:0 3 AM CDT 01/18/2025 10:05 AM CDT Tracie Raphael MD LAB BLOOD ORDERABLES Final Result [facility] [address] [facility] Department [place] [address] * Differential, auto (01/18/2025 10:03 AM CDT) Neutrophil abs 4.76 1.50 - 6.50 K/cumm Comment:Testing performed by : [address] [address] Imm gran abs 0.03 0.00 - 0.10 K/cumm ISAI Comment:Testing performed by : [address] [address] Lymphocyte abs 2.18 0.80 - 3.30 K/cumm ISAI Comment:Testing performed by : [address] [address] Monocyte abs 0.45 0.20 - 0.80 K/cumm ISAI Comment:Testing performed by : [address] [address] Eosinophil abs 0.23 0.00 - 0.50 K/cumm ISAI Comment:Testing performed by : [address] [address] Basophil abs 0.07 0.00 - 0.10 K/cumm ISAI Comment:Testing performed by : [address] [address] Neutrophil pct 61.7 % [facility] Comment: Interpretive Data Percent cell count reference ranges are not reported, since discordance with absolute values may lead to misinterpretation of CBC data. Current Interpretive Data was last revised on 2018. Testing performed by: [address] [address] Imm gran pct 0.4 % [facility] Comment: Interpretive Data Percent cell count reference ranges are not reported, since discordance with absolute values may lead to misinterpretation of CBC data. Current Interpretive Data was last revised on 2018. Testing performed by: [address] [address] Lymphocyte pct 28.2 % [facility] Comment: Interpretive Data Percent cell count reference ranges are not reported, since discordance with absolute values may lead to misinterpretation of CBC data. Current Interpretive Data was last revised on 2018. Testing performed by: [address] [address] Monocyte pct 5.8 % [facility] Comment: Interpretive Data Percent cell count reference ranges are not reported, since discordance with absolute values may lead to misinterpretation of CBC data. Current Interpretive Data was last revised on 2018. Testing performed by: [address] [address] Eosinophil pct 3.0 % [facility] Comment: Interpretive Data Percent cell count reference ranges are not reported, since discordance with absolute values may lead to misinterpretation of CBC data. Current Interpretive Data was last revised on 2018. Testing performed by: [address] [address] Basophil pct 0.9 % [facility] Comment: Interpretive Data Percent cell count reference ranges are not reported, since discordance with absolute values may lead to misinterpretation of CBC data. Current Interpretive Data was last revised on 2018. Testing performed by: [address] [address] Blood 01/18/2025 10:0 3 AM CDT 01/18/2025 10:05 AM CDT Tracie Raphael MD LAB BLOOD ORDERABLES Final Result [facility] [address] [facility] Department of Laboratories [place], [place] [id number] * (ABNORMAL) Iron profile w/ IBC (01/18/2025 10:03 AM CDT) Iron 58 35 - 145 mcg/dL Comment:Testing performed by : [address] [address] TIBC 301 250 - 400 mcg/dL [facility] EVANS Comment:Testing performed by : [address] [address] Transferrin saturation 19(L) 20 - 50 % ISAI Comment:Testing performed by : [address] [address] Blood 01/18/2025 10:0 3 AM CDT 01/18/2025 12:01 PM CDT Tracie Raphael MD LAB BLOOD ORDERABLES Final Result [facility] [address] [facility] Department [place] [address] * (ABNORMAL) CBC with auto differential (01/18/2025 10:03 AM CDT) [facility] WBC 7.72 3.80 - 9.90 K/cumm Comment:Testing performed by : [address] [address] Hgb 11.6(L) 11.9 - 15.5 g/dL [facility] EVANS Comment:Testing performed by : [address] [address] Hct 34.4(L) 35.6 - 45.5 % [facility] EVANS Comment:Testing performed by : [address] [address] Plt 473(H) 150 - 400 K/cumm [facility]AI EVANS Comment:Testing performed by : [address] [address] MPV 8.4(L) 9.1 - 12.3 fL [facility] EVANS Comment:Testing performed by : [address] [address] RBC 3.72(L) 3.90 - 5.20 M/cumm SIAI EVANS Comment:Testing performed by : [address] [address] MCV 92.5 81.3 - 96.4 fL ISAI Comment:Testing performed by : [address] [address] MCH 31.2 27.1 - 33.3 pg [facility] EVANS Comment:Testing performed by : [address] [address] MCHC 33.7 32.3 - 35.7 g/dL [facility] EVANS Comment:Testing performed by : [address] [address] RDW CV 13.1 11.1 - 14.9 % ISAI Comment:Testing performed by : [address] [address] RDW SD 43.8 35.7 - 48.1 fL [facility]AI Comment:Testing performed by : [address] [address] NRBC abs 0.00 0.00 - 0.01 K/cumm ISAI Comment:Testing performed by : [address] [address] ANC Prelim 4.76 1.50 - 6.50 K/cumm ISAI Comment: Interpretive Data The rapid ANC is a preliminary automated count and may vary from the final ANC (Neut Abs) reported in the WBC differential that follows. Current interpretive data was last revised 2024. Testing performed by: [address] [address] Blood 01/18/2025 10:0 3 AM CDT 01/18/2025 10:05 AM CDT us Tracie Raphael MD LAB BLOOD ORDERABLES Final Result [facility] [address] [facility] Department of Laboratories [place], [place] [id number] * Ferritin (01/18/2025 10:03 AM CDT) [facility] Ferritin 96 15 - 150 ng/mL Comment:Testing performed by : [address] [address] Blood 01/18/2025 10:0 3 AM CDT 01/18/2025 12:01 PM CDT Tracie Raphael MD LAB BLOOD ORDERABLES Final Result Performing Organization Address [facility] de Phone Number [place] [id number] [facility] [place] [address] * CEA (01/18/2025 10:03 AM CDT) CEA 2.6 <=5.0 ng/mL Comment: Interpretive Data: Reference Range: Non-Smokers: 0.0 5.0 ng/mL Smokers: 0.0 6.5 ng/mL The Christine CEA assay procedure was used. Results from different manufacturers or methods may not be comparable. Serial testing should be performed using the same method. Current interpretive data was last revised 2023. Testing performed by: [address] [address] Blood 01/18/2025 10:0 3 AM CDT 01/18/2025 12:01 PM CDT Tracie Raphael MD LAB BLOOD ORDERABLES Final Result Performing Organization Address City/[facility] de Phone Number [address] [place] [employer] [place] [address] * (ABNORMAL) Comprehensive metabolic panel (01/18/2025 10:03 AM CDT) Pathologist [facility] Sodium 140 135 - 145 mmol/L Comment:Testing performed by : [address] [address] Potassium, pl 4.4 3.3 - 4.9 mmol/L ISAI EVANS Comment:Testing performed by : [address] [address] Chloride 105 97 - 110 mmol/L ISAI EVANS Comment:Testing performed by : [address] [address] CO2 25 22 - 32 mmol/L ISAI Comment:Testing performed by : [address] [address] Anion gap 10 2 - 15 mmol/L ISAI Comment:Testing performed by : [address], [place]., [address] BUN 20 6 - 25 mg/dL ISAI Comment:Testing performed by : [address], [place]., [address] Creatinine 0.80 0.60 - 1.10 mg/dL ISAI Comment:Testing performed by : [address] [address] Glucose 142 70 - 199 mg/dL [facility] Comment: Interpretive Data Fasting glucose >/= 126 [...] was last revised 2022. Testing performed by: [address] [address] Calcium 10.7(H) 8.5 - 10.3 mg/dL ISAI Comment:Testing performed by : [address] [address] Bilirubin, total 0.5 0.1 - 1.2 mg/dL [facility] Comment:Testing performed by : [address] [address] Protein, pl 6.9 6.5 - 8.5 g/dL ISAI Comment:Testing performed by : [address] [address] Albumin 4.8 3.5 - 5.0 g/dL ISAI Comment:Testing performed by : [address] [address] Alk phos 61 40 - 130 Units/L ISAI EVANS Comment:Testing performed by : [facility], [address] [place] [address]., [address] ALT 29 7 - 45 Units/L ISAI EVANS Comment:Testing performed by : [address] [address] AST 26 10 - 45 Units/L IS[facility] EVANS Comment:Testing performed by : [address] [address] Blood 01/18/2025 10:0 3 AM CDT 01/18/2025 10:05 AM CDT us Tracie Raphael MD LAB BLOOD ORDERABLES Final Result [facility] [address] [facility] Department [place] [address] * MRI Pelvis W WO Contrast (01/12/2025 [...] Garo Campbell M.D. NS: NS Report ID: [id number] Reading Location: [id number] Procedure Note Garo Campbell MD - 01/18/2025 [...] Garo Campbell M.D. NS: NS Report ID: [id number] Reading Location: [id number] Tracie Raphael MD IMG MRI PROCEDURES F inal [...] Christian Ken M.D. CH: SHANEKA Report ID: [id number] Reading Location: [id number] Procedure Note Christian Ken Jr., MD - [...] 01/17/2025 11:21 AM - Electronically signed by Christain Ken M.D. CH: Report ID: [id number] Reading Location: [place] [address] Tracie Raphael MD IMG CT PROCEDURES Fi [...] Christian Ken M.D. CH: SHANEKA Report ID: [id number] Reading Location: [place] [address] Procedure Note Christian Ken Jr., MD - [...] Christian Ken M.D. CH: SHANEKA Report ID: [id number] Reading Location: [id number] Tracie Raphael MD IMG CT PROCEDURES Fi nal Result * POCT creatinine for contrast evaluation (01/12/2025 8:14 AM CDT) Creatinine POC 0.70 0.60 - 1.10 mg/dL Comment:Testing performed by : [facility], [address] [place] [address], [place]., [address] Blood 01/12/2025 8:14 AM CDT 01/12/2025 8:14 AM CDT Adryan Carver MD POINT OF CARE TEST ORDERABLE S Final Result [facility] [address] [facility] Department [place] [address] * Screening Mammogram Bilateral W Audi (09/09/2024) Anatomical Region Laterality Modality Breast Bilateral Mammography 09/09/2024 Impressions 09/10/2024 10:12 AM SOLUTION DIRECTOR BI-RADS Category 1-Negative Monica OMALLEY IMG MAMMO PROCEDURES Final Result * DIABETES EYE EXAM (03/19/2024 9:03 AM CDT) SCRIBED DIABETIC DILATED EYE EXAM Normal Glenn Tom MD HEALTH MAINTENANCE Edited Result - Final * Dexa Axial Skeleton Bone Density 1 or 2 Site (01/28/2022) Anatomical Region Laterality Modality Body N/A Radiographic Vania ging Monica OMALLEY IMG DXA PROCEDURES Final R esult * Hepatitis C antibody (05/10/2020 10:50 AM CDT) Hep C Ab Nonreactive Nonreactive [facility] Comment:Antibodies to HCV no t detected. Does NOT exclude the possibility of recent exposure to HCV. Blood specimen (specimen) 05/10/2020 10:50 AM CDT 05/10/2020 10:59 AM CDT Julio Benedict MD LAB MICROBIOLOGY - GENERAL [place] Edited Result - Final [facility] [place] [address] from Last 3 Months or Most Recently Relevant to Health Maintenance Insurance [facility] Advance Directives For more information, please contact: [phone] Documents on File Type Date Recorded Patient Paleontology Teacher Expl anation ADVANCE DIRECTIVE 09/29/2019 4:35 AM ADVANCE DIRECTIVE 07/27/2019 Prateek villalta * Full Code (Latest Code Status [...] 6:47 AM 09/08/2019 12:57 PM Care Teams Employee Communications Specialist Relationship Specialty Start Date End Date Monica Harvey PA [address] [facility] [address] [place] [address] PCP - General Internal Medicine 01/03/24 Christiano Kidd MD Consulting Physician Urology 02/08/19 Malcom Ramirez MD Referring Physician Obstetrics and Gynecology 07/27/19 Jatin Carver MD [address] [facility] [id number] [place] [address] Medical Oncologist Gynecologic Oncology 08/25/19 Adryan Carver MD [id number] [place] [address] Surgeon General Surgery 08/25/19 Tracie Raphael MD [id number] [place] [address] Medical Oncologist/Crystallography Teacher Medical Oncology 09/08/19 Jatin Giron MD [id number] [place] [address] Consulting Physician Family Medicine 02/11/20
--- OUTSIDE RECORDS SUMMARY | 2025-03-09 08:04 | XMS_ITS | Encounter Summary ---
Author Organization [facility] Healthcare Address [address] [place] [address] Care Team Providers Care Central Aisle Cashier Name Role Phone Christiano Kidd MD Unavailable Malcom Ramirez MD Unavailable [phone] Jatin Carver MD Unavailable [phone] Adryan Carver MD Unavailable [phone] Tracie Raphael MD Unavailable [phone] Jatin Giron MD Unavailable [phone] Monica Harvey Primary Care Provider [phone] Reason for Visit * Reason Onset Date Comments Dizziness 02/02/2025 Hypotension 02/02/2025 Encounter Details Date Type Department Care Team (Late st Contact Info) Description 02/02/2025 Nurse Triage [facility] Family Medicine [address] [facility] [address] [place] [address] Jeny Salas RN Social History Tobacco Use Types Packs/Day Years Used Date Smoking Tobacco: Never Smokeless Tobacco: Never Alcohol Use Standard Drinks/Week Comments Never 0 (1 standard drink = 0.6 oz pur e alcohol) AUDIT-C Answer Date Recorded Q1: How often do you have a drink containing alcohol? Never 02/01/2025 Q2: How many drinks containi ng alcohol do you have on a typical day when you are drinking? Patient does not drink Q3: How often do you have si x or more drinks on one occasion? 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 BP today is 118/77. She does not have any covid symptoms at this time. Informed pt that if BP goes back down or if she gets symptoms to call office. Pt appt moved up to Wednesday 02/07. * Telephone Encounter - Jeny Salas RN - 02/02/2025 10:39 AM CDT Patient reports intermittent episodes of lightheadedness and feeling off balance x1 month. Reports that yesterday symptoms were much worse, but thinks it could be related to NPO status for colonoscopy. Reports being told yesterday when she was at the hospital for coloscopy her blood pressure was 101/57. Patient reports this is low for her. She does not check her blood pressure at home or have any other recent blood pressure readings. Reports she does continue to take Lisinopril as ordered. Reports she has intermittently experienced lightheadedness today, but not as severe as yesterday. She isback to eating and drinking as she normally would today. Denies chest pain, difficulty breathing, headache, vision changes, room spinning sensation, signs of bleeding, fever. Currently scheduled in PCP office on 02/15/25 for annual wellness exam; no sooner appointments available. Care advice reviewed with patient. Advised message will be routed to PCP. Call back with questions, concerns, worseningsymptoms. Caller stated understanding. Routed to Monica Harvey PA office. Patient scheduled on 02/15/25 for annual wellness exam; nosooner appointments available. Please advise if patient needs to be seen sooner, make any medication changes or other recommendations regarding lightheadedness. Reason for Disposition Taking a medicine that could cause dizziness (e.g., blood pressure medications, diuretics) Protocols used: [id number]-MS * Telephone Encounter - Leann Chong RN - 02/02/2025 10:24 AM CDT Regarding: dizzy ----- Message from Pedro Bergeron sent at 02/02/2025 10:23 AM CDT ----- Symptom Based Call Chief Complaint(s): Dizzy,lightheaded Duration: a month, worst yesterday 02/01 What type of symptom(s) is the patient experiencing? Red Flag. Is the patient concerned they are experiencing a medical emergency requiring an ambulance? No Additional Comments: covid exposed in the last week, she reported bp low 101/57 Does message need to be routed? Yes-Action Needed documented in this encounter Plan of Treatment Not on file documented as of this encounter Visit Diagnoses Not on filedocumented in this encounter Care Teams Central Aisle Cashier Relationship Specialty Start Date End Date Monica Harvey PA [address] [facility] [address] [place] [address] PCP - General Internal Medicine 01/03/24 Christiano Kidd MD Consulting Physician Urology 02/08/19 Malcom Ramirez MD Referring Physician Obstetrics and Gynecology 07/27/19 Jatin Carver MD [address] [facility] [id number] [place] [address] Medical Oncologist Gynecologic Oncology 08/25/19 Adryan Carver MD [address] [facility] [id number] [place] [address] Surgeon General Surgery 08/25/19 Tracie Raphael MD [address] [facility] [id number] [place] [address] Medical Oncologist/Resin Remover Medical Oncology 09/08/19 Jatin Giron MD [address] [facility] [id number] [place] [address] Consulting Physician Family Medicine 02/11/20 documented as of this encounter
--- OUTSIDE RECORDS SUMMARY | 2025-03-09 08:04 | XMS_ITS | Encounter Summary ---
Author Organization [facility] Address [address] [place] [address] Care Team Providers Care Pony Edger Name Role Phone Christiano Kidd MD Unavailable [phone] Malcom Ramirez MD Unavailable [phone] Jatin Carver MD Unavailable [phone] Adryan Carver MD Unavailable [phone] Lynette Villela MD Unavailable [phone] Tracie Raphael MD Unavailable +- [phone] Monica Harvey Primary Care Provider [phone] Jatin Giron MD Unavailable [phone] Jatin Giron MD Primary Care Provider [phone] Monica Harvey Primary Care Provider [phone] Encounter Details Date Type Department Care Team (Late st Contact Info) Description 05/30/2020 Telephone [facility] [address] [place] [address] Marcos Landeros, RT Social History Tobacco Use Types Packs/Day Years Used Date Smoking Tobacco: Never Smokeless Tobacco: Never Alcohol Use Standard Drinks/Week Comments Never 0 (1 standard drink = 0.6 oz pur e alcohol) AUDIT-C Answer Date Recorded Frequency of Alcohol Consumption Never 02/08/2019 Average Number of Drinks Not on file 019 Frequency of Binge Drinking Not on file 03/2019 PHQ-2 Answer Date Recorded PHQ-2 Score 0 05/29/2019 Comments No Sex and Gender Information Value Date Recorded Sex Assigned at Not on file 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 09/26/2020 10/02/2020 01/24/2021 3:05 AM C DT documented as of this encounter Care Teams Pony Edger Relationship Specialty Start Date End Date Monica Harvey PA [address] [place] [address] PCP - General Internal Medicine 09/13/19 12/30/23 Jatin Giron MD [address] [place] [address] PCP - General Family Medicine 12/31/23 01/02/24 Monica Harvey PA [address] [place] [address] PCP - General Internal Medicine 01/03/24 Christiano Kidd MD Consulting Physician Urology 02/08/19 Malcom Ramirez MD Referring Physician Obstetrics and Gynecology 07/27/19 Jatin Carver MD [address] [facility] [id number] [place] [address] Medical Oncologist Gynecologic Oncology 08/25/19 Adryan Carver MD [address] [facility] [id number] [place] [address] Surgeon General Surgery 08/25/19 Lynette Villela MD [address] [facility] [id number] [place] [address] Radiation Oncologist Radiation Oncology 08/25/19 Tracie Raphael MD [address] [facility] [id number] [place] [address] Medical Oncologist/Worsted Winder Medical Oncology 09/08/19 Jatin Giron MD [address] [address] Consulting Physician Family Medicine 02/11/20 documented as of this encounter
--- OUTSIDE RECORDS SUMMARY | 2025-03-09 08:04 | XMS_ITS | Encounter Summary ---
Author Organization [facility] Healthcare Address [address] [place] [address] Care Team Providers Care Drum Puller Name Role Phone Christiano Kidd MD Unavailable [phone] Malcom Ramirez MD Unavailable [phone] Jatin Carver MD Unavailable [phone] Adryan Carver MD Unavailable [phone] Tracie Raphael MD Unavailable [phone] Jatin Giron MD Unavailable [phone] Monica Harvey Primary Care Provider [phone] Encounter Details Date Type Department Care Team (Latest Contact Info) Description 02/03/2025 Results Follow-Up [facility] Gastroenterology at [address] [place] [id number] Yordy Melgar MD [address] [place] [address] [address] [place] [address] Surgical pathology Social History Tobacco Use Types Packs/Day Years [...] on file 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 Gender Identity Not on file Sexual Orientation Not on file documented as of this encounter Plan of Treatment Not on file documented as of this encounter Visit Diagnoses Not on filedocumented in this encounter Care Teams Drum Puller Relationship Specialty Start Date End Date Monica Harvey PA [address] [facility] [address] [place] [address] PCP - General Internal Medicine 01/03/24 Christiano Kidd MD Consulting Physician Urology 02/08/19 Malcom Ramirez MD Referring Physician Obstetrics and Gynecology 07/27/19 Jatin Carver MD [address] [facility] [phone] [place], [place] [address] Medical Oncologist Gynecologic Oncology 08/25/19 Adryan Carver MD [address] [facility] [id number] [place] [address] Surgeon General Surgery 08/25/19 Tracie Raphael MD [address] [facility] [id number] [place] [address] Medical Oncologist/Marketing Production Specialist Medical Oncology 09/08/19 Jatin Giron MD [address] [facility] [id number] [place] [address] Consulting Physician Family Medicine 02/11/20 documented as of this encounter
[2025-03-09 09:24] LABS: Estimated Glomerular Filt Rate 54
== END 2025-03-09 08:00 | disposition home or self-care (01) ==
PROVIDERS: PCP Physician Assistant; Visit Provider Physician Assistant
DX: R42 Dizziness and giddiness (principal)
CPT/HCPCS: 70470; Q9967

== ENCOUNTER 2025-06-14 09:36 | Outpatient (CLI) | payer OTHER, SELFPAY ==
--- NOTE | 2025-06-14 | ECHO_ITS ---
Patient Info Name: Tracey Lambert Age: 75 years : 1950 Gender: Female Ht: 61 in Wt: 140 lbs BSA: 1.67 m2 HR: 75 bpm BP: 117 / 77 mmHg Technical Quality: Good Exam Date: 06/14/2025 10:11 AM Patient Status: O Admit Date: 06/14/2025 Exam Type: CA echo doppler color flow Complete two-dimensional, color flow and Doppler transthoracic echocardiogram is performed. Story Editor: Selene Faustin Attending Provider: Monica Harvey Summary 1. Complete two-dimensional, color flow and Doppler transthoracic echocardiogram is performed. 2. The left ventricle is normal in size and systolic function. The left ventricular ejection fraction is visually estimated to be 65-70%. 3. The right ventricle is normal in size and systolic function. 4. There is trace amount of pericardial effusion. 5. There are no significant valvular abnormalities. Left Ventricle The left ventricle is normal in size and systolic function. The left ventricular ejection fraction is visually estimated to be 65-70%. Right Ventricle The right ventricle is normal in size and systolic function. Left Atria The left atrium is normal size. Right Atria The right atrium is normal size. Atrial Septum The atrial septum is visually intact. Aortic Valve The aortic valve is trileaflet and opens well. There is no aortic regurgitation. Pulmonic Valve The pulmonic valve is not well visualized. There is trace pulmonic valve regurgitation. Mitral Valve The mitral valve is normal. There is no mitral regurgitation. Tricuspid Valve The tricuspid valve is grossly normal. There is trace tricuspid regurgitation. Pericardium/Pleural There is trace amount of pericardial effusion. Inferior Vena Cava Normal inferior vena cava with >50% collapse upon inspiration consistent with normal right atrial pressure, 3 mmHg. Aorta The aortic root at the level of the sinus of Valsalva measures 3.0 cm in diameter. Left Ventricular Outflow Tract Name Value Normal LVOT 2D LVOT Diameter 1.9 cm LVOT Doppler LVOT Peak Velocity 91 cm/s LVOT Peak Gradient 3 mmHg LVOT Mean Gradient 2 mmHg LVOT VTI 20 cm LVOT VTI/AV VTI Ratio 0.6 LVOT Stroke Volume 59 ml LVOT CO 11.6 l/min LVOT CI 7.0 l/min/m2 Pulmonic Valve Name Value Normal PV Doppler PV Peak Velocity 78 cm/s PV Peak Gradient 2 mmHg Mitral Valve Name Value Normal MV Diastolic Function MV E Peak Velocity 66 cm/s MV A Peak Velocity 99 cm/s MV E/A 0.7 MV Decel Time (PW) 301 ms MV Annular TDI MV E/e' (Septal) 20.1 MV E/e' (Lateral) 13.5 MV E/e' (Average) 16.8 Tricuspid Valve Name Value Normal TV Regurgitation Doppler TR Peak Velocity 219 cm/s TR Peak Gradient 19 mmHg Estimated PAP/RSVP RA Pressure 3 mmHg <=5 PA Systolic Pressure 22 mmHg <36 RV Systolic Pressure 22 mmHg <36 TV Annular TDI TV Lateral Gaby s' Velocity 11.2 cm/s >=9.5 Aorta Name Value Normal Ascending Aorta Ao Root Diameter (MM) 3.2 cm Ao Root Diam Index (MM) 1.9 cm/m2 Aortic Valve Name Value Normal AV Doppler AV Peak Velocity 147 cm/s AV Peak Gradient 9 mmHg AV Mean Gradient 6 mmHg AV VTI 31 cm AV Area (Cont Eq VTI) 1.9 cm2 >=3.0 AV Area (Cont Eq Terry) 1.8 cm2 AV DI (Terry) 0.62 AV Regurgitation 2D LVOT Area 3.0 cm2 Ventricles Name Value Normal LV Dimensions 2D/MM IVS Diastolic Thickness (2D) 0.9 cm 0.6-1.0 LVID Diastole (2D) 3.7 cm 3.8-5.2 LVIW Diastolic Thickness (2D) 0.9 cm 0.6-0.9 LVID Systole (2D) 2.1 cm 2.2-3.5 LVOT Diameter 1.9 cm LV Mass (2D Cubed) 99.66 g 67.00-162.00 LV Mass Index (2D Cubed) 60 g/m2 43-95 Relative Wall Thickness (2D) 0.48 <=0.42 LV Fractional Shortening/Ejection Fraction 2D/MM LV Fractional Shortening (2D) 42 % 27-45 LV EF (2D Teichholz) 74 % LV Diastolic Volume (4C MOD) 87 ml LV EF (4C MOD) 55 % LV Diastolic Volume (2C MOD) 68 ml LV EF (2C MOD) 58 % LV Diastolic Volume (BP MOD) 77 ml 46-106 LV Diastolic Volume Index (BP MOD) 46 ml/m2 29-61 LV Systolic Volume (BP MOD) 34 ml 14-42 LV Systolic Volume Index (BP MOD) 21 ml/m2 8-24 LV EF (BP MOD) 55 % 54-74 LV Diastolic Length (4C) 7.1 cm LV Systolic Length (4C) 5.9 cm LV Stroke Volume (4C MOD) 48 ml RV Dimensions 2D/MM RVID Diastole (2D) 2.7 cm 2.1-3.5 Atria Name Value Normal LA Dimensions LA Dimension (MM) 3.4 cm 2.7-3.8 LA Volume (4C A-L) 34 ml LA Volume (BP A-L) 33 ml RA Dimensions RA Systolic Major Patrick Length (4C) 4.5 cm 2.2-2.8 RA Area (4C) 13.6 cm2 <=18.0 Report Signatures
--- OUTSIDE RECORDS SUMMARY | 2025-06-14 10:45 | XMS_ITS | Encounter Summary ---
Author Organization [facility] Healthcare Address [address] [place] [address] Care Team Providers Care Nursing Unit Clerk Name Role Phone Christiano Kidd MD Unavailable [phone] Malcom Ramirez MD Unavailable [phone] Jatin Carver MD Unavailable [phone] Adryan Carver MD Unavailable [phone] Jatin Giron MD Unavailable [phone] Monica Harvey Primary Care Provider [phone] Ashlyn Chaparro NP Unavailable [phone] Reason for Visit * Reason Onset Date Comments Additional Services Or Orders 05/17/2025 Encounter Details Date Type Department Care Team (Late st Contact Info) Description 05/17/[address] [facility] Medical Group Family Medicine [address] [facility] [address] [place] [address] Monica Harvey PA [address] [facility] [address] [place] [address] Additional Services Or Orders Social History Tobacco Use Types Packs/Day Years Used Date Smoking Tobacco: Never Smokeless Tobacco: Never Alcohol Use Standard Drinks/Week Comments Never 0 (1 standard drink = 0.6 oz pur e alcohol) AUDIT-C Answer Date Recorded Q1: How often do you have a drink containing alcohol? Never 05/12/2025 Q2: How many drinks containi ng alcohol do you have on a typical day when you are drinking? Patient does not drink Q3: How often do you have si x or more drinks on one occasion? Never 05/12/2025 PHQ-2 Answer Date Recorded PHQ-2 Total Score (If total score is 3 or more points, staff should administer the PHQ-9) 0 05/12/2025 PHQ-9 Answer Date Recorded PHQ-9 Total Score 6 12/30/2023 Personal Safety Answer Date Recorded Have you ever been in or are you currently in a harmful physical or emotional relationship or is someone making you feel afraid or unsafe? 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 Pt made aware. * Telephone Encounter - Nerissa Rand - 05/17/2025 11:48 AM CDT Additional Services or Orders Type of Service Requested:Testing Reason for Request (e.g. condition/symptom, date of COVID exposure if applicable): She is needing the order faxed to have this scheduled at an outside facility. Details Regarding Additional Services (e.g. type of home health, type of equipment, type of test, etc.): Transthoracic Echo (TTE) Complete W Doppler/CF Where will services be performed? (if outside of the practice, facility name, address, phone/fax offacility): [facility], fax number: [phone] Additional Comments: None Does message need to be routed? Yes-Action Needed documented in this encounter Plan of Treatment Not on file documented as of this encounter Visit Diagnoses Not on filedocumented in this encounter Care Teams Nursing Unit Clerk Relationship Specialty Start Date End Date Monica Harvey PA [address] [facility] [address] [place] [address] PCP - General Internal Medicine 01/03/24 Christiano Kidd MD Consulting Physician Urology 02/08/19 Malcom Ramirez MD Referring Physician Obstetrics and Gynecology 07/27/19 Jatin Carver MD [address] [facility] [id number] [place] [address] Medical Oncologist Gynecologic Oncology 08/25/19 Adryan Carver MD [address] [facility] [id number] [place] [address] Surgeon General Surgery 08/25/19 Jatin Giron MD [address] [facility] [id number] [place] [address] Consulting Physician Family Medicine 02/11/20 Ashlyn Chaparro NP [address] [facility] [address] [facility] [address] [place] [address] Nurse Practitioner Medical Oncology 04/21/25 documented as of this encounter
--- OUTSIDE RECORDS SUMMARY | 2025-06-14 10:45 | XMS_ITS | Encounter Summary ---
Author Organization [facility] Address [address] [place] [address] Care Team Providers Care Window Covering Sales Consultant Name Role Phone Christiano Kidd MD Unavailable [phone] Malcom Ramirez MD Unavailable [phone] Jatin Carver MD Unavailable [phone] Adryan Carver MD Unavailable [phone] Tracie Raphael MD Unavailable [phone] Jatin Giron MD Unavailable [phone] Monica Harvey Primary Care Provider [phone] Ashlyn Chaparro NP Unavailable [phone] Encounter Details Date Type Department Care Team (Late st Contact Info) Description 06/10/2024 Orders Only [facility] Health Information Management [address] [place] [address] Scanning, Provider Social History Tobacco Use Types [...] on file 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 Gender Identity Not on file Sexual Orientation [...] on filedocumented in this encounter Care Teams Window Covering Sales Consultant Relationship Specialty Start Date End Date Monica Harvey PA [address] [address] PCP - General Internal Medicine 01/03/24 Christiano Kidd MD Consulting Physician Urology 02/08/19 Malcom Ramirez MD Referring Physician Obstetrics and Gynecology 07/27/19 Jatin Carver MD [address] [facility] [id number] [place] [address] Medical Oncologist Gynecologic Oncology 08/25/19 Adryan Carver MD [address] [facility] [id number] [place] [address] Surgeon General Surgery 08/25/19 Tracie Raphael MD [address] [facility] [id number] [place] [address] Medical Oncologist/Tank Wagon Operator Medical Oncology 09/08/19 04/20/25 Jatin Giron MD [address] [facility] [id number] [place] [address] Consulting Physician Family Medicine 02/11/20 Ashlyn Chaparro NP [address] [place] [address] Nurse Practitioner Medical Oncology 04/21/25 documented as of this encounter
--- OUTSIDE RECORDS SUMMARY | 2025-06-14 10:45 | XMS_ITS | Encounter Summary ---
Author Organization [facility] Address [address] [place] [address] Care Team Providers Care Nutrition And Dietetics Instructor Name Role Phone Christiano Kidd MD Unavailable [phone] Malcom Ramirez MD Unavailable [phone] Jatin Carver MD Unavailable [phone] Adryan Carver MD Unavailable [phone] Tracie Raphael MD Unavailable [phone] Jatin Giron MD Unavailable [phone] Monica Harvey Primary Care Provider [phone] Ashlyn Chaparro NP Unavailable [phone] Encounter Details Date Type Department Care Team (Late st Contact Info) Description 08/30/[address] 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 Gender Identity Not on file Sexual Orientation [...] on filedocumented in this encounter Care Teams Nutrition And Dietetics Instructor Relationship Specialty Start Date End Date Monica Harvey PA [address] [address] PCP - General Internal Medicine 01/03/24 Christiano Kidd MD Consulting Physician Urology 02/08/19 Malcom Ramirez MD Referring Physician Obstetrics and Gynecology 07/27/19 Jatin Carver MD [address] [facility] [id number] [place] [address] Medical Oncologist Gynecologic Oncology 08/25/19 Adryan Carver MD [address] [facility] [id number] [place] [address] Surgeon General Surgery 08/25/19 Tracie Raphael MD [address] [facility] [id number] [place] [address] Medical Oncologist/Diving Coach Medical Oncology 09/08/19 04/20/25 Jatin Giron MD [address] [facility] [id number] [place] [address] Consulting Physician Family Medicine 02/11/20 Ashlyn Chaparro NP [address] [place] [address] Nurse Practitioner Medical Oncology 04/21/25 documented as of this encounter
--- OUTSIDE RECORDS SUMMARY | 2025-06-14 10:45 | XMS_ITS | Encounter Summary ---
Author Organization [facility] Facility Care Team Providers Care Hydro Plant Operator Name Role Phone Monica Harvey Primary Care Provider [phone]- [phone] Christiano Kidd MD Unavailable [phone] Malcom Ramirez MD Unavailable [phone] Jatin Carver MD Unavailable [phone] Adryan Carver MD Unavailable [phone] Lynette Villela MD Unavailable [phone] Jatin Giron MD Primary Care Provider [phone] Jatin Giron MD Primary Care Provider [phone] Tracie Raphael MD Unavailable +- [phone] Monica Harvey Primary Care Provider + [phone] Jatin Giron MD Unavailable [phone] Jatin Giron MD Primary Care Provider [phone] Monica Harvey Primary Care Provider + [phone] Ashlyn Chaparro NP Unavailable + [phone] Encounter Details Date Type Department Care Team (Latest Contact Info) Description 11/19/2016 Orders Only [facility] ProviderGlenn MD [address] [place] [address] Social History Tobacco Use Types Packs/Day Years Used Date Smoking Tobacco: Never Assessed Comments Unknown Sex and Gender Information Value Date Recorded Sex Assigned at Not on file 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 Historical Provider Final Res ult documented in this encounter Visit Diagnoses Not on filedocumented in this encounter Additional Health Concerns Infection Onset Date Last Indicated Resolved Time COVID: Suspected 09/11/2020 09/11/2020 09/13/2020 4:02 PM SEMIAUTOMATIC STITCHER OPERATOR COVID19 09/12/2020 09/12/2020 09/26/2020 3:07 AM SEMIAUTOMATIC STITCHER OPERATOR COVID: Recovered Comment:Added based on recent COVID infection. 09/26/2020 10/02/2020 01/24/2021 3:05 AM CDT documented as of this encounter Care Teams Hydro Plant Operator Relationship Specialty Start Date End Date Monica Harvey PA [address] [place] [address] PCP - General Internal Medicine 10/06/18 08/25/19 Jatin Giron MD [address] [facility]LOS [facility] [id number] [place] [address] PCP - General Family Medicine 08/26/19 08/26/19 Jatin Giron MD [address] [place] [facility] [id number] [place] [address] PCP - General 08/27/19 09/12/19 Monica Harvey PA [address] [place] [address] PCP - General Internal Medicine 09/13/19 12/30/23 Jatin Giron MD [address] [facility] [id number] [place] [address] PCP - General Family Medicine 12/31/23 01/02/24 Monica Harvey PA [address] [place] [address] PCP - General Internal Medicine 01/03/24 Christiano Kidd MD [address] [place] [address] Consulting Physician Urology 02/08/19 Malcom Ramirez MD [address] [place] [address] Referring Physician Obstetrics and Gynecology 07/27/19 Jatin Carver MD [address] [facility] [id number] [place] [address] Medical Oncologist Gynecologic Oncology 08/25/19 Adryan Carver MD [address] [facility] [id number] [place] [address] Surgeon General Surgery 08/25/19 Lynette Villela MD [address] [facility] [id number] [place] [address] Radiation Oncologist Radiation Oncology 08/25/19 Tracie Raphael MD [address] [facility] [id number] [place] [address] Medical Oncologist/University Administrator Medical Oncology 09/08/19 04/20/25 Jatin Giron MD [address] [facility] [id number] [place] [address] Consulting Physician Family Medicine 02/11/20 Ashlyn Chaparro NP [address] [place] [address] Nurse Practitioner Medical Oncology 04/21/25 documented as of this encounter
--- OUTSIDE RECORDS SUMMARY | 2025-06-14 10:45 | XMS_ITS | Encounter Summary ---
Author Organization [facility] Facility Care Team Providers Care Fractionating Still Operator Name Role Phone Monica Harvey Primary Care Provider +- [phone] Christiano Kidd MD Unavailable [phone] Malcom Ramirez MD Unavailable [phone] Jatin Carver MD Unavailable [phone] Adryan Carver MD Unavailable [phone] Lynette Villela MD Unavailable [phone] Jatin Giron MD Primary Care Provider [phone] Jatin Giron MD Primary Care Provider +[phone] Tracie Raphael MD Unavailable +- [phone] Monica Harvey Primary Care Provider + [phone] Jatin Giron MD Unavailable [phone] Jatin Giron MD Primary Care Provider [phone] Monica Harvey Primary Care Provider + [phone] Ashlyn Chaparro NP Unavailable + [phone] Encounter Details Date Type Department Care Team (Latest Contact Info) Description 09/18/2017 Orders Only [facility] ProviderGlenn MD [address] [place] [id number] Social History Tobacco Use Types Packs/Day Years Used Date Smoking Tobacco: Never Assessed Comments Unknown Sex and Gender Information Value Date Recorded Sex Assigned at Not on file 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 Historical Provider Final Res ult documented in this encounter Visit Diagnoses Not on filedocumented in this encounter Additional Health Concerns Infection Onset Date Last Indicated Resolved Time COVID: Suspected 09/11/2020 09/11/2020 09/13/2020 4:02 PM SALES AND MARKETING ASSOCIATE COVID19 09/12/2020 09/12/2020 09/26/2020 3:07 AM SALES AND MARKETING ASSOCIATE COVID: Recovered Comment:Added based on recent COVID infection. 09/26/2020 10/02/2020 01/24/2021 3:05 AM C DT documented as of this encounter Care Teams Fractionating Still Operator Relationship Specialty Start Date End Date Monica Harvey PA [address] [place] [address] PCP - General Internal Medicine 10/06/18 08/25/19 Jatin Giron MD [address] [facility] [id number] [place] [address] PCP - General Family Medicine 08/26/19 08/26/19 Jatin Giron MD [address] [facility] [id number] [place] [address] PCP - General 08/27/19 09/12/19 Monica Harvey PA [address] [place] [address] PCP - General Internal Medicine 09/13/19 12/30/23 Jatin Giron MD [address] [facility] [id number] [place] [address] PCP - General Family Medicine 12/31/23 01/02/24 Monica Harvey PA [address] [place] [address] PCP - General Internal Medicine 01/03/24 Christiano Kidd MD [address] [place] [address] Consulting Physician Urology 02/08/19 Malcom Ramirez MD [address] [place] [address] Referring Physician Obstetrics and Gynecology 07/27/19 Jatin Carver MD [address] [facility] [id number] [place] [address] Medical Oncologist Gynecologic Oncology 08/25/19 Adryan Carver MD [address] [facility] [id number] [place] [address] Surgeon General Surgery 08/25/19 Lynette Villela MD [address] [facility] [id number] [place] [address] Radiation Oncologist Radiation Oncology 08/25/19 Tracie Raphael MD [address] [facility] [id number] [place] [address] Medical Oncologist/Ambulance Driver Paramedic Medical Oncology 09/08/19 04/20/25 Jatin Giron MD [address] [facility] [id number] [place] [address] Consulting Physician Family Medicine 02/11/20 Ashlyn Chaparro NP [address] [place] [id number] Nurse Practitioner Medical Oncology 04/21/25 documented as of this encounter
--- OUTSIDE RECORDS SUMMARY | 2025-06-14 10:45 | XMS_ITS | Clinical Summary ---
Author Organization [facility] Address [address] [place] [address] Care Team Providers [place] Name Role Phone Christiano Kidd MD Unavailable [phone] Malcom Ramirez MD Unavailable [phone] Jatin Carver MD Unavailable [phone] Adryan Carver MD Unavailable [phone] Jatin Giron MD Unavailable [phone] Monica Harvey Primary Care Provider [phone] Ashlyn Chaparro NP Unavailable [phone] Allergies No known active allergies Medications omega-3 [...] EVERY DAY 48 mL 2 4 Active lisinopriL (PRINIVIL,ZESTRIL) 10 mg tabletIndications: 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) Take 1 tablet (10 mg total) by mouth daily 90 tablet 2 4 Active gabapentin (NEURONTIN) 800 mg tablet Take 1 tablet (800 mg total) by mouth 3 (three) times a day 270 tablet 2 4 Active metFORMIN (GLUCOPHAGE) 500 mg tabletIndications: 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) Take 1 tablet (500 mg total) by mouth 2 (two) times a day with meals 180 tablet 2 4 Active omeprazole (PriLOSEC) 20 mg capsuleIndications :Gastroesophageal reflux disease with esophagitis, unspecified whether hemorrhage TAKE 1 CAPSULE BY MOUTH EVERY DAY BEFORE BREAKFAST 90 capsule 2 5 Active rosuvastatin (CRESTOR) 10 mg tablet TAKE 1 TABLET BY MOUTH EVERY DAY 90 tablet 1 5 Active valACYclovir (VALTREX) 1 gram tabletIndications: HSV (herpes simplex virus) infection TAKE 1 TABLET BY MOUTH EVERY DAY 90 tablet 1 5 Active levothyroxine (SYNTHROID) 50 mcg tabletIndications: Acquired hypothyroidism TAKE 1 TABLET (50 MCG TOTAL) BY MOUTH THERAPY TECHNICIAN BEFORE BREAKFAST 90 tablet 2 5 Active ferrous sulfate 325 mg (65 mg of elemental iron) tabletIndications: Iron Deficiency Anemia,taking 2 times a week Take 1 tablet (325 mg total) by mouth daily with breakfast 5 Active alendronate (FOSAMAX) 70 mg tabletIndications: Osteopenia of lumbar spine TAKE 1 TAB BY MOUTH EVERY 7 DAYS IN MORNING WITH WATER ON EMPTY STOMACH DON'T LIE DOWN FOR 30 MINS 12 tablet [address] (CYMBALTA) 60 mg capsuleIndications :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 180 capsule 1 5 Active Active Problems Problem Noted [...] straining as that can precipitate cardiac events Family history of colon cancer 01/06/2025 Neuropathy [...] - Lab work has been sent to [email or web address] for you to get your B12 and folate levels checked Assessment & Plan (08/29/2024 8:09 PM FOUNDRY OPERATOR): 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 Continue gabapentin 800 t.i.d. in the Cymbalta 60 mg b.i.d. she is also on B12 supplementation Bilateral impacted cerumen 01/03/2024 Assessment & Plan [...] 08/25/2023 Assessment & Plan (08/25/2023 2:29 PM FOUNDRY OPERATOR): This is a significant, separately identifiable problem [...] as her mom's walker. X-rays done at [facility] were negative. Has an appointment with Orthopedics but hoping to get MRI prior to that visit due to possible derangement of the internal working of the knee. Suspect meniscus verses PCL tear. Will place order for MRI right knee to be done at [facility]. Vitamin D deficiency 08/25/2023 Assessment & Plan (12/27/2023 1:07 AM CDT): Supplement Assessment & Plan (08/25/2023 2:29 PM FOUNDRY OPERATOR): Supplement Nondisplaced fracture of fif th right metatarsal bone with routine healing 09/15/2021 Assessment & Plan (09/15/2021 11:21 PM FOUNDRY OPERATOR): Referral to orthopedics for this fracture. Continue [...] then return to the office to reasses. Chronic right shoulder pain 11/27/2020 Assessment & Plan (11/27/2020 9:20 PM FOUNDRY OPERATOR): This is a significant, separately identifiable problem that was evaluated and managed on the same day as the wellness exam Per patient - following with Ortho Dr. Perez. He has encouraged PT for RC tear. She has been resistant but willing. Order provided. [facility] referral sent. LFT elevation 08/15/2020 Breast cancer screening by mammogram 05/31/2020 Assessment & Plan (12/27/2023 1:08 AM CDT): Mammogram order provided Assessment & Plan (08/25/2023 2:28 PM FOUNDRY OPERATOR): Mammogram order provided Assessment & Plan (12/22/2022 [...] PPI Assessment & Plan (11/27/2020 9:16 PM FOUNDRY OPERATOR): Continue PPI Assessment & Plan (05/31/2020 9:13 [...] relief Assessment & Plan (11/27/2020 9:19 PM FOUNDRY OPERATOR): Continue flonase/antihistamine prn Assessment & Plan (05/31/2020 [...] month. Assessment & Plan (09/15/2021 11:21 PM FOUNDRY OPERATOR): Continue per Oncology. She is under close surveillance Assessment & Plan (04/08/2021 12:03 AM CDT): Continue per ONC Active surveillance Assessment & Plan (11/27/2020 9:16 PM FOUNDRY OPERATOR): Continue per ONC Has imaging for close monitoring in december Assessment & Plan (09/17/2020 9:46 AM FOUNDRY OPERATOR): Active treatment/surveillance with the oncologist. 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 Imaging today. Continue with close monitoring Assessment & Plan (01/26/2020 9:53 PM CDT): Continue per ONC BMI 27.0-27.9,adult 08/16/2019 Overview (08/16/2024): Weight/BMI is in healthy range. Continue healthy lifestyle to maintain. Assessment & Plan (08/29/2024 8:08 PM FOUNDRY OPERATOR): Weight/BMI is in healthy range. Continue healthy lifestyle to maintain. Assessment & Plan (01/03/2024 3:50 PM CDT): Weight/BMI is in healthy range. Continue healthy lifestyle to maintain. Assessment & Plan (12/27/2023 1:08 AM CDT): Weight/BMI is in healthy range. Continue healthy lifestyle to maintain. Assessment & Plan (08/25/2023 2:27 PM FOUNDRY OPERATOR): Weight/BMI is in healthy range. Continue healthy lifestyle to maintain. Assessment & Plan (05/31/2020 9:17 AM CDT): Weight/BMI is in healthy range. Continue healthy lifestyle to maintain. Assessment & Plan (08/16/2019 2:34 PM FOUNDRY OPERATOR): Weight/BMI is in healthy range. Continue healthy [...] Plan (12/27/2023 1:07 AM CDT): Patient with Trezevant metastatic adenocarcinoma colorectal cancer with a metastatic [...] surveillance Assessment & Plan (08/16/2019 10:49 PM FOUNDRY OPERATOR): Still awaiting recommendations as vaginal mass showed [...] September Assessment & Plan (08/29/2024 8:08 PM FOUNDRY OPERATOR): Patient with osteopenia of the lumbar spine. [...] vitamin-D. Assessment & Plan (09/15/2021 11:21 PM FOUNDRY OPERATOR): Continue Fosamax weekly calcium and vitamin-D. Continue to monitor DEXA. Assessment & Plan (06/05/2021 11:05 AM CDT): Check DXA Assessment & Plan (04/08/2021 12:04 AM CDT): Continue Fosamax Assessment & Plan (11/27/2020 9:17 PM FOUNDRY OPERATOR): Continue Fosamax, calcium and Vit D. DXA [...] US. If persistent, may consider referral to [facility] HSV (herpes simplex virus) infection 02/08/2019 Overview [...] intake Assessment & Plan (08/29/2024 8:07 PM FOUNDRY OPERATOR): Stressed importance of continued A1c control to minimize the residential effects of diabetes. Bring accuchecks to office [...] of continued A1c control to minimize the residential effects of diabetes. Bring accuchecks to office [...] A1c control to minimize the exterminator helper effects of diabetes. Bring accuchecks to office when instructed to do so. Check A1c about every 3-6 months. Take medication as prescribed. Get annual eye exam. Encouraged PADMINI/Statin if able to tolerate. Encouraged weight control and encouraged diabetic diet and exercise. Continue metformin b.i.d. Assessment & Plan (06/23/2022 6:39 PM CDT): Stressed importance of continued A1c control to minimize the residential effects of diabetes. Bring accuchecks to office [...] A1c control to minimize the exterminator helper effects of diabetes. Bring accuchecks to office when instructed to do so. Check A1c about every 3-6 months. Take medication as prescribed. Get annual eye exam. Encouraged PADMINI/Statin if able to tolerate. Encouraged weight control and encouraged diabetic diet and exercise. Assessment & Plan (06/05/2021 10:58 AM CDT): Stressed importance of continued A1c control to minimize the exterminator helper effects of diabetes. Bring accuchecks to office when instructed to do so. Check A1c about every 3-6 months. Take medication as prescribed. Get annual eye exam. Encouraged PADMINI/Statin if able to tolerate. Encouraged weight control and encouraged diabetic diet and exercise. Continue metformin Assessment & Plan (04/08/2021 12:02 AM CDT): Stressed importance of continued A1c control to minimize the residential effects of diabetes. Bring accuchecks to office when instructed to do so. Check A1c about every 3-6 months. Take medication as prescribed. Get annual eye exam. Encouraged PADMINI/Statin if able to tolerate. Encouraged weight control and encouraged diabetic diet and exercise. Assessment & Plan (11/27/2020 9:17 PM FOUNDRY OPERATOR): Stressed importance of continued A1c control to minimize the residential effects of diabetes. Bring accuchecks to office [...] A1c control to minimize the exterminator helper effects of diabetes. Bring accuchecks to office when instructed to do so. Check A1c about every 3-6 months. Take medication as prescribed. Get annual eye exam. Encouraged PADMINI/Statin if able to tolerate. Encouraged weight control and encouraged diabetic diet and exercise. Due for labs Assessment & Plan (01/26/2020 9:53 PM CDT): Stressed importance of continued A1c control to minimize the exterminator helper effects of diabetes. Bring accuchecks to office when instructed to do so. Check A1c about every 3-6 months. Take medication as prescribed. Get annual eye exam. Encouraged PADMINI/Statin if able to tolerate. Encouraged weight control and encouraged diabetic diet and exercise. Continue metformin Assessment & Plan (06/30/2019 12:08 AM CDT): Stressed importance of continued A1c control to minimize the exterminator helper effects of diabetes. Bring accuchecks to office when instructed to do so. Check A1c about every 3-6 months. Take medication as prescribed. Get annual eye exam. Encouraged PADMINI/Statin if able to tolerate. Encouraged weight control and encouraged diabetic diet and exercise. Check labs Assessment & Plan (05/15/2019 3:12 PM CDT): Stressed importance of continued A1c control to minimize the residential effects of diabetes. Bring accuchecks to office when instructed to do so. Check A1c about every 3-6 months. Take medication as prescribed. Get annual eye exam. Encouraged PADMINI/Statin if able to tolerate. Encouraged weight control and encouraged diabetic diet and exercise. Assessment & Plan (02/21/2019 5:15 PM CDT): Stressed importance of continued A1c control to minimize the exterminator helper effects of diabetes. Bring accuchecks to office [...] alcohol Assessment & Plan (08/29/2024 8:07 PM FOUNDRY OPERATOR): Encouraged patient to follow low fat/low chol diet like the Mediterranean diet. Increase good fats in the diet. Increase exercise. Monitor labs as needed. Continue Crestor Assessment & Plan (12/27/2023 1:06 AM CDT): Stressed importance of continued A1c control to minimize the residential effects of diabetes. Bring accuchecks to office [...] 10 Assessment & Plan (08/25/2023 2:26 PM FOUNDRY OPERATOR): Stressed importance of continued A1c control to minimize the exterminator helper effects of diabetes. Bring accuchecks to office [...] of continued A1c control to minimize the residential effects of diabetes. Bring accuchecks to office [...] statin Assessment & Plan (11/27/2020 9:18 PM FOUNDRY OPERATOR): Encouraged patient to follow fat/low chol diet [...] consumption Assessment & Plan (08/29/2024 8:07 PM FOUNDRY OPERATOR): Bp is stable/in acceptable range for any co-morbidities. Encouraged to limit sodium intake and exercise for weight control. Stressed importance of continued A1c control to minimize the residential effects of diabetes. Bring accuchecks to office [...] of continued A1c control to minimize the residential effects of diabetes. Bring accuchecks to office when instructed to do so. Check A1c about every 3-6 months. Take medication as prescribed. Get annual eye exam. Encouraged PADMINI/Statin if able to tolerate. Encouraged weight control and encouraged diabetic diet and exercise. Continue lisinopril Assessment & Plan (08/25/2023 2:26 PM FOUNDRY OPERATOR): Bp is stable/in acceptable range for any [...] lisinopril Assessment & Plan (09/15/2021 11:19 PM FOUNDRY OPERATOR): Bp is stable/in acceptable range for any co-morbidities. Encouraged to limit sodium intake and exercise for weight control. Continue with lisinopril Stressed importance of continued A1c control to minimize the residential effects of diabetes. Bring accuchecks to office [...] lisinopril Assessment & Plan (11/27/2020 9:16 PM FOUNDRY OPERATOR): Bp is stable/in acceptable range for any [...] gabapentin Assessment & Plan (08/25/2023 2:27 PM FOUNDRY OPERATOR): Persistent neuropathy that really intensified when on [...] monitor. Assessment & Plan (09/15/2021 11:20 PM FOUNDRY OPERATOR): Using gabapentin 800 mg t.i.d. and Cymbalta [...] of continued A1c control to minimize the residential effects of diabetes. Bring accuchecks to office when instructed to do so. Check A1c about every 3-6 months. Take medication as prescribed. Get annual eye exam. Encouraged PADMINI/Statin if able to tolerate. Encouraged weight control and encouraged diabetic diet and exercise. Continue gabapentin Assessment & Plan (11/27/2020 9:15 PM FOUNDRY OPERATOR): Stressed importance of continued A1c control to minimize the exterminator helper effects of diabetes. Bring accuchecks to office [...] Cymbalta Assessment & Plan (08/16/2019 10:49 PM FOUNDRY OPERATOR): Stable with gabapentin 600mg tid. Will send [...] of continued A1c control to minimize the residential effects of diabetes. Bring accuchecks to office [...] monitor. Assessment & Plan (08/29/2024 8:08 PM FOUNDRY OPERATOR): Depression symptoms are stable with Cymbalta Assessment & Plan (12/27/2023 1:06 AM CDT): Stable with Cymbalta Assessment & Plan (12/22/2022 9:33 AM CDT): Continue Cymbalta Assessment & Plan (06/23/2022 6:41 PM CDT): Continue Cymbalta Assessment & Plan (09/15/2021 11:20 PM FOUNDRY OPERATOR): Continue the Cymbalta Assessment & Plan (06/05/2021 11:05 AM CDT): Continue Cymbalta. Assessment & Plan (04/08/2021 12:03 AM CDT): Stable with cymbalta Assessment & Plan (11/27/2020 9:18 PM FOUNDRY OPERATOR): Continue cymbalta Assessment & Plan (05/31/2020 9:16 [...] prescribed Assessment & Plan (08/29/2024 8:08 PM FOUNDRY OPERATOR): Continue levothyroxine. Monitor labs. Assessment & Plan (12/27/2023 1:06 AM CDT): Continue levothyroxine. Monitor labs. Assessment & Plan (08/25/2023 2:27 PM FOUNDRY OPERATOR): Continue levothyroxine. Monitor labs. Assessment & Plan (12/22/2022 9:33 AM CDT): Continue levothyroxine. Monitor labs. Assessment & Plan (06/23/2022 6:41 PM CDT): Continue levothyroxine. Monitor labs. Assessment & Plan (12/16/2021 10:23 AM CDT): Continue Cymbalta Assessment & Plan (09/15/2021 11:20 PM FOUNDRY OPERATOR): Continue levothyroxine Assessment & Plan (06/05/2021 10:52 AM CDT): Continue levothyroxine. Monitor labs. Assessment & Plan (04/08/2021 12:02 AM CDT): Continue levothyroxine. Monitor labs. Assessment & Plan (11/27/2020 9:17 PM FOUNDRY OPERATOR): Continue levothyroxine Assessment & Plan (05/31/2020 9:15 [...] Problem Noted Date Diagnosed Date Resolved Date Screening for colon cancer 01/06/2025 0 05/19/2025 Need for influenza vaccination 08/29/2024 05/19/2025 Assessment & Plan (08/29/2024 8:09 PM FOUNDRY OPERATOR): Flu vaccine updated in the office today Medicare annual wellness visit, subsequent 08/29/2024 05/19/2025 Assessment & Plan (08/29/2024 8:09 PM FOUNDRY OPERATOR): Encouraged healthy lifestyle, good nutrition and exercise. Encouraged Calcium and Vitamin D and weight bearing exercise for bone health. Reviewed immunizations. Reviewed age appropirate screenings. Medicare Wellness Documentation is completed within the chart Positive depression screening 12/30/2023 01/03/2024 Need for influenza vaccination 08/25/2023 12/27/2023 Assessment & Plan (08/25/2023 2:29 PM FOUNDRY OPERATOR): Flu vaccine updated in the office today Medicare annual wellness visit, subsequent 06/10/2023 12/27/2023 Assessment & Plan (08/25/2023 2:25 PM FOUNDRY OPERATOR): Encouraged healthy lifestyle, good nutrition and exercise. Encouraged Calcium and Vitamin D and weight bearing exercise for bone health. Reviewed immunizations. Reviewed age appropirate screenings. Medicare Wellness Documentation is completed within the chart Annual physical exam 12/22/2022 025 Assessment & Plan (02/07/2025 9:06 AM CDT): [...] health. Reviewed immunizations Reviewed age appropirate screenings. BMI 28.0-28.9,adult 12/10/2022 12/27/19 24 Assessment & Plan (12/10/2022 10:07 AM FOUNDRY OPERATOR): Weight/BMI is in healthy range. Continue healthy lifestyle. BMI 28.0-28.9,adult 06/22/2022 12/11/19 23 Assessment & Plan (06/23/2022 6:45 PM CDT): Weight/BMI is in healthy range. Continue healthy lifestyle to maintain. Neuropathy due to type 2 diabetes mellitus 12/16/2021 12/16/2021 Hyperlipidemia 12/16/2021 12/16/2021 Flu vaccine need 09/15/2021 06/22/2022 Assessment & Plan (09/15/2021 11:21 PM FOUNDRY OPERATOR): Flu vaccine updated in office BMI 29.0-29.9,adult 09/05/2021 06/22/20 22 Assessment & Plan (12/16/2021 10:24 AM CDT): Weight/BMI is in healthy range. Continue healthy lifestyle to maintain. Assessment & Plan (09/05/2021 1:24 PM FOUNDRY OPERATOR): Weight/BMI is in healthy range. Continue healthy [...] healthy range. Continue healthy lifestyle to maintain. Menopause 06/05/2021 05/19/2025 Assessment & Plan (12/27/2023 1:08 AM CDT): Check DEXA Assessment & Plan (06/05/2021 11:03 AM CDT): Recheck DXA Right groin pain 06/05/2021 05/19/2025 Assessment & Plan (06/05/2021 11:02 AM CDT): This is a significant, separately identifiable problem that was evaluated and managed on the same day as the wellness exam Groin pain with rising from chair and getting off floor. Start with checking xray and determine if needs further evaluation Medicare annual wellness visit, subsequent 06/05/2021 12/09/2022 [...] completed within the chart Bilateral impacted cerumen 06/05/2021 0 05/19/2025 Assessment & Plan (07/01/2021 2:01 PM CDT): Ears cleared of cerumen in the office. Hearing improved. Assessment & Plan (06/05/2021 10:59 AM CDT): This is a significant, separately identifiable problem that was evaluated and managed on the same day as the wellness exam Start DeBrox otc and return to the office in 2-3 weeks to have ears rechecked and washed out if needed. B12 deficiency 04/08/2021 06/05/2021 Assessment & Plan (04/08/2021 12:05 AM CDT): Check labs Claudication ([facility]) 04/07/202112/09 Assessment & Plan (04/08/2021 12:00 AM CDT): Leg pain seem consistent with claudication. Recommend GERA study. Prefers at [facility] BMI 26.0-26.9,adult 04/06/2021 05/19/20 25 Assessment & Plan (02/07/2025 9:54 AM CDT): Weight/BMI is in healthy range. Continue healthy lifestyle to maintain. Assessment & Plan (04/06/2021 11:45 AM CDT): Weight/BMI is in healthy range. Continue healthy lifestyle to maintain. BMI 27.0-27.9,adult 11/27/2020 04/06/20 21 Assessment & Plan (11/27/2020 8:38 AM FOUNDRY OPERATOR): Weight/BMI is in healthy range. Continue healthy lifestyle to maintain. Fatigue 11/27/2020 05/19/2025 Assessment & Plan (08/25/2023 2:28 PM FOUNDRY OPERATOR): Probably multifactorial. Check labs and followup to re-evaluate Assessment & Plan (12/22/2022 9:35 AM CDT): Probably multifactorial. Check labs and followup to re-evaluate Assessment & Plan (06/23/2022 6:44 PM CDT): Probably multifactorial. Check labs and followup to re-evaluate Assessment & Plan (04/08/2021 12:04 AM CDT): Probably multifactorial. Check labs and followup to re-evaluate Assessment & Plan (11/27/2020 9:20 PM FOUNDRY OPERATOR): Probably multifactorial. Check labs and followup to re-evaluate Hyperlipidemia 11/27/2020 04/07/2021 Annual physical exam 11/24/2020 022 Assessment & Plan (12/16/2021 10:24 AM CDT): Encouraged healthy lifestyle, good nutrition and exercise. Encouraged Calcium and Vitamin D and weight bearing exercise for bone health. Reviewed immunizations Reviewed age appropirate screenings. Assessment & Plan (11/27/2020 9:18 PM FOUNDRY OPERATOR): Encouraged healthy lifestyle, good nutrition and exercise. Encouraged Calcium and Vitamin D and weight bearing exercise for bone health. Reviewed immunizations Reviewed age appropirate screenings. Nasal congestion 09/11/2020 02/07/2025 Assessment & Plan (09/17/2020 9:47 AM FOUNDRY OPERATOR): Discussed symptoms with patient. With COVID in the community it would not be wrong to test but her symptoms seem most consistent with a cold/allergies at this point. Recommend [id number] treatment and supportive therapy. If she starts running fever chills sweats notes change in her taste or smell, starts noticing a cough or a progression in symptoms she is to call and we will set her up for testing. She is in agreement with this plan. Assessment & Plan (09/11/2020 2:09 PM FOUNDRY OPERATOR): Will send patient to [facility] for Covid-19 testing. The patient was advised to quarantine at least 10 days from symptom onset, but this determination will depend on result of testing. They were advised to contact us in the next 72h if they have not heard results of testing. They were advised to report to the ER if worsening. Fever 09/11/2020 11/27/2020 Assessment & Plan (09/11/2020 2:10 PM FOUNDRY OPERATOR): Will send patient to [facility] for Covid-19 testing. 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); Hypertension associated with diabetes (HCC); Type 2 diabetes mellitus with hyperlipidemia (HCC); Moderate episode of recurrent major depressive disorder (HCC); Osteopenia of lumbar spine; Seasonal allergies; Acquired hypothyroidism; Gastroesophageal reflux disease with esophagitis without hemorrhage; Numbness and tingling in left hand; Breast cancer screening by mammogram; BMI 27.0-27.9,adult 04/25/2025 Telephone [facility] [address] [place] [phone] Selena Anne RN 04/21/2025 11:00 AM CDT Office Visit [facility] [address] [place] [phone] Ashlyn Chaparro NP Elevated carcinoembryonic antigen (CEA) (Primary Dx); Adenocarcinoma (HCC); 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) 04/21/2025 10:30 AM CDT Lab [facility] at [address] [id number] Adenocarcinoma (HCC); 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); Elevated carcinoembryonic antigen (CEA) 03/29/2025 Orders Only [address] [place] [phone] ProviderGlenn MD 03/15/2025 Results Follow-Up [address] [place] [address] Monica Harvey PA Creatinine, EGFR - Estimated Glomerular Filtration Rate 03/15/2025 Orders Only [facility] [address] [facility] [address] [place] [address] Provider, MD Glenn from Last 3 Months Immunizations Immunization Administration [...] Comments Hyperlipidemia Hypertension Type 2 diabetes mellitus Hypothyroidism Dysphagia Adenocarcinoma (HCC) 07/30/2019 Colon cancer [...] on file Legal Sex Female 11:59 PM FOUNDRY OPERATOR Gender Identity Not on file Sexual Orientation Not on file Obstetrics History Para Term AB IAB SAB Ectopic Multiple Livin g Live Births 2 2 2 2 2 Date Outcome GA Total Labor Labor/2nd/3rd Weight Sex Type Anes PTL Rere A1 A5 Name Clin Term Term Comments 09/25/29 Last Filed Vital Signs Vital Sign Reading Time Taken Comments Blood Pressure 118/72 05/12/2025 9:35 AM CDT Pulse 65 05/12/2025 9:35 AM CDT Temperature 37 C (98.6 F) 05/12/2025 9:35 AM CDT Respiratory Rate 18 05/12/2025 9:35 AM CDT Oxygen Saturation 94% 05/12/2025 9:35 AM CDT Inhaled Oxygen Concentration - - Weight 64 kg (141 lb 3.2 oz) 05/12/2025 9:35 AM CDT Height 152.4 cm (5') 05/12/2025 9:35 AM CDT Body Mass Index 27.58 05/12/2025 9:35 AM CDT Plan of Treatment Health Maintenance Due Date Last Done Comments Hepatitis B Screening 02/19/1970 Zoster Vaccine (1 of 2) 11/30/2012 10/05/2012 DTaP/Tdap/Td Vaccine (2 - Td or Tdap) 11/12/2020 11/12/2010 Covid-19 Vaccine (3 - Pfizer risk series) 01/19/2021 12/22/2020, 12/01/2020 Foot Exam 05/31/2021 05/31/2020, 02/08/2019 Osteoporosis Screening-Bone Density Scan 01/29/2024 01/28/2022, 05/01/2019 Influenza Vaccine (#1) 2025 , 08/13/2023, 07/31/2022, Additional history exists Hemoglobin A1C 08/07/2025 02/04/2025, 08/07, 08/13/2023, Additional history exists Breast Cancer Screening-Mammogram 09/09/2025 09/09/2024, 04/16/2023, 01/28/2022, Additional history exists Albumin Creatinine Ratio, Urine 02/04/2026 02/04/2025, 08/30/2024, 12/19/2022, Additional history exists Lipid Panel 02/04/2026 02/04/2025, 08/07, 12/19/2022, Additional history exists Well Visit 65+ 02/07/2026 02/07/2025, 08/06, 12/15/2023, Additional history exists Dilated Eye Exam 03/22/2026 03/22/2025, , 12/17/2022, Additional history exists eGFR 04/21/2026 04/21/2025, 0511/2024, 01/18/2025, Additional history exists Depression Screening 05/12/2026 05/12/2025, 02/07/2025, 08/16/2024, Additional history exists Fall Risk Assessment 05/12/2026 05/12/2025, 02/07/2025, 02/01/2025, Additional history exists Colon Cancer Screening-Colonoscopy 02/02/2032 02/01/2025, 08/05/2019 Pneumococcal vaccine 65+ Completed 09/14/2019, 02/2018 Hepatitis C Screening Completed 05/10/2020 Colon Cancer Screening-CT Colonography Discontinued 02/01/2025, 08/05/2019 Colon Cancer Screening-DNA Stool Discontinued 02/02/20 25, 08/05/2019 Colon Cancer Screening-FIT Discontinued 02/01/2025, Colon Cancer Screening-Sigmoidoscopy Discontinued 02/01/2025, 08/05/2019 Medical Devices Implanted Type Area Tier Lift Operator Device Identifier Shelf Expiration Date Model / Serial / Lot Port Chest Wall Explanted Type Area Tier Lift Operator Device Identifier Shelf Expiration Date Model / Serial / Lot [employer] [id number] Xcela 8fr 1.6mm 1 Lumen Power Injectable Attach Catheter Fill - [id number] Implanted:Qty: 1 on 09/08/2019 at [facility] Explanted:Qty: 1 on 01/10/2021 [employer] 04/12/2024 [id number] / / [id number] Description:IR port removal on 01/10/21 Procedures Procedure Name Priority Date/Time Associated Diagnosis Comments EGFR Routine 04/21/2025 10:23 AM CDT Elevated carcinoembryonic antigen (CEA) Adenocarcinoma (HCC) 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) DIFFERENTIAL AUTO Routine 04/21/2025 10:23 AM CDT Adenocarcinoma (HCC) 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) CBC WITH AUTO DIFFERENTIAL Routine 04/21/2025 10:23 AM CDT Adenocarcinoma (HCC) 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) IRON PROFILE W/ IBC Routine 04/21/2025 10:23 AM CDT Adenocarcinoma (HCC) 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) FERRITIN Routine 04/21/2025 10:23 AM CDT Adenocarcinoma (HCC) 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) CEA Routine 04/21/2025 10:23 AM CDT Elevated carcinoembryonic antigen (CEA) Adenocarcinoma (HCC) 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) COMPREHENSIVE METABOLIC PANEL Routine 04/21/2025 10:23 AM CDT Elevated carcinoembryonic antigen (CEA) Adenocarcinoma (HCC) 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) HM DIABETES EYE EXAM Routine 03/22/2025 8:02 AM CDT HEMOGLOBIN A1C Routine 02/04/2025 9:03 AM CDT Type 2 diabetes mellitus with hyperlipidemia (HCC) LIPID PANEL Routine 02/04/2025 9:03 AM CDT Type 2 diabetes mellitus with hyperlipidemia (HCC) ALBUMIN CREATININE RATIO, URINE Routine 02/04/2025 9:03 AM CDT Type 2 diabetes mellitus with hyperlipidemia (HCC) COLONOSCOPY 02/01/2025 10:46 AM CDT SCREENING MAMMOGRAM BILATERAL W AUDI Schedule Routine, Read Routine (OP Routine) 09/09/2024 Breast cancer screening by mammogram DEXA AXIAL SKELETON BONE DENSITY 1 OR MORE SITES Schedule Routine, Read Routine (OP Routine) 01/28/2022 Menopause HEPATITIS C ANTIBODY Routine 05/10/2020 10:50 AM CDT Hepatic insufficiency (HCC) from Last 3 Months or Most Recently Relevant to Health Maintenance Results * eGFR (04/21/2025 10:23 AM CDT) eGFR 68 >=60 mL/min/1. 73 m2 Comment: Interpretive Data [...] was last reviewed 2021. Testing performed by: [address] [address] Blood 04/21/2025 10:2 3 AM CDT 04/21/2025 10:25 AM CDT Ashlyn Chaparro SECTION LEADER AND MACHINE SETTER LAB BLOOD ORDERABLES Final Result [facility] [address] [facility] Department [place] [address] * Differential, auto (04/21/2025 10:23 AM CDT) Neutrophil abs 4.46 1.50 - 6.50 K/cumm Comment:Testing performed by : [address] [address] Imm gran abs 0.03 0.00 - 0.10 K/cumm ISAI Comment:Testing performed by : [address] [address] Lymphocyte abs 2.64 0.80 - 3.30 K/cumm ISAI Comment:Testing performed by : [address] [address] Monocyte abs 0.49 0.20 - 0.80 K/cumm ISAI Comment:Testing performed by : [address] [address] Eosinophil abs 0.17 0.00 - 0.50 K/cumm ISAI Comment:Testing performed by : [address] [address] Basophil abs 0.06 0.00 - 0.10 K/cumm ISAI Comment:Testing performed by : [address] [address] Neutrophil pct 56.8 % ISAI Comment: Interpretive Data Percent cell count reference ranges are not reported, since discordance with absolute values may lead to misinterpretation of CBC data. Current Interpretive Data was last revised on 2018. Testing performed by: [address] [address] Imm gran pct 0.4 % [facility] Comment: Interpretive Data Percent cell count reference ranges are not reported, since discordance with absolute values may lead to misinterpretation of CBC data. Current Interpretive Data was last revised on 2018. Testing performed by: [address] [address] Lymphocyte pct 33.6 % [facility] Comment: Interpretive Data Percent cell count reference ranges are not reported, since discordance with absolute values may lead to misinterpretation of CBC data. Current Interpretive Data was last revised on 2018. Testing performed by: [address] [address] Monocyte pct 6.2 % [facility] Comment: Interpretive Data Percent cell count reference ranges are not reported, since discordance with absolute values may lead to misinterpretation of CBC data. Current Interpretive Data was last revised on 2018. Testing performed by: [address] [address] Eosinophil pct 2.2 % [facility] Comment: Interpretive Data Percent cell count reference ranges are not reported, since discordance with absolute values may lead to misinterpretation of CBC data. Current Interpretive Data was last revised on 2018. Testing performed by: [address] [address] Basophil pct 0.8 % [facility] Comment: Interpretive Data Percent cell count reference ranges are not reported, since discordance with absolute values may lead to misinterpretation of CBC data. Current Interpretive Data was last revised on 2018. Testing performed by: [address] [address] Blood 04/21/2025 10:2 3 AM CDT 04/21/2025 10:25 AM CDT us Tracie Raphael MD LAB BLOOD ORDERABLES Final Result [facility] [address] [facility] Department [place] [address] * (ABNORMAL) Iron profile w/ IBC (04/21/2025 10:23 AM CDT) Pathologist [facility] Iron 60 35 - 145 mcg/dL Comment:Testing performed by : [address] [address] TIBC 308 250 - 400 mcg/dL ISAI EVANS Comment:Testing performed by : [address] [address] Transferrin saturation 19(L) 20 - 50 % [facility]AI EVANS Comment:Testing performed by : [address] [address] Blood 04/21/2025 10:2 3 AM CDT 04/21/2025 11:35 AM CDT us Tracie Raphael MD LAB BLOOD ORDERABLES Final Result Performing Organization Address City/State/[facility] Co de Phone Number ISAI [address] [facility] Department [place] [address] * (ABNORMAL) CBC with auto differential (04/21/2025 10:23 AM CDT) [facility] WBC 7.85 3.80 - 9.90 K/cumm Comment:Testing performed by : [address] [address] Hgb 12.5 11.9 - 15.5 g/dL ISAI EVANS Comment:Testing performed by : [address] [address] Hct 37.5 35.6 - 45.5 % [facility]AI EVANS Comment:Testing performed by : [address] [address] Plt 391 150 - 400 K/cumm ISAI EVANS Comment:Testing performed by : [address] [address] MPV 8.5(L) 9.1 - 12.3 fL ISAI EVANS Comment:Testing performed by : [address] [address] RBC 4.06 3.90 - 5.20 M/cumm ISAI Comment:Testing performed by : [address] [address] MCV 92.4 81.3 - 96.4 fL [facility]AI Comment:Testing performed by : [address] [address] MCH 30.8 27.1 - 33.3 pg ISAI Comment:Testing performed by : [address] [address] MCHC 33.3 32.3 - 35.7 g/dL ISAI Comment:Testing performed by : [address] [address] RDW CV 12.9 11.1 - 14.9 % ISAI Comment:Testing performed by : [address] [address] RDW SD 43.2 35.7 - 48.1 fL [facility]AI Comment:Testing performed by : [address] [address] NRBC abs 0.00 0.00 - 0.01 K/cumm ISAI Comment:Testing performed by : [address] [address] ANC Prelim 4.46 1.50 - 6.50 K/cumm [facility] Comment: Interpretive Data The rapid ANC is a preliminary automated count and may vary from the final ANC (Neut Abs) reported in the WBC differential that follows. Current interpretive data was last revised 2024. Testing performed by: [address] [address] Blood 04/21/2025 10:2 3 AM CDT 04/21/2025 10:25 AM CDT Tracie Raphael MD LAB BLOOD ORDERABLES Final Result [facility] EVANS [address] [facility] Department [place] [address] * Ferritin (04/21/2025 10:23 AM CDT) Pathologist [facility] Ferritin 58 13 - 150 ng/mL Comment:Testing performed by : [address] [address] Blood 04/21/2025 10:2 3 AM CDT 04/21/2025 11:35 AM CDT Tracie Raphael MD LAB BLOOD ORDERABLES Final Result Performing Organization Address [facility] de Phone Number [id number] [place] [address] * CEA (04/21/2025 10:23 AM CDT) [facility] CEA 3.0 <=5.0 ng/mL Comment: Interpretive Data: Reference Range: Non-Smokers: 0.0 5.0 ng/mL Smokers: 0.0 6.5 ng/mL The Christine CEA assay procedure was used. Results from different manufacturers or methods may not be comparable. Serial testing should be performed using the same method. Current interpretive data was last revised 2023. Testing performed by: [address] [address] Blood 04/21/2025 10:2 3 AM CDT 04/21/2025 11:35 AM CDT Ashlyn Chaparro NP LAB BLOOD ORDERABLES Final Result Performing Organization Address [facility] Co de Phone Number [address] [place] [address] * Comprehensive metabolic panel (04/21/2025 10:23 AM CDT) [facility] Sodium 138 135 - 145 mmol/L Comment:Testing performed by : [address] [address] Potassium, pl 4.6 3.3 - 4.9 mmol/L ISAI EVANS Comment:Testing performed by : [address] [address] Chloride 103 97 - 110 mmol/L ISAI Comment:Testing performed by : [address], [place]., [address] CO2 24 22 - 32 mmol/L ISAI Comment:Testing performed by : [address] [address] Anion gap 11 2 - 15 mmol/L ISAI Comment:Testing performed by : [address], [place]., [address] BUN 21 6 - 25 mg/dL ISAI Comment:Testing performed by : [address], [place]., [address] Creatinine 0.90 0.60 - 1.10 mg/dL ISAI Comment:Testing performed by : [address], [place]., [address] Glucose 128 70 - 199 mg/dL ISAI Comment: Interpretive [...] classification and Diagnosis of Diabetes Diabetes Care 202; 46: S19-S40. Current interpretive data was last revised 2022. Testing performed by: [address] [address] Calcium 9.8 8.5 - 10.3 mg/dL ISAI Comment:Testing performed by : [address] [address] Bilirubin, total 0.4 0.1 - 1.2 mg/dL ISAI Comment:Testing performed by : [address] [address] Protein, pl 7.3 6.5 - 8.5 g/dL ISAI Comment:Testing performed by : [address] [address] Albumin 4.7 3.5 - 5.0 g/dL ISAI Comment:Testing performed by : [address] [address] Alk phos 53 40 - 130 Units/L ISAI Comment:Testing performed by : [address] [address] ALT 21 7 - 45 Units/L ISAI Comment:Testing performed by : [facility], [address] [place] [address]., [address] AST 20 10 - 45 Units/L ISAI Comment:Testing performed by : [address] [address] Blood 04/21/2025 10:2 3 AM CDT 04/21/2025 10:25 AM CDT Ashlyn Chaparro NP LAB BLOOD ORDERABLES Final Result [facility] [address] [facility] Department [place] [address] * DIABETES EYE EXAM (03/22/2025 8:02 AM CDT) SCRIBED DIABETIC DILATED EYE EXAM Normal Impressions Loly HuangDAWN - 03/22/2025 8:02 AM CDT Normal appearance with out retinal tears,breaks,holes or mass. No retinopathy detected. Historical Provider HEALTH MAINTENANCE Edited Result - Final * Albumin Creatinine Ratio, Urine [...] - 02/05/2025 4:10 PM CDT Performed at: [facility] [id number] Exerciser Horse: Maurizio Pettit PhD, Phone: [phone] Monica OMALLEY LAB URINE ORDERABLES Final Result Performing Organization Address [facility] Co de Phone Number [facility] - * (ABNORMAL) Hemoglobin A1c (02/04/2025 9:03 AM CDT) Hgb A1C 6.9(H) 4.8 - 5.6 % [facility] - 01 Comment: Prediabetes: 5.7 - 6.4 Diabetes: >6.4 Glycemic control for adults with diabetes: <7.0 Blood 02/04/2025 9:03 AM CDT 02/04/2025 Narrative [facility] - 02/05/2025 7:37 AM CDT Performed at: [address] [id number] Exerciser Horse: Maurizio Pettit PhD, Phone: [phone] Monica OMALLEY LAB BLOOD ORDERABLES Final Result Performing Organization Address [facility] Co de Phone Number [facility] - * Lipid panel (02/04/2025 9:03 AM CDT) [facility] Cholesterol 110 100 - 199 mg/dL [facility] - 01 Triglycerides 147 0 - 149 mg/dL [facility] - 01 HDL Cholesterol 44 >39 mg/dL [facility] - 01 VLDL 25 5 - 40 mg/dL [facility] - 01 LDL, calculated 41 0 - 99 mg/dL [facility] - 01 Blood 02/04/2025 9:03 AM CDT 02/04/2025 Narrative [facility] - 02/05/2025 7:37 AM CDT Performed at: [address] [id number] Exerciser Horse: Maurizio Pettit PhD, Phone: [phone] Monica OMALLEY LAB BLOOD ORDERABLES Final Result [facility] - 01 * Colonoscopy (02/01/2025 10:46 AM CDT) Anatomical Region Laterality Modality Other Narrative Procedure Note Yordy Melgar MD - 02/01/2025 10:46 AM CDT [facility] GI ENDOSCOPY Patient Name: Tracey Lambert Procedure Date: 02/01/2025 10:46 AM Date of : 1950 Admit Type: Outpatient Age: 74 Gender: Female Attending MD: Yordy Melgar M.D. Room: [facility] ENDOSCOPY ROOM 03 Note Status: Finalized Procedure: [...] The scope was passed under direct vision.The [id number]-[id number] colonoscope was introduced through theanus and advanced [...] post-intervention, one hemostatic clip wassuccessfully placed. Clip hot box spotter: Toywheel. There was no bleedingat the end of [...] snare. Resected and retrieved. Clip was placed.Clip hot box spotter: Toywheel. 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 Does NOT exclude the possibility of recent exposure to HCV. 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 ADVANCE DIRECTIVE 09/29/2019 4:35 AM ADVANCE DIRECTIVE 07/27/2019 Living Lukas l * Full Code (Latest Code Status on [...] 6:47 AM 09/08/2019 12:57 PM Care Teams [place] Relationship Specialty Start Date End Date Monica Harvey PA [address] [place] [address] PCP - General Internal Medicine 01/03/24 Christiano Kidd MD Consulting Physician Urology 02/08/19 Malcom Ramirez MD Referring Physician Obstetrics and Gynecology 07/27/19 Jatin Carver MD [address] [facility] [id number] [place] [address] Medical Oncologist Gynecologic Oncology 08/25/19 Adryan Carver MD [address] [facility] [id number] [place] [address] Surgeon General Surgery 08/25/19 Jatin Giron MD [address] [facility] [phone] [place] [address] Consulting Physician Family Medicine 02/11/20 Ashlyn Chaparro NP [address] [place] [address] Nurse Practitioner Medical Oncology 04/21/25
--- OUTSIDE RECORDS SUMMARY | 2025-06-14 10:45 | XMS_ITS | Clinical Summary ---
Author Organization [facility] Address [address] [place] [address] Care Team Providers Care Parts Analyst Name Role Phone Unavailable Primary Care Provider Unavailabl e Medications rosuvastatin 5 MG tablet Take 1 tablet by mouth daily. 06/18/2018 Active Social History Tobacco Use Types Packs/Day Years Used Date Smoking Tobacco: Never Assessed Comments Unknown Sex and Gender Information Value Date Recorded Sex Assigned at Not on file Legal Sex Female 6:23 PM CDT Gender Identity Not on file Sexual Orientation Not on file Last Filed Vital Signs Vital Sign Reading Time Taken Comments Blood Pressure 98/63 05/16/2017 9:50 AM CDT Pulse 79 05/16/2017 9:50 AM CDT Temperature - - Respiratory Rate - - Oxygen Saturation - - Inhaled Oxygen Concentration - - Weight 68.5 kg (151 lb) 05/16/2017 9:50 AM CDT Height 157.5 cm (5' 2) 05/16/2017 9:50 AM CDT Body Mass Index 27.62 05/16/2017 9:50 AM CDT Plan of Treatment Health Maintenance Due Date Last Done Comments Colorectal Cancer Screening Colonoscopy (10 Years) 1950 Hepatitis C 02/19/1970 DTaP, Tdap and Td Vaccines ( 1 - Tdap) 02/19/1971 Mammogram Screening 1992 Pneumococcal Vaccine: 50+ Ye ars (1 of 1 - PCV) 02/19/2002 Zoster Vaccines (1 of 2) 02/19/2002 Dexa Scan (General) 02/19/2017 COVID-19 Vaccine ( - 2023-2 5 season) 2025 RSV Immunization or 60+ Years (1 - 1-dose 75+ series) 02/19/2027 Meningococcal B Vaccine Aged Out No l onger eligible based on patient's age to complete this topic Meningococcal Vaccine Aged Out No jennyfer wily eligible based on patient's age to complete this topic RSV Immunizations Under 20 Months Aged Out No longer eligible based on patient's age to complete this topic
--- OUTSIDE RECORDS SUMMARY | 2025-06-14 10:45 | XMS_ITS | Encounter Summary ---
Author Organization [facility] Address [address] [place] [address] Care Team Providers Care Storage Specialist Name Role Phone Christiano Kidd MD Unavailable [phone] Malcom Ramirez MD Unavailable [phone] Jatin Carver MD Unavailable [phone] Adryan Carver MD Unavailable [phone] Lynette Villela MD Unavailable [phone] Tracie Raphael MD Unavailable [phone] Monica Harvey Primary Care Provider [phone] Jatin Giron MD Unavailable [phone] Jatin Giron MD Primary Care Provider [phone] Monica Harvey Primary Care Provider [phone]- [phone] Ashlyn Chaparro NP Unavailable [phone]- [phone] Encounter Details Date Type Department Care Team (Late st Contact Info) Description 07/26/2021 Telephone [facility] [address] [place] [address] Sanjeev Stark, RT Social History Tobacco [...] file 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 Gender Identity Not on file Sexual Orientation Not on file documented as of this encounter Plan of Treatment Not on file documented as of this encounter Visit Diagnoses Not on filedocumented in this encounter Care Teams Storage Specialist Relationship Specialty Start Date End Date Monica Harvey PA [address] [place] [address] PCP - General Internal Medicine 09/13/19 12/30/23 Jatin Giron MD [address] [place] [address] PCP - General Family Medicine 12/31/23 01/02/24 Monica Harvey PA [address] [place] [address] PCP - General Internal Medicine 01/03/24 Christiano Kidd MD Consulting Physician Urology 02/08/19 Malcom Ramirez MD Referring Physician Obstetrics and Gynecology 07/27/19 Jatin Carver MD [address] [facility] [phone] [place] [address] Medical Oncologist Gynecologic Oncology 08/25/19 Adryan Carver MD [address] [facility] [phone] [place] [address] Surgeon General Surgery 08/25/19 Lynette Villela MD [address] [facility] [phone] [place] [address] Radiation Oncologist Radiation Oncology 08/25/19 Tracie Raphael MD [address] [facility] [phone] [place] [address] Medical Oncologist/Inspector Experimental Assembly Medical Oncology 09/08/19 04/20/25 Jatin Giron MD [address] [place] [address] [address] [place] [address] Consulting Physician Family Medicine 02/11/20 Ashlyn Chaparro NP [address] [place] [address] Nurse Practitioner Medical Oncology 04/21/25 documented as of this encounter
--- OUTSIDE RECORDS SUMMARY | 2025-06-14 10:45 | XMS_ITS ---
Author Organization [facility] [place] [address] Address [address] [place] [address] Care Team Providers Care Natural Resources Specialist Name Role Phone hCristiano Kidd MD Unavailable [phone] Malcom Ramirez MD Unavailable [phone] Jatin Carver MD Unavailable [phone] Adryan Carver MD Unavailable [phone] Jatin Giron MD Unavailable [phone] Monica Harvey Primary Care Provider [phone] Ashlyn Chaparro NP Unavailable [phone] Active Problems Problem Noted Date Diagnosed Date [...] checked Assessment & Plan (08/29/2024 8:09 PM FOREST RESOURCE SPECIALIST): Patient has neuropathy which is due probably [...] 08/25/2023 Assessment & Plan (08/25/2023 2:29 PM FOREST RESOURCE SPECIALIST): This is a significant, separately identifiable problem that was evaluated and managed on the same day as the wellness exam Patient was picking up [employer] decorations. She was walking up the steps [...] as her mom's walker. X-rays done at [facility] were negative. Has an appointment with Orthopedics but hoping to get MRI prior to that visit due to possible derangement of the internal working of the knee. Suspect meniscus verses PCL tear. Will place order for MRI right knee to be done at [facility]. Vitamin D deficiency 08/25/2023 Assessment & Plan (12/27/2023 1:07 AM CDT): Supplement Assessment & Plan (08/25/2023 2:29 PM FOREST RESOURCE SPECIALIST): Supplement Nondisplaced fracture of fif th right metatarsal bone with routine healing 09/15/2021 Assessment & Plan (09/15/2021 11:21 PM FOREST RESOURCE SPECIALIST): Referral to orthopedics for this fracture. Continue [...] 11/27/2020 Assessment & Plan (11/27/2020 9:20 PM FOREST RESOURCE SPECIALIST): This is a significant, separately identifiable problem [...] provided Assessment & Plan (08/25/2023 2:28 PM FOREST RESOURCE SPECIALIST): Mammogram order provided Assessment & Plan (12/22/2022 [...] PPI Assessment & Plan (11/27/2020 9:16 PM FOREST RESOURCE SPECIALIST): Continue PPI Assessment & Plan (05/31/2020 9:13 [...] relief Assessment & Plan (11/27/2020 9:19 PM FOREST RESOURCE SPECIALIST): Continue flonase/antihistamine prn Assessment & Plan (05/31/2020 [...] month. Assessment & Plan (09/15/2021 11:21 PM FOREST RESOURCE SPECIALIST): Continue per Oncology. She is under close surveillance Assessment & Plan (04/08/2021 12:03 AM CDT): Continue per ONC Active surveillance Assessment & Plan (11/27/2020 9:16 PM FOREST RESOURCE SPECIALIST): Continue per ONC Has imaging for close monitoring in december Assessment & Plan (09/17/2020 9:46 AM FOREST RESOURCE SPECIALIST): Active treatment/surveillance with the oncologist. 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 Imaging today. Continue with close monitoring Assessment & Plan (01/26/2020 9:53 PM CDT): Continue per ONC BMI 27.0-27.9,adult 08/16/2019 Overview (08/16/2024): Weight/BMI is in healthy range. Continue healthy lifestyle to maintain. Assessment & Plan (08/29/2024 8:08 PM FOREST RESOURCE SPECIALIST): Weight/BMI is in healthy range. Continue healthy lifestyle to maintain. Assessment & Plan (01/03/2024 3:50 PM CDT): Weight/BMI is in healthy range. Continue healthy lifestyle to maintain. Assessment & Plan (12/27/2023 1:08 AM CDT): Weight/BMI is in healthy range. Continue healthy lifestyle to maintain. Assessment & Plan (08/25/2023 2:27 PM FOREST RESOURCE SPECIALIST): Weight/BMI is in healthy range. Continue healthy lifestyle to maintain. Assessment & Plan (05/31/2020 9:17 AM CDT): Weight/BMI is in healthy range. Continue healthy lifestyle to maintain. Assessment & Plan (08/16/2019 2:34 PM FOREST RESOURCE SPECIALIST): Weight/BMI is in healthy range. Continue healthy [...] surveillance Assessment & Plan (08/16/2019 10:49 PM FOREST RESOURCE SPECIALIST): Still awaiting recommendations as vaginal mass showed [...] September Assessment & Plan (08/29/2024 8:08 PM FOREST RESOURCE SPECIALIST): Patient with osteopenia of the lumbar spine. [...] vitamin-D. Assessment & Plan (09/15/2021 11:21 PM FOREST RESOURCE SPECIALIST): Continue Fosamax weekly calcium and vitamin-D. Continue to monitor DEXA. Assessment & Plan (06/05/2021 11:05 AM CDT): Check DXA Assessment & Plan (04/08/2021 12:04 AM CDT): Continue Fosamax Assessment & Plan (11/27/2020 9:17 PM FOREST RESOURCE SPECIALIST): Continue Fosamax, calcium and Vit D. DXA [...] US. If persistent, may consider referral to [facility] HSV (herpes simplex virus) infection 02/08/2019 Overview [...] with Valtrex. Controlled type 2 diabetes m ellitus with complication, without long-term current use of [...] intake Assessment & Plan (08/29/2024 8:07 PM FOREST RESOURCE SPECIALIST): Stressed importance of continued A1c control to minimize the hydrodynamics teacher effects of diabetes. Bring accuchecks to office [...] of continued A1c control to minimize the hydrodynamics teacher effects of diabetes. Bring accuchecks to office [...] of continued A1c control to minimize the hydrodynamics teacher effects of diabetes. Bring accuchecks to office when instructed to do so. Check A1c about every 3-6 months. Take medication as prescribed. Get annual eye exam. Encouraged PADMINI/Statin if able to tolerate. Encouraged weight control and encouraged diabetic diet and exercise. Continue metformin b.i.d. Assessment & Plan (06/23/2022 6:39 PM CDT): Stressed importance of continued A1c control to minimize the intermediate effects of diabetes. Bring accuchecks to office when instructed to do so. Check A1c about every 3-6 months. Take medication as prescribed. Get annual eye exam. Encouraged PADMINI/Statin if able to tolerate. Encouraged weight control and encouraged diabetic diet and exercise. . Continue metformin 500 b.i.d. Assessment & Plan (12/16/2021 10:22 AM CDT): Stressed importance of continued A1c control to minimize the hydrodynamics teacher effects of diabetes. Bring accuchecks to office when instructed to do so. Check A1c about every 3-6 months. Take medication as prescribed. Get annual eye exam. Encouraged PADMINI/Statin if able to tolerate. Encouraged weight control and encouraged diabetic diet and exercise. Assessment & Plan (06/05/2021 10:58 AM CDT): Stressed importance of continued A1c control to minimize the intermediate effects of diabetes. Bring accuchecks to office when instructed to do so. Check A1c about every 3-6 months. Take medication as prescribed. Get annual eye exam. Encouraged PADMINI/Statin if able to tolerate. Encouraged weight control and encouraged diabetic diet and exercise. Continue metformin Assessment & Plan (04/08/2021 12:02 AM CDT): Stressed importance of continued A1c control to minimize the intermediate effects of diabetes. Bring accuchecks to office when instructed to do so. Check A1c about every 3-6 months. Take medication as prescribed. Get annual eye exam. Encouraged PADMINI/Statin if able to tolerate. Encouraged weight control and encouraged diabetic diet and exercise. Assessment & Plan (11/27/2020 9:17 PM FOREST RESOURCE SPECIALIST): Stressed importance of continued A1c control to minimize the intermediate effects of diabetes. Bring accuchecks to office when instructed to do so. Check A1c about every 3-6 months. Take medication as prescribed. Get annual eye exam. Encouraged PADMINI/Statin if able to tolerate. Encouraged weight control and encouraged diabetic diet and exercise. Due for labs to determine control Assessment & Plan (05/31/2020 9:15 AM CDT): Stressed importance of continued A1c control to minimize the hydrodynamics teacher effects of diabetes. Bring accuchecks to office when instructed to do so. Check A1c about every 3-6 months. Take medication as prescribed. Get annual eye exam. Encouraged PADMINI/Statin if able to tolerate. Encouraged weight control and encouraged diabetic diet and exercise. Due for labs Assessment & Plan (01/26/2020 9:53 PM CDT): Stressed importance of continued A1c control to minimize the hydrodynamics teacher effects of diabetes. Bring accuchecks to office when instructed to do so. Check A1c about every 3-6 months. Take medication as prescribed. Get annual eye exam. Encouraged PADMINI/Statin if able to tolerate. Encouraged weight control and encouraged diabetic diet and exercise. Continue metformin Assessment & Plan (06/30/2019 12:08 AM CDT): Stressed importance of continued A1c control to minimize the hydrodynamics teacher effects of diabetes. Bring accuchecks to office when instructed to do so. Check A1c about every 3-6 months. Take medication as prescribed. Get annual eye exam. Encouraged PADMINI/Statin if able to tolerate. Encouraged weight control and encouraged diabetic diet and exercise. Check labs Assessment & Plan (05/15/2019 3:12 PM CDT): Stressed importance of continued A1c control to minimize the intermediate effects of diabetes. Bring accuchecks to office when instructed to do so. Check A1c about every 3-6 months. Take medication as prescribed. Get annual eye exam. Encouraged PADMINI/Statin if able to tolerate. Encouraged weight control and encouraged diabetic diet and exercise. Assessment & Plan (02/21/2019 5:15 PM CDT): Stressed importance of continued A1c control to minimize the intermediate effects of diabetes. Bring accuchecks to office [...] alcohol Assessment & Plan (08/29/2024 8:07 PM FOREST RESOURCE SPECIALIST): Encouraged patient to follow low fat/low chol diet like the Mediterranean diet. Increase good fats in the diet. Increase exercise. Monitor labs as needed. Continue Crestor Assessment & Plan (12/27/2023 1:06 AM CDT): Stressed importance of continued A1c control to minimize the hydrodynamics teacher effects of diabetes. Bring accuchecks to office [...] 10 Assessment & Plan (08/25/2023 2:26 PM FOREST RESOURCE SPECIALIST): Stressed importance of continued A1c control to minimize the intermediate effects of diabetes. Bring accuchecks to office [...] of continued A1c control to minimize the hydrodynamics teacher effects of diabetes. Bring accuchecks to office [...] statin Assessment & Plan (11/27/2020 9:18 PM FOREST RESOURCE SPECIALIST): Encouraged patient to follow fat/low chol diet [...] consumption Assessment & Plan (08/29/2024 8:07 PM FOREST RESOURCE SPECIALIST): Bp is stable/in acceptable range for any co-morbidities. Encouraged to limit sodium intake and exercise for weight control. Stressed importance of continued A1c control to minimize the hydrodynamics teacher effects of diabetes. Bring accuchecks to office [...] of continued A1c control to minimize the hydrodynamics teacher effects of diabetes. Bring accuchecks to office when instructed to do so. Check A1c about every 3-6 months. Take medication as prescribed. Get annual eye exam. Encouraged PADMINI/Statin if able to tolerate. Encouraged weight control and encouraged diabetic diet and exercise. Continue lisinopril Assessment & Plan (08/25/2023 2:26 PM FOREST RESOURCE SPECIALIST): Bp is stable/in acceptable range for any [...] lisinopril Assessment & Plan (09/15/2021 11:19 PM FOREST RESOURCE SPECIALIST): Bp is stable/in acceptable range for any co-morbidities. Encouraged to limit sodium intake and exercise for weight control. Continue with lisinopril Stressed importance of continued A1c control to minimize the hydrodynamics teacher effects of diabetes. Bring accuchecks to office [...] lisinopril Assessment & Plan (11/27/2020 9:16 PM FOREST RESOURCE SPECIALIST): Bp is stable/in acceptable range for any [...] gabapentin Assessment & Plan (08/25/2023 2:27 PM FOREST RESOURCE SPECIALIST): Persistent neuropathy that really intensified when on [...] monitor. Assessment & Plan (09/15/2021 11:20 PM FOREST RESOURCE SPECIALIST): Using gabapentin 800 mg t.i.d. and Cymbalta [...] of continued A1c control to minimize the hydrodynamics teacher effects of diabetes. Bring accuchecks to office when instructed to do so. Check A1c about every 3-6 months. Take medication as prescribed. Get annual eye exam. Encouraged PADMINI/Statin if able to tolerate. Encouraged weight control and encouraged diabetic diet and exercise. Continue gabapentin Assessment & Plan (11/27/2020 9:15 PM FOREST RESOURCE SPECIALIST): Stressed importance of continued A1c control to minimize the intermediate effects of diabetes. Bring accuchecks to office [...] Cymbalta Assessment & Plan (08/16/2019 10:49 PM FOREST RESOURCE SPECIALIST): Stable with gabapentin 600mg tid. Will send [...] continued A1c control to minimize the intermediate effects of diabetes. Bring accuchecks to office [...] monitor. Assessment & Plan (08/29/2024 8:08 PM FOREST RESOURCE SPECIALIST): Depression symptoms are stable with Cymbalta Assessment & Plan (12/27/2023 1:06 AM CDT): Stable with Cymbalta Assessment & Plan (12/22/2022 9:33 AM CDT): Continue Cymbalta Assessment & Plan (06/23/2022 6:41 PM CDT): Continue Cymbalta Assessment & Plan (09/15/2021 11:20 PM FOREST RESOURCE SPECIALIST): Continue the Cymbalta Assessment & Plan (06/05/2021 11:05 AM CDT): Continue Cymbalta. Assessment & Plan (04/08/2021 12:03 AM CDT): Stable with cymbalta Assessment & Plan (11/27/2020 9:18 PM FOREST RESOURCE SPECIALIST): Continue cymbalta Assessment & Plan (05/31/2020 9:16 [...] prescribed Assessment & Plan (08/29/2024 8:08 PM FOREST RESOURCE SPECIALIST): Continue levothyroxine. Monitor labs. Assessment & Plan (12/27/2023 1:06 AM CDT): Continue levothyroxine. Monitor labs. Assessment & Plan (08/25/2023 2:27 PM FOREST RESOURCE SPECIALIST): Continue levothyroxine. Monitor labs. Assessment & Plan (12/22/2022 9:33 AM CDT): Continue levothyroxine. Monitor labs. Assessment & Plan (06/23/2022 6:41 PM CDT): Continue levothyroxine. Monitor labs. Assessment & Plan (12/16/2021 10:23 AM CDT): Continue Cymbalta Assessment & Plan (09/15/2021 11:20 PM FOREST RESOURCE SPECIALIST): Continue levothyroxine Assessment & Plan (06/05/2021 10:52 AM CDT): Continue levothyroxine. Monitor labs. Assessment & Plan (04/08/2021 12:02 AM CDT): Continue levothyroxine. Monitor labs. Assessment & Plan (11/27/2020 9:17 PM FOREST RESOURCE SPECIALIST): Continue levothyroxine Assessment & Plan (05/31/2020 9:15 [...] 05/19/2025 Assessment & Plan (08/29/2024 8:09 PM FOREST RESOURCE SPECIALIST): Flu vaccine updated in the office today Medicare annual wellness visit, subsequent 08/29/2024 05/19/2025 Assessment & Plan (08/29/2024 8:09 PM FOREST RESOURCE SPECIALIST): Encouraged healthy lifestyle, good nutrition and exercise. Encouraged Calcium and Vitamin D and weight bearing exercise for bone health. Reviewed immunizations. Reviewed age appropirate screenings. Medicare Wellness Documentation is completed within the chart Positive depression screening 12/30/2023 01/03/2024 Need for influenza vaccination 08/25/2023 12/27/2023 Assessment & Plan (08/25/2023 2:29 PM FOREST RESOURCE SPECIALIST): Flu vaccine updated in the office today Medicare annual wellness visit, subsequent 06/10/2023 12/27/2023 Assessment & Plan (08/25/2023 2:25 PM FOREST RESOURCE SPECIALIST): Encouraged healthy lifestyle, good nutrition and exercise. [...] 24 Assessment & Plan (12/10/2022 10:07 AM FOREST RESOURCE SPECIALIST): Weight/BMI is in healthy range. Continue healthy lifestyle. BMI 28.0-28.9,adult 06/22/2022 12/11/19 23 Assessment & Plan (06/23/2022 6:45 PM CDT): Weight/BMI is in healthy range. Continue healthy lifestyle to maintain. Neuropathy due to type 2 diabetes mellitus 12/16/2021 12/16/2021 Hyperlipidemia 12/16/2021 12/16/2021 Flu vaccine need 09/15/2021 06/22/2022 Assessment & Plan (09/15/2021 11:21 PM FOREST RESOURCE SPECIALIST): Flu vaccine updated in office BMI 29.0-29.9,adult 09/05/2021 06/22/20 22 Assessment & Plan (12/16/2021 10:24 AM CDT): Weight/BMI is in healthy range. Continue healthy lifestyle to maintain. Assessment & Plan (09/05/2021 1:24 PM FOREST RESOURCE SPECIALIST): Weight/BMI is in healthy range. Continue healthy [...] (04/08/2021 12:05 AM CDT): Check labs Claudication ([facility]) 04/07/202112/09 Assessment & Plan (04/08/2021 12:00 AM CDT): Leg pain seem consistent with claudication. Recommend GERA study. Prefers at [place] BMI 26.0-26.9,adult 04/06/2021 05/19/20 25 Assessment & Plan (02/07/2025 9:54 AM CDT): Weight/BMI is in healthy range. Continue healthy lifestyle to maintain. Assessment & Plan (04/06/2021 11:45 AM CDT): Weight/BMI is in healthy range. Continue healthy lifestyle to maintain. BMI 27.0-27.9,adult 11/27/2020 04/06/20 21 Assessment & Plan (11/27/2020 8:38 AM FOREST RESOURCE SPECIALIST): Weight/BMI is in healthy range. Continue healthy lifestyle to maintain. Fatigue 11/27/2020 05/19/2025 Assessment & Plan (08/25/2023 2:28 PM FOREST RESOURCE SPECIALIST): Probably multifactorial. Check labs and followup to re-evaluate Assessment & Plan (12/22/2022 9:35 AM CDT): Probably multifactorial. Check labs and followup to re-evaluate Assessment & Plan (06/23/2022 6:44 PM CDT): Probably multifactorial. Check labs and followup to re-evaluate Assessment & Plan (04/08/2021 12:04 AM CDT): Probably multifactorial. Check labs and followup to re-evaluate Assessment & Plan (11/27/2020 9:20 PM FOREST RESOURCE SPECIALIST): Probably multifactorial. Check labs and followup to re-evaluate Hyperlipidemia 11/27/2020 04/07/2021 Annual physical exam 11/24/2020 022 Assessment & Plan (12/16/2021 10:24 AM CDT): Encouraged healthy lifestyle, good nutrition and exercise. Encouraged Calcium and Vitamin D and weight bearing exercise for bone health. Reviewed immunizations Reviewed age appropirate screenings. Assessment & Plan (11/27/2020 9:18 PM FOREST RESOURCE SPECIALIST): Encouraged healthy lifestyle, good nutrition and exercise. Encouraged Calcium and Vitamin D and weight bearing exercise for bone health. Reviewed immunizations Reviewed age appropirate screenings. Nasal congestion 09/11/2020 02/07/2025 Assessment & Plan (09/17/2020 9:47 AM FOREST RESOURCE SPECIALIST): Discussed symptoms with patient. With COVID in the community it would not be wrong to test but her symptoms seem most consistent with a cold/allergies at this point. Recommend [id number] treatment and supportive therapy. If she starts running fever chills sweats notes change in her taste or smell, starts noticing a cough or a progression in symptoms she is to call and we will set her up for testing. She is in agreement with this plan. Assessment & Plan (09/11/2020 2:09 PM FOREST RESOURCE SPECIALIST): Will send patient to [place] for Covid-19 testing. The patient was advised to quarantine at least 10 days from symptom onset, but this determination will depend on result of testing. They were advised to contact us in the next 72h if they have not heard results of testing. They were advised to report to the ER if worsening. Fever 09/11/2020 11/27/2020 Assessment & Plan (09/11/2020 2:10 PM FOREST RESOURCE SPECIALIST): Will send patient to [place] for Covid-19 testing. The patient was advised [...] (07/27/2019): Added automatically from request for surgery [id number] Other fatigue 06/30/2019 05/31/2020 BMI 28.0-28.9,adult 02/08/2019 [...]
--- OUTSIDE RECORDS SUMMARY | 2025-06-14 10:45 | XMS_ITS | Encounter Summary ---
Author Organization Formerly [facility] Address [address] [place] [address] Care Team Providers Care Fourdrinier Machine Operator Name Role Phone Christiano Kidd MD Unavailable [phone] Malcom Ramirez MD Unavailable [phone] Jatin Carver MD Unavailable [phone] Adryan Carver MD Unavailable Lynette Villela MD Unavailable [phone] Tracie Raphael MD Unavailable [phone] Monica Harvey Primary Care Provider [phone] Jatin Giron MD Unavailable [phone] Jatin Giron MD Primary Care Provider [phone] Monica Harvey Primary Care Provider [phone]- [phone] Ashlyn Chaparro NP Unavailable [phone] Encounter Details Date Type Department Care Team (Late st Contact Info) Description 05/30/2020 Telephone [facility] Replaced by [facility] [address] Marcos Landeros, RT Social History [...] on file Legal Sex Female 11:59 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 09/26/2020 10/02/2020 01/24/2021 3:05 AM C DT documented as of this encounter Care Teams Fourdrinier Machine Operator Relationship Specialty Start Date End Date Monica Harvey PA [address] [place] [address] PCP - General Internal Medicine 09/13/19 12/30/23 Jatin Giron MD [address] [place] [address] PCP - General Family Medicine 12/31/23 01/02/24 Monica Harvey PA [address] [place] [address] PCP - General Internal Medicine 01/03/24 Christiano Kidd MD Consulting Physician Urology 02/08/19 Malcom Ramirez MD Referring Physician Obstetrics and Gynecology 07/27/19 Jatin Carver MD [address] [facility] [id number] [place] [address] Medical Oncologist Gynecologic Oncology 08/25/19 Adryan Carver MD [address] [facility] [id number] [place] [address] Surgeon General Surgery 08/25/19 Lynette Villela MD [address] [facility] [id number] [place] [address] Radiation Oncologist Radiation Oncology 08/25/19 Tracie Raphael MD [address] [facility] [id number] [place] [address] Medical Oncologist/Library Information Technician Medical Oncology 09/08/19 04/20/25 Jatin Giron MD [address] [facility] [address] [place] [address] Consulting Physician Family Medicine 02/11/20 Ashlyn Chaparro NP [address] [facility] [address] [facility] [address] [place] [address] Nurse Practitioner Medical Oncology 04/21/25 documented as of this encounter
== END 2025-06-14 09:37 | disposition home or self-care (01) ==
PROVIDERS: PCP Physician Assistant; Visit Provider Physician Assistant
DX: R06.09 Other forms of dyspnea (principal)
CPT/HCPCS: 93306